=== PATIENT | female | born 1955 | race Caucasian/White ===

== ENCOUNTER 2018-04-21 14:40 | Inpatient (IN) | payer BC ==
[~2018-04-21] VITALS: Ht 162.6 cm; Wt 69.5 kg
[~2018-04-21 14:40] MED LIST: ADVAIR; ALBU3IS; ALBU3IS INH; ALBU90I INH; ALBU90OI; ALBU90OI INH; ALBU90OI6 INH; ALORA; AMPI500 PO; APAP; AZIT250 PO; BENA20; BENA20 PO; BUDE200IP; BUPR150T2; Budeprion Sr150 MG PO; CALCAVITD PO; CALCIUM; CIPR500 PO; CLON.1 PO; CODEINE; CRUTCH4 USE; DICMIS50EC PO; DICMIS75EC PO; DILT300 PO; DOXY100 PO; ESOM20 PO; ESTR1; ESTR1 PO; ESTR2 PO; FAMC250 PO; FLUSAL2505; FLUSAL2505 IH; GENT.3OPSA OS; HYDACE5; HYDACE5 PO; LORA1; LORA1 PO; LORAZEPAM; METO10 PO; METO5A PO; MONT10T PO; Monodox100 MG PO; NORTRIPTYLINE; PRED10 PO; PRED20 PO; PSEHYDGUAL PO; Prednisone20 MG PO; SULTRIDS PO; TIOT18 IH; TRAM50; TRAM50 PO; ZOLP10; ZOLP10 PO; [UNRECOGNIZED DRUG - REMARK]
[2018-04-21 15:50] LABS: BASOPHILS ABSOLUTE AUTO 0.04 K/mm3 (0.00-0.23); BASOPHILS PERCENT AUTO 0 % (0-2); EOSINOPHILS ABSOLUTE AUTO 0.15 K/mm3 (0.00-0.68); EOSINOPHILS PERCENT AUTO 1 % (0-6); Hematocrit 44.2 % (33.0-51.0); IMMATURE GRAN ABSOLUTE AUTO 0.02 K/mm3 (0.00-0.10); IMMATURE GRAN PERCENT AUTO 0 % (0-1); LYMPHOCYTES ABSOLUTE AUTO 3.28 K/mm3 (0.84-5.20); LYMPHOCYTES PERCENT AUTO 30 % (21-46); MONOCYTES ABSOLUTE AUTO 0.78 K/mm3 (0.16-1.47); MONOCYTES PERCENT AUTO 7 % (4-13); Mean Corpuscular HGB 29.6 pg (26.0-34.0); Mean Corpuscular HGB Conc 33.9 g/dL (31.5-36.5); Mean Corpuscular Volume 87 fL (80-100); Mean Platelet Volume 8.5 fL (9.1-12.4); NEUTROPHILS ABSOLUTE AUTO 6.69 K/mm3 (1.96-9.15); NEUTROPHILS PERCENT AUTO 61 % (41-73); Platelet Count 374 K/mm3 (150-400); RDW Coefficient Variation 12.6 % (11.7-14.2); RDW Standard Deviation 39.9 fL (35.1-46.3); Red Blood Cell Count 5.07 M/mm3 (3.80-5.20); White Blood Cell Count 10.96 K/mm3 (4.00-11.30)
[2018-04-21 16:10] LABS: Albumin, Blood 3.8 g/dL (3.4-5.0); Bilirubin, Total 0.1 mg/dL (0.1-1.0); Bun/Creatinine Ratio 13.9 (12.0-20.0); Calcium, Blood 8.9 mg/dL (8.5-10.1); Creatinine, Blood 1.01 mg/dL (0.40-1.00); Globulin, Blood 3.9 g/dL (2.2-4.0); Potassium, Blood 3.7 mmol/L (3.5-5.5); Total Protein, Blood 7.7 g/dL (6.4-8.2)
[2018-04-21 20:11] LABS: Source, Urine Clean Catch
[2018-04-21 20:19] LABS: Appearance, Urine Hazy (Clear); Blood, Urine 1+ (Neg); Color, Urine Yellow (P-Yellow); Glucose Qualitative, Urine Neg (Neg); Ketones, Urine 1+ (Neg); Leukocyte Esterase, Urine 1+ (Neg); Nitrite, Urine Neg (Neg); Protein, Urine 2+ (Neg); Specific Gravity, Urine 1.025 (1.003-1.022); Urobilinogen, Urine 1+ (Normal)
[2018-04-21 20:28] LABS: Bilirubin, Urine 1+ (Neg)
[2018-04-21 20:30] LABS: Squamous Epithelial Cells Mod /hpf (Few)
[2018-04-21 20:31] LABS: Bacteria Rare /hpf; Red Blood Cells, Urine Not Seen /hpf (0-2)
[2018-04-21 21:35] LABS: Cholesterol 200 mg/dL (50-200); Triglycerides 379 mg/dL (30-160)
[2018-04-22 04:08] LABS: Hematocrit 38.5 % (33.0-51.0); Hemoglobin 12.9 g/dL (11.5-16.0); Mean Corpuscular HGB 29.7 pg (26.0-34.0); Mean Corpuscular HGB Conc 33.5 g/dL (31.5-36.5); Mean Corpuscular Volume 89 fL (80-100); Mean Platelet Volume 8.2 fL (9.1-12.4); Platelet Count 257 K/mm3 (150-400); RDW Coefficient Variation 12.5 % (11.7-14.2); RDW Standard Deviation 40.9 fL (35.1-46.3); Red Blood Cell Count 4.35 M/mm3 (3.80-5.20); White Blood Cell Count 7.51 K/mm3 (4.00-11.30)
[2018-04-22 04:26] LABS: Alanine Aminotransfer (ALT/SGP 16 U/L (12-78); Albumin, Blood 2.9 g/dL (3.4-5.0); Alk Phos 65 U/L (50-136); Anion Gap 6 mmol/L (6-16); Aspartate Aminotrans (AST/SGOT 19 U/L (12-37); Bilirubin, Total 0.4 mg/dL (0.1-1.0); Blood Urea Nitrogen 15 mg/dL (8-24); Bun/Creatinine Ratio 15.7 (12.0-20.0); CO2, Blood 22 mmol/L (21-32); Calcium, Blood 7.3 mg/dL (8.5-10.1); Chloride, Blood 112 mmol/L (98-108); Creatinine, Blood 0.96 mg/dL (0.40-1.00); Globulin, Blood 2.9 g/dL (2.2-4.0); Glomerular Filtration Rate >60 (60-); Glucose, Blood 95 mg/dL (70-99); Potassium, Blood 4.6 mmol/L (3.5-5.5); Sodium, Blood 140 mmol/L (136-145); Total Protein, Blood 5.8 g/dL (6.4-8.2)
[2018-04-22] MEDS ORDERED: ALBU90OI INH (12:19)
[2018-04-22] MEDS ORDERED: OMEPRAZOLE MAGN20 MG PO (12:19)
[2018-04-22] MEDS ORDERED: ESTRADIOL1 MG PO (12:20)
[2018-04-22] MEDS ORDERED: Lorazepam0.5 MG PO (12:20)
--- NOTE | 2018-04-22 13:30 | NUR ---
ADMIT NOTE- PT ADMITTED TO DAY SURGERY-MEDICAL STATUS. AWAKE, ALERT, COOPERATIVE. STATES ANXIOUS, STATES DID NOT WANT TO GO HOME, STILL HAVING PAIN. EMOTIONAL SUPPORT, REASSURANCE GIVEN WITH IMPROVEMENT. BP INITIALLY ELEVATED-173/88 AFTER FEW MINUTES OF RELAXING REPEAT BP 156/81. TEMP 99. C/O ABDOMINAL PAIN AND TENDERNESS-MID ABDOMEN, ABDOMEN SOFT WITH BOWEL SOUNDS. IV NS WITH 20 MEQ KCL AT 150 CC/HR VIA LEFT WRIST, SITE INTACT. HAS SWELLING LEFT AC-STATES HAD PREVIOUS LAB DRAW. LUNGS CLEAR, NO SOB. STATES PAIN DECREASING AFTER RX IN ER BEFORE TRANSFER. WAS ABLE TO STAND TO TRANSFER. ADMIT DONE, QUESTIONS ANSWERED.
--- NOTE | 2018-04-22 14:36 | NUR ---
HAS BEEN ABLE TO DOZE WITHOUT PROBLEMS. OXYGEN SATURATION 97-98% C/O ABDOMINAL PAIN RATES 6 ON SCALE, REQUESTING RX. PT'S HERE-UPDATED.
--- NOTE | 2018-04-22 16:45 | NUR ---
PT TO ROOM 220 VIA WC. PT ALERT AND ORIENTED. PT AMB TO RR. ORIENTED TO ROOM AND CALL LIGHT.
--- NOTE | 2018-04-22 16:59 | NUR ---
REPORT GIVEN, PT TO ROOM 220. PT ABLE TO TRANSFER TO WHEELCHAIR.
--- NOTE | 2018-04-22 17:23 | NUR ---
PT MEDICATED WITH ZOFRAN AND FENTANYL PER ORDERS. ICE CHIPS PROVIDED.
--- NOTE | 2018-04-22 18:37 | NUR ---
PT VOMITED X1 IN RR. PAIN 5/10.
--- NOTE | 2018-04-22 23:21 | NUR ---
SPOKE W/ HOSPITALIST JENNIFER, ORDERED PT'S HOME BENAZAPRIL, FIRST DOSE NOW FOR ELEVATED BP. GIVE LABETALOL IN ABOUT AN HOUR IF BENAZAPRIL INEFFECTIVE.
[2018-04-23] MEDS ORDERED: GUAI600T33 PO (00:33)
[2018-04-23 05:18] LABS: BASOPHILS ABSOLUTE AUTO 0.03 K/mm3 (0.00-0.23); BASOPHILS PERCENT AUTO 1 % (0-2); EOSINOPHILS ABSOLUTE AUTO 0.07 K/mm3 (0.00-0.68); EOSINOPHILS PERCENT AUTO 1 % (0-6); Hematocrit 36.7 % (33.0-51.0); Hemoglobin 12.4 g/dL (11.5-16.0); IMMATURE GRAN PERCENT AUTO 0 % (0-1); LYMPHOCYTES ABSOLUTE AUTO 1.92 K/mm3 (0.84-5.20); LYMPHOCYTES PERCENT AUTO 34 % (21-46); MONOCYTES ABSOLUTE AUTO 0.39 K/mm3 (0.16-1.47); MONOCYTES PERCENT AUTO 7 % (4-13); Mean Corpuscular HGB 29.2 pg (26.0-34.0); Mean Corpuscular HGB Conc 33.8 g/dL (31.5-36.5); Mean Corpuscular Volume 87 fL (80-100); Mean Platelet Volume 8.4 fL (9.1-12.4); NEUTROPHILS ABSOLUTE AUTO 3.24 K/mm3 (1.96-9.15); NEUTROPHILS PERCENT AUTO 57 % (41-73); Platelet Count 255 K/mm3 (150-400); RDW Coefficient Variation 12.3 % (11.7-14.2); RDW Standard Deviation 38.6 fL (35.1-46.3); Red Blood Cell Count 4.24 M/mm3 (3.80-5.20); White Blood Cell Count 5.65 K/mm3 (4.00-11.30)
[2018-04-23 05:43] LABS: Alanine Aminotransfer (ALT/SGP 17 U/L (12-78); Albumin, Blood 3.1 g/dL (3.4-5.0); Alk Phos 65 U/L (50-136); Anion Gap 9 mmol/L (6-16); Aspartate Aminotrans (AST/SGOT 14 U/L (12-37); Bilirubin, Total 0.9 mg/dL (0.1-1.0); Blood Urea Nitrogen 7 mg/dL (8-24); Bun/Creatinine Ratio 9.1 (12.0-20.0); CO2, Blood 21 mmol/L (21-32); Calcium, Blood 7.8 mg/dL (8.5-10.1); Chloride, Blood 109 mmol/L (98-108); Creatinine, Blood 0.77 mg/dL (0.40-1.00); Glomerular Filtration Rate >60 (60-); Glucose, Blood 88 mg/dL (70-99); Potassium, Blood 4.5 mmol/L (3.5-5.5); Sodium, Blood 139 mmol/L (136-145); Total Protein, Blood 6.1 g/dL (6.4-8.2)
--- NOTE | 2018-04-23 06:32 | NUR ---
SHIFT SUMMARY PT ADMITTED FOR ACUTE PANCREATITIS. MEDICATED FOR PAIN AND NAUSEA PER EMAR. SHE HAD SOME DRY HEAVING AND BILE BUT NO REAL EMESIS. TAKING SIPS AND CHIPS AND MEDS ONLY. PT HAD HTN OVERNIGHT AND REQUIRED IV HYDRALAZYNE BUT HER BP DID NOT IMPROVE BECAUSE SHE WAS STILL FEELING SICK AND PAINFUL. ORDERED HER HOME BENAZAPRIL PER HOSPITALIST AND PLACED TELE IN CASE OF IV LABETALOL USE, BUT THE LABETALOL WAS NOT REQUIRED. PT WAS SINUS TACH ON TELE. WILL CTM UNTIL PASS TO NEXT SHIFT.
--- NOTE | 2018-04-23 07:00 | NUR ---
REPORT FROM PABLO BIRD. ASSUMED PT CARE.
--- NOTE | 2018-04-23 07:45 | NUR ---
PT LYING IN BED. NADN. ASSESSMENT CHARTED. PT DENIES PAIN/NAUSEA AT THIS TIME. STATES NAUSEA HAPPENS IF SHE EATS TOO MANY ICE CHIPS. WILL DISCUSS DIET ADVANCEMENT AND HOME MEDS WITH PROVIDER. CALL LIGHT IN REACH.
--- NOTE | 2018-04-23 09:20 | NUR ---
PT MEDICATED PER EMAR. PAIN MEDS AND NAUSEA MEDS PROVIDED. PT UP TO RR FOR TOILETING AND TO BRUSH TEETH. FAMILY AT BEDSIDE.
--- NOTE | 2018-04-23 09:46 | NUR ---
ice chips provided to pt. coffee provided to pt spouse. pt sitting on edge of bed.
--- NOTE | 2018-04-23 13:26 | NUR ---
PT SLEEPING. SPOUSE AT BEDSIDE. NEW BAG IVF STARTED.
--- NOTE | 2018-04-23 15:05 | NUR ---
dr villaseñor to room for eval.
--- NOTE | 2018-04-23 16:47 | NUR ---
PT DENIES NAUSEA, DENIES PAIN. MEDICATED WITH HYDRALAZINE FOR HBP. ASKING FOR SHELTON THOMAS.
--- NOTE | 2018-04-23 17:35 | NUR ---
PT STATES VEGETABLE BROTH MADE HER NAUSEATED. PT REQUESTED NAUSEA AND PAIN MEDS. BOTH PROVIDED PER EMAR.
--- NOTE | 2018-04-23 18:27 | NUR ---
PAIN IMPROVED. PT C/O PEREZ AT THIS TIME. PT STATES NAUSEA STILL PRESENT. NEW ICE CHIPS PROVIDED. CHICKEN BROTH PROVIDED.
--- NOTE | 2018-04-24 07:10 | NUR ---
REPORT FROM KENTON BIRD. ASSUMED PT CARE. PT RESTING IN POSITION OF COMFORT.
--- NOTE | 2018-04-24 07:39 | NUR ---
SHIFT SUMMARY PT REMAINS ON FLOOR FOR ACUTE PANCREATITIS. SHE HAS BEEN GENERALLY MORE COMFORTABLE OVERNIGHT, MEDICATED FOR PAIN AND NAUSEA X1, SLEPT MOST OF THE NIGHT. SHE KEPT ICE CHIPS AND WATER DOWN, DID NOT REATTEMPT FURTHER CLEARS AT THIS TIME. NO ACUTE CHANGES. PT A&O, MAKES NEEDS KNOWN. INDEP TO BR. MAINTAINENCE FLUIDS W/ POTASSIUM CONTINUED. REPORT PASSED TO ONCOMING SHIFT.
--- NOTE | 2018-04-24 08:20 | NUR ---
SHELTON PROVIDED PER PT REQUEST. PT MEDICATED WITH NEW IVF, FENTANYL AND REGLAN. WILL CONT TO MONITOR.
--- NOTE | 2018-04-24 09:35 | NUR ---
DR ISTRATE TO ROOM. PLAN FOR SOME REPEAT LABS TODAY, A REPEAT CXR AND POT DC HOME.
--- NOTE | 2018-04-24 09:45 | NUR ---
PT UP TO SHOWER INDEPENDENTLY. PT IV COVERED.
[2018-04-24 10:28] LABS: BASOPHILS ABSOLUTE AUTO 0.03 K/mm3 (0.00-0.23); BASOPHILS PERCENT AUTO 1 % (0-2); EOSINOPHILS ABSOLUTE AUTO 0.08 K/mm3 (0.00-0.68); EOSINOPHILS PERCENT AUTO 1 % (0-6); Hematocrit 38.1 % (33.0-51.0); Hemoglobin 12.8 g/dL (11.5-16.0); IMMATURE GRAN PERCENT AUTO 0 % (0-1); LYMPHOCYTES PERCENT AUTO 33 % (21-46); MONOCYTES ABSOLUTE AUTO 0.41 K/mm3 (0.16-1.47); MONOCYTES PERCENT AUTO 7 % (4-13); Mean Corpuscular HGB 29.6 pg (26.0-34.0); Mean Corpuscular HGB Conc 33.6 g/dL (31.5-36.5); Mean Corpuscular Volume 88 fL (80-100); Mean Platelet Volume 8.2 fL (9.1-12.4); NEUTROPHILS ABSOLUTE AUTO 3.73 K/mm3 (1.96-9.15); NEUTROPHILS PERCENT AUTO 59 % (41-73); Platelet Count 282 K/mm3 (150-400); RDW Standard Deviation 38.7 fL (35.1-46.3); Red Blood Cell Count 4.33 M/mm3 (3.80-5.20); White Blood Cell Count 6.35 K/mm3 (4.00-11.30)
--- NOTE | 2018-04-24 10:33 | NUR ---
PT TO IMAGING.
[2018-04-24 11:02] LABS: Alanine Aminotransfer (ALT/SGP 22 U/L (12-78); Albumin, Blood 3.5 g/dL (3.4-5.0); Alk Phos 68 U/L (50-136); Anion Gap 11 mmol/L (6-16); Aspartate Aminotrans (AST/SGOT 13 U/L (12-37); Bilirubin, Total 0.4 mg/dL (0.1-1.0); Blood Urea Nitrogen 6 mg/dL (8-24); Bun/Creatinine Ratio 8.2 (12.0-20.0); CO2, Blood 21 mmol/L (21-32); Calcium, Blood 8.5 mg/dL (8.5-10.1); Chloride, Blood 104 mmol/L (98-108); Creatinine, Blood 0.74 mg/dL (0.40-1.00); Globulin, Blood 3.4 g/dL (2.2-4.0); Glomerular Filtration Rate >60 (60-); Glucose, Blood 100 mg/dL (70-99); Potassium, Blood 3.7 mmol/L (3.5-5.5); Sodium, Blood 136 mmol/L (136-145); Total Protein, Blood 6.9 g/dL (6.4-8.2)
--- NOTE | 2018-04-24 12:20 | NUR ---
PT MOVING ABOUT IN ROOM. FAMILY PRESENT. SHELTON PAUL.
--- NOTE | 2018-04-24 13:16 | NUR ---
DR FERRERA CALLED RE PT JOSEFA PO AND LAB RESULTS. AWAITING CALL BACK. PT JOSEFA PO, VSS (BP IMPORVED). PT PROVIDED MORE CHICKEN NOODLE SOUP.
--- NOTE | 2018-04-24 13:40 | NUR ---
ISTRATE UPDATED ON PT READINESS FOR DC.
--- NOTE | 2018-04-24 14:45 | NUR ---
THIS RN ARRANGED NEW PT APPT WITH DR ONEILL. PT AWARE. PT PROVIDED APPLICATION AND INFORMATION FOR HOSP FINANCIAL ASSISTANCE.
--- NOTE | 2018-04-24 15:10 | NUR ---
DISCUSSED DC WITH PT. REVIEWED PACKET AND PRESCRIPTION INFO. DISCUSSED NEW PT APPT WITH PT AND SPOUSE. PT VERBALIZED UNDERSTANDING.
--- NOTE | 2018-04-24 15:24 | NUR ---
PT ASSISTED TO DC LOBBY VIA WC WITH FAMILY. ALL BELONGINGS WITH PT.
== END 2018-04-24 15:32 | disposition home or self-care (01) | DRG 440 ==
LOC: ER 14:40 → ERHOLD 21:41 → SURS 04-22 16:51
PROVIDERS: Family Medicine; Internal Medicine; Nurse Practitioner Acute Care; Physician Assistant; ADMIT Internal Medicine
DX: K85.20 Alcohol induced acute pancreatitis without necrosis or infection (principal); I10 Essential (primary) hypertension; E78.1 Pure hyperglyceridemia; F32.9 Major depressive disorder, single episode, unspecified; J45.20 Mild intermittent asthma, uncomplicated; K59.09 Other constipation; Z88.5 Allergy status to narcotic agent; Z88.2 Allergy status to sulfonamides; Z88.8 Allergy status to other drugs, medicaments and biological substances; Z87.891 Personal history of nicotine dependence
CPT/HCPCS: 36415; 71046; 74176; 76705; 80053; 81001; 82465; 83605; 83690; 84478; 85025; 85027; 87086; 93005; 93010; 94640; 94760; 96361; 96374; 96375; 96376; 99285-25; J0360; J1650; J1885; J2060; J2405; J2765; J3010; J3480; J7030

== ENCOUNTER 2018-06-12 10:29 | Emergency (ER) | payer BC ==
[~2018-06-12] VITALS: Ht 162.6 cm; Wt 68.0 kg
[~2018-06-12 10:29] MED LIST changes: +ESTRADIOL1 MG PO; +GUAI600T33 PO; +Lorazepam0.5 MG PO; +OMEPRAZOLE MAGN20 MG PO
[2018-06-12 11:22] LABS: Source, Urine Clean Catch
[2018-06-12 11:24] LABS: Blood, Urine 1+ (Neg); Glucose Qualitative, Urine Neg (Neg); Ketones, Urine Neg (Neg); Leukocyte Esterase, Urine 3+ (Neg); Nitrite, Urine Pos (Neg); Protein, Urine 1+ (Neg); Urobilinogen, Urine 2+ (Normal)
[2018-06-12 11:46] LABS: Bilirubin, Urine 2+ (Neg)
[2018-06-12 11:47] LABS: Appearance, Urine Hazy (Clear); Bacteria Many /hpf; Color, Urine Amber (P-Yellow); Squamous Epithelial Cells Few /hpf (Few); White Blood Cells, Urine 50-100 /hpf (0-5)
[2018-06-12] MEDS ORDERED: Pyridium100 MG PO (11:49)
[2018-06-12] MEDS ORDERED: CEFP200 PO (11:49)
[2018-06-16] MEDS ORDERED: ALBU3IS INH (11:43)
[2018-06-16] MEDS ORDERED: Prednisone20 MG PO (11:43)
== END 2018-06-12 11:58 | disposition home or self-care (01) ==
LOC: ER 10:29
PROVIDERS: Physician Assistant
DX: N39.0 Urinary tract infection, site not specified (principal); Z88.5 Allergy status to narcotic agent; Z88.8 Allergy status to other drugs, medicaments and biological substances; Z88.2 Allergy status to sulfonamides; Z88.1 Allergy status to other antibiotic agents; Z79.899 Other long term (current) drug therapy; Z79.52 Long term (current) use of systemic steroids; I10 Essential (primary) hypertension; J45.909 Unspecified asthma, uncomplicated; Z87.891 Personal history of nicotine dependence
CPT/HCPCS: 81001; 87077; 87086; 87186; 99283

== ENCOUNTER 2018-06-18 11:56 | Emergency (ER) | payer BC ==
[~2018-06-18] VITALS: Ht 162.6 cm; Wt 68.0 kg
[~2018-06-18 11:56] MED LIST changes: +CEFP200 PO; +Pyridium100 MG PO
[2018-06-18 13:05] LABS: BASOPHILS ABSOLUTE AUTO 0.03 K/mm3 (0.00-0.23); BASOPHILS PERCENT AUTO 0 % (0-2); EOSINOPHILS ABSOLUTE AUTO 0.02 K/mm3 (0.00-0.68); EOSINOPHILS PERCENT AUTO 0 % (0-6); Hematocrit 36.4 % (33.0-51.0); Hemoglobin 11.7 g/dL (11.5-16.0); IMMATURE GRAN ABSOLUTE AUTO 0.16 K/mm3 (0.00-0.10); IMMATURE GRAN PERCENT AUTO 1 % (0-1); LYMPHOCYTES ABSOLUTE AUTO 1.67 K/mm3 (0.84-5.20); LYMPHOCYTES PERCENT AUTO 11 % (21-46); MONOCYTES ABSOLUTE AUTO 0.34 K/mm3 (0.16-1.47); MONOCYTES PERCENT AUTO 2 % (4-13); Mean Corpuscular HGB 29.1 pg (26.0-34.0); Mean Corpuscular HGB Conc 32.1 g/dL (31.5-36.5); Mean Corpuscular Volume 91 fL (80-100); Mean Platelet Volume 8.8 fL (9.1-12.4); NEUTROPHILS PERCENT AUTO 86 % (41-73); NRBC ABSOLUTE 0.03 K/mm3 (0.00-0.02); NRBC Auto 0.2 /100 WBC (0.0-0.2); Platelet Count 311 K/mm3 (150-400); RDW Standard Deviation 47.2 fL (35.1-46.3); Red Blood Cell Count 4.02 M/mm3 (3.80-5.20); White Blood Cell Count 15.62 K/mm3 (4.00-11.30)
[2018-06-18 13:28] LABS: Albumin, Blood 4.2 g/dL (3.4-5.0); Albumin/Globulin Ratio 1.4 (0.8-1.8); Bilirubin, Total 0.8 mg/dL (0.1-1.0); Bun/Creatinine Ratio 19.8 (12.0-20.0); Calcium, Blood 9.1 mg/dL (8.5-10.1); Creatinine, Blood 1.26 mg/dL (0.40-1.00); Total Protein, Blood 7.2 g/dL (6.4-8.2)
[2018-06-19] MEDS ORDERED: Proventil5 MG/1 ML INH (17:28)
== END 2018-06-18 14:36 | disposition home or self-care (01) ==
LOC: ER 11:56
PROVIDERS: Physician Assistant
DX: J45.901 Unspecified asthma with (acute) exacerbation (principal); I10 Essential (primary) hypertension; Z79.899 Other long term (current) drug therapy; Z88.5 Allergy status to narcotic agent; Z88.2 Allergy status to sulfonamides
CPT/HCPCS: 36415; 80053; 85025; 94644; 96360; 99285-25; J7030

== ENCOUNTER 2018-08-14 10:25 | Emergency (ER) | payer MEDICARE, OTHER ==
[~2018-08-14] VITALS: Ht 162.6 cm; Wt 68.0 kg
[~2018-08-14 10:25] MED LIST changes: +Proventil5 MG/1 ML INH
[2018-08-14 10:50] LABS: Source, Urine Clean Catch
[2018-08-14 10:53] LABS: Bilirubin, Urine Neg (Neg); Blood, Urine 1+ (Neg); Glucose Qualitative, Urine Neg (Neg); Ketones, Urine Neg (Neg); Leukocyte Esterase, Urine 1+ (Neg); Nitrite, Urine Pos (Neg); Protein, Urine 1+ (Neg); Urobilinogen, Urine NORM (Normal)
[2018-08-14 11:08] LABS: Appearance, Urine Clear (Clear); Color, Urine Yellow (P-Yellow)
[2018-08-14 11:09] LABS: Red Blood Cells, Urine 0-2 /hpf (0-2); Squamous Epithelial Cells Few /hpf (Few)
[2018-08-14 11:10] LABS: Amorphous Mod ({null, 0-Heavy}); Bacteria Few /hpf
[2018-08-14 12:59] LABS: BASOPHILS ABSOLUTE AUTO 0.03 K/mm3 (0.00-0.23); BASOPHILS PERCENT AUTO 1 % (0-2); EOSINOPHILS ABSOLUTE AUTO 0.08 K/mm3 (0.00-0.68); EOSINOPHILS PERCENT AUTO 1 % (0-6); Hematocrit 39.2 % (33.0-51.0); Hemoglobin 13.1 g/dL (11.5-16.0); IMMATURE GRAN ABSOLUTE AUTO 0.01 K/mm3 (0.00-0.10); IMMATURE GRAN PERCENT AUTO 0 % (0-1); LYMPHOCYTES ABSOLUTE AUTO 2.49 K/mm3 (0.84-5.20); LYMPHOCYTES PERCENT AUTO 39 % (21-46); MONOCYTES ABSOLUTE AUTO 0.43 K/mm3 (0.16-1.47); MONOCYTES PERCENT AUTO 7 % (4-13); Mean Corpuscular HGB 29.2 pg (26.0-34.0); Mean Corpuscular HGB Conc 33.4 g/dL (31.5-36.5); Mean Corpuscular Volume 87 fL (80-100); Mean Platelet Volume 9.1 fL (9.1-12.4); NEUTROPHILS ABSOLUTE AUTO 3.38 K/mm3 (1.96-9.15); NEUTROPHILS PERCENT AUTO 53 % (41-73); Platelet Count 300 K/mm3 (150-400); RDW Coefficient Variation 13.2 % (11.7-14.2); RDW Standard Deviation 42.7 fL (35.1-46.3); Red Blood Cell Count 4.49 M/mm3 (3.80-5.20); White Blood Cell Count 6.42 K/mm3 (4.00-11.30)
[2018-08-14 13:06] LABS: Alanine Aminotransfer (ALT/SGP 24 U/L (12-78); Albumin, Blood 3.8 g/dL (3.4-5.0); Albumin/Globulin Ratio 1.2 (0.8-1.8); Alk Phos 82 U/L (50-136); Anion Gap 8 mmol/L (6-16); Aspartate Aminotrans (AST/SGOT 23 U/L (12-37); Bilirubin, Total 0.5 mg/dL (0.1-1.0); Blood Urea Nitrogen 15 mg/dL (8-24); Bun/Creatinine Ratio 15.5 (12.0-20.0); CO2, Blood 26 mmol/L (21-32); Calcium, Blood 8.8 mg/dL (8.5-10.1); Chloride, Blood 105 mmol/L (98-108); Creatinine, Blood 0.97 mg/dL (0.40-1.00); Globulin, Blood 3.3 g/dL (2.2-4.0); Glomerular Filtration Rate >60 (60-); Glucose, Blood 97 mg/dL (70-99); Sodium, Blood 139 mmol/L (136-145); Total Protein, Blood 7.1 g/dL (6.4-8.2)
== END 2018-08-14 14:59 | disposition home or self-care (01) ==
LOC: ER 10:25
PROVIDERS: Emergency Medicine
DX: R10.13 Epigastric pain (principal); R10.11 Right upper quadrant pain; R11.0 Nausea; J45.909 Unspecified asthma, uncomplicated; I10 Essential (primary) hypertension; M54.9 Dorsalgia, unspecified; G89.29 Other chronic pain; Z88.5 Allergy status to narcotic agent; Z88.2 Allergy status to sulfonamides; Z88.8 Allergy status to other drugs, medicaments and biological substances; Z79.899 Other long term (current) drug therapy; Z87.891 Personal history of nicotine dependence
CPT/HCPCS: 36415; 76705; 80053; 81001; 83690; 85025; 87086; 94640; 96361; 96374; 96375; 99284-25; J1885; J2405; J2765; J3010; J7030

== ENCOUNTER 2018-11-26 08:42 | Emergency (ER) | payer MEDICARE, OTHER ==
[~2018-11-26] VITALS: Ht 162.6 cm; Wt 70.3 kg
[2018-11-26 09:13] LABS: BASOPHILS ABSOLUTE AUTO 0.03 K/mm3 (0.00-0.23); BASOPHILS PERCENT AUTO 1 % (0-2); EOSINOPHILS ABSOLUTE AUTO 0.07 K/mm3 (0.00-0.68); EOSINOPHILS PERCENT AUTO 1 % (0-6); Hematocrit 37.9 % (33.0-51.0); Hemoglobin 12.7 g/dL (11.5-16.0); IMMATURE GRAN ABSOLUTE AUTO 0.01 K/mm3 (0.00-0.10); IMMATURE GRAN PERCENT AUTO 0 % (0-1); LYMPHOCYTES ABSOLUTE AUTO 3.16 K/mm3 (0.84-5.20); LYMPHOCYTES PERCENT AUTO 53 % (21-46); MONOCYTES ABSOLUTE AUTO 0.37 K/mm3 (0.16-1.47); MONOCYTES PERCENT AUTO 6 % (4-13); Mean Corpuscular HGB 28.7 pg (26.0-34.0); Mean Corpuscular HGB Conc 33.5 g/dL (31.5-36.5); Mean Corpuscular Volume 86 fL (80-100); Mean Platelet Volume 8.9 fL (9.1-12.4); NEUTROPHILS PERCENT AUTO 39 % (41-73); Platelet Count 246 K/mm3 (150-400); RDW Standard Deviation 40.3 fL (35.1-46.3); Red Blood Cell Count 4.43 M/mm3 (3.80-5.20); White Blood Cell Count 5.94 K/mm3 (4.00-11.30)
[2018-11-26 09:29] LABS: Alanine Aminotransfer (ALT/SGP 23 U/L (12-78); Albumin, Blood 3.6 g/dL (3.4-5.0); Albumin/Globulin Ratio 1.2 (0.8-1.8); Alk Phos 61 U/L (50-136); Anion Gap 6 mmol/L (6-16); Aspartate Aminotrans (AST/SGOT 17 U/L (12-37); Bilirubin, Total 0.4 mg/dL (0.1-1.0); Blood Urea Nitrogen 19 mg/dL (8-24); CO2, Blood 26 mmol/L (21-32); Calcium, Blood 8.8 mg/dL (8.5-10.1); Chloride, Blood 106 mmol/L (98-108); Creatinine, Blood 0.87 mg/dL (0.40-1.00); Glomerular Filtration Rate >60 (60-); Glucose, Blood 100 mg/dL (70-99); Sodium, Blood 138 mmol/L (136-145); Total Protein, Blood 6.6 g/dL (6.4-8.2); Troponin I <0.015 ng/mL (0.000-0.040)
[2018-11-26] MEDS ORDERED: Robaxin750 MG PO (09:45)
[2018-11-26] MEDS ORDERED: Prednisone10 MG (09:46)
[2018-11-26] MEDS ORDERED: MONT10T PO (09:49)
[2018-11-26 10:55] LABS: Source, Urine Clean Catch
[2018-11-26 11:00] LABS: Appearance, Urine Clear (Clear); Bilirubin, Urine Neg (Neg); Blood, Urine Neg (Neg); Color, Urine Yellow (P-Yellow); Glucose Qualitative, Urine Neg (Neg); Ketones, Urine Neg (Neg); Leukocyte Esterase, Urine Neg (Neg); Nitrite, Urine Neg (Neg); Protein, Urine Neg (Neg); Specific Gravity, Urine 1.015 (1.003-1.022); Urobilinogen, Urine NORM (Normal); pH, Urine 6.5 (5.0-8.0)
== END 2018-11-26 12:07 | disposition home or self-care (01) ==
LOC: ER 08:42
PROVIDERS: Emergency Medicine
DX: R55 Syncope and collapse (principal); S00.12XA Contusion of left eyelid and periocular area, initial encounter; S80.212A Abrasion, left knee, initial encounter; I10 Essential (primary) hypertension; J45.909 Unspecified asthma, uncomplicated; Z87.01 Personal history of pneumonia (recurrent); Z87.891 Personal history of nicotine dependence; Z88.5 Allergy status to narcotic agent; Z88.8 Allergy status to other drugs, medicaments and biological substances; Z88.2 Allergy status to sulfonamides; Z88.1 Allergy status to other antibiotic agents; Z79.899 Other long term (current) drug therapy; X58.XXXA Exposure to other specified factors, initial encounter
CPT/HCPCS: 70450; 80053; 81003; 83690; 84484; 85025; 93005; 93010; 99284-25

== ENCOUNTER 2020-02-06 16:22 | Inpatient (IN) | payer MEDICARE, OTHER ==
[~2020-02-06] VITALS: Ht 162.6 cm; Wt 78.8 kg
[~2020-02-06 16:22] MED LIST changes: +Avidoxy100 MG PO; +Prednisone10 MG; +Robaxin750 MG PO
[2020-02-06 19:05] LABS: Influenza A, PCR Negative (NEGATIVE); Influenza B, PCR Negative (NEGATIVE); Resp Syncytial Virus, PCR Negative (NEGATIVE); SARS-Cov-2 (COVID-19) PCR, MMC Negative (NEGATIVE)
[2020-02-06] MEDS ORDERED: AMOCLA875 PO (19:12)
[2020-02-06] MEDS ORDERED: ESCI20 PO (21:14)
[2020-02-06] MEDS ORDERED: FAMC250 PO (21:14)
[2020-02-06] MEDS ORDERED: Qualaquin324 MG PO (21:14)
[2020-02-06] MEDS ORDERED: CHLO25B PO (21:15)
[2020-02-06] MEDS ORDERED: DILT60ER PO (21:15)
[2020-02-06] MEDS ORDERED: ESTRADIOL1 M1 PO (21:16)
[2020-02-06] MEDS ORDERED: EC-NAPROXEN375 MG PO (21:17)
[2020-02-06] MEDS ORDERED: AMIT25 PO (21:17)
--- NOTE | 2020-02-07 04:47 | NUR ---
MARBLE FINISHER SUMMARY PT ADMITTED FROM ED THIS SHIFT. PT A&OX4, ABLE TO MAKE NEEDS KNOWN. PLEASANT AND COOPERATIVE TO CARE. NO C/O PAIN OR ANY DISCOMFORT. DENIES CP OR N&V. EXPIRATORY WHEEZE NOTED UPON AUSCULTATION, SOB WITH EXERTION. PT CALM AND RESTED IN BED AT THIS TIME. RESPIRATION EVEN AND UNLABORED IN RA. SATS >90%. VSS. PT SBA TO BATHROOM. BED AT LOWEST POSITION. CALL LIGHT WITHIN REACH.
[2020-02-07 05:35] LABS: BASOPHILS ABSOLUTE AUTO 0.04 K/mm3 (0.00-0.23); BASOPHILS PERCENT AUTO 0 % (0-2); EOSINOPHILS PERCENT AUTO 0 % (0-6); Hematocrit 36.9 % (33.0-51.0); Hemoglobin 12.3 g/dL (11.5-16.0); IMMATURE GRAN ABSOLUTE AUTO 0.61 K/mm3 (0.00-0.10); IMMATURE GRAN PERCENT AUTO 3 % (0-1); LYMPHOCYTES ABSOLUTE AUTO 1.23 K/mm3 (0.84-5.20); LYMPHOCYTES PERCENT AUTO 6 % (21-46); MONOCYTES ABSOLUTE AUTO 0.56 K/mm3 (0.16-1.47); MONOCYTES PERCENT AUTO 3 % (4-13); Mean Corpuscular HGB 29.9 pg (26.0-34.0); Mean Corpuscular HGB Conc 33.3 g/dL (31.5-36.5); Mean Corpuscular Volume 90 fL (80-100); Mean Platelet Volume 8.4 fL (9.1-12.4); NEUTROPHILS ABSOLUTE AUTO 17.39 K/mm3 (1.96-9.15); NEUTROPHILS PERCENT AUTO 88 % (41-73); Platelet Count 275 K/mm3 (150-400); RDW Coefficient Variation 13.2 % (11.7-14.2); RDW Standard Deviation 43.5 fL (35.1-46.3); Red Blood Cell Count 4.12 M/mm3 (3.80-5.20); White Blood Cell Count 19.83 K/mm3 (4.00-11.30)
[2020-02-07 06:01] LABS: Alanine Aminotransfer (ALT/SGP 34 U/L (12-78); Albumin, Blood 2.9 g/dL (3.4-5.0); Alk Phos 55 U/L (50-136); Anion Gap 10 mmol/L (6-16); Aspartate Aminotrans (AST/SGOT 13 U/L (12-37); Bilirubin, Total 0.3 mg/dL (0.1-1.0); Blood Urea Nitrogen 27 mg/dL (8-24); Bun/Creatinine Ratio 29.4 (12.0-20.0); CO2, Blood 26 mmol/L (21-32); Calcium, Blood 9.2 mg/dL (8.5-10.1); Chloride, Blood 98 mmol/L (98-108); Creatinine, Blood 0.92 mg/dL (0.40-1.00); Glomerular Filtration Rate >60 (60-); Glucose, Blood 143 mg/dL (70-99); Potassium, Blood 4.7 mmol/L (3.5-5.5); Sodium, Blood 134 mmol/L (136-145); Total Protein, Blood 5.9 g/dL (6.4-8.2)
--- NOTE | 2020-02-07 15:19 | NUR ---
PATIENT PLEASANT AND COOPERATIVE WITH STAFF. BP SLIGHTLY ELEVATED, VITALS OTHERWISE WNL. L/S WITH WHEEZES T/O. PATIENT REQUESTS BREATHING TREATMENTS PER RT NEEDED. INDEPENDENT IN ROOM. CALLS FOR STAFF ASSIST NEEDED. PATIENT RESTING IN ROOM WITH FAMILY AT BEDSIDE AT THIS TIME. WILL CONTINUE TO MONITOR AND PROVIDE CARE NEEDED.
[2020-02-07] MEDS ORDERED: CLON1 PO (15:32)
[2020-02-07] MEDS ORDERED: NYAMYC15 G1 TOP (15:32)
--- NOTE | 2020-02-08 05:43 | NUR ---
SHIFT SUMMARY: BP 165 THIS AM. 02 91% ON RA. RESPS REG, EVEN, NON-LABORED. WHEEZING AUSCULTATED IN B UPPER LOBES. PT REPORTS OCC, INFREQUENT, DRY COUGH. CONTINUES W/ EXERTIONAL DYSPNEA. NS AT 100MLS/HR. IV SOLU-MEDROL ADMINISTERED PER ORDERS. NO ACUTE CHANGES OVERNIGHT. WILL CONT TO MONITOR.
[2020-02-08 06:05] LABS: BASOPHILS ABSOLUTE AUTO 0.03 K/mm3 (0.00-0.23); BASOPHILS PERCENT AUTO 0 % (0-2); EOSINOPHILS PERCENT AUTO 0 % (0-6); Hematocrit 37.3 % (33.0-51.0); Hemoglobin 12.2 g/dL (11.5-16.0); IMMATURE GRAN ABSOLUTE AUTO 0.59 K/mm3 (0.00-0.10); IMMATURE GRAN PERCENT AUTO 4 % (0-1); LYMPHOCYTES ABSOLUTE AUTO 1.35 K/mm3 (0.84-5.20); LYMPHOCYTES PERCENT AUTO 8 % (21-46); MONOCYTES ABSOLUTE AUTO 0.67 K/mm3 (0.16-1.47); MONOCYTES PERCENT AUTO 4 % (4-13); Mean Corpuscular HGB 29.6 pg (26.0-34.0); Mean Corpuscular HGB Conc 32.7 g/dL (31.5-36.5); Mean Corpuscular Volume 91 fL (80-100); Mean Platelet Volume 8.4 fL (9.1-12.4); NEUTROPHILS ABSOLUTE AUTO 13.82 K/mm3 (1.96-9.15); NEUTROPHILS PERCENT AUTO 84 % (41-73); Platelet Count 249 K/mm3 (150-400); RDW Coefficient Variation 13.3 % (11.7-14.2); RDW Standard Deviation 44.1 fL (35.1-46.3); Red Blood Cell Count 4.12 M/mm3 (3.80-5.20); White Blood Cell Count 16.46 K/mm3 (4.00-11.30)
[2020-02-08 06:29] LABS: Albumin, Blood 2.7 g/dL (3.4-5.0); Anion Gap 6 mmol/L (6-16); Blood Urea Nitrogen 34 mg/dL (8-24); CO2, Blood 27 mmol/L (21-32); Calcium, Blood 8.7 mg/dL (8.5-10.1); Chloride, Blood 103 mmol/L (98-108); Creatinine, Blood 1.03 mg/dL (0.40-1.00); Glomerular Filtration Rate 57 (60-); Glucose, Blood 137 mg/dL (70-99); Phosphorus, Blood 3.9 mg/dL (2.5-4.9); Potassium, Blood 4.4 mmol/L (3.5-5.5); Sodium, Blood 136 mmol/L (136-145)
--- NOTE | 2020-02-08 16:52 | NUR ---
PATIENT IS PLEASANT AND COOPERATIVE WITH STAFF. SHE OCCASIONALLY RUNS HIGH WITH HIS BP. MORNING VITALS SHE HAD A SBP IN THE 180s. I ADMINISTERED HER AM MEDS WHICH INCLUDED ALL HER BLOOD PRESSURE MEDICATIONS AND HER BP DID COME DOWN TO A MORE COMFORTABLE SPOT. SHE CONTINUES TO GET A HEADACHE OFF AND ON AND WILL TAKE TYLENOL OR NEPROXYN WITH SOME EFFECTIVENESS. PENDING PATIENT CONTINUING TO IMPROVE IN OVER-ALL STATUS, PATIENT TO DISCHARGE HOME TOMORROW. PATIENT RESTING IN ROOM AT THIS TIME. WILL CONTINUE TO MONITOR AND PROVIDE CARE NEEDED.
--- NOTE | 2020-02-09 04:30 | NUR ---
SHIFT SUMMARY ADMITTED FOR ASTHMA EXACERBATION. FULL CODE. HOPEFUL FOR DC TODAY. IV STEROIDS ARE SCHEDULED. RT TX'S AVAILABLE. TYLENOL AVAILABLE FOR HEADACHES. NO COMPLAINTS THIS SHIFT. HX OF ANXIETY. SHE LIVES WITH FAMILY.
[2020-02-09 05:31] LABS: BASOPHILS ABSOLUTE AUTO 0.05 K/mm3 (0.00-0.23); BASOPHILS PERCENT AUTO 0 % (0-2); EOSINOPHILS PERCENT AUTO 0 % (0-6); Hematocrit 38.8 % (33.0-51.0); Hemoglobin 12.4 g/dL (11.5-16.0); IMMATURE GRAN ABSOLUTE AUTO 1.04 K/mm3 (0.00-0.10); IMMATURE GRAN PERCENT AUTO 5 % (0-1); LYMPHOCYTES PERCENT AUTO 9 % (21-46); MONOCYTES PERCENT AUTO 5 % (4-13); Mean Corpuscular HGB 29.4 pg (26.0-34.0); Mean Corpuscular Volume 92 fL (80-100); Mean Platelet Volume 8.5 fL (9.1-12.4); NEUTROPHILS ABSOLUTE AUTO 16.16 K/mm3 (1.96-9.15); NEUTROPHILS PERCENT AUTO 81 % (41-73); Platelet Count 253 K/mm3 (150-400); RDW Coefficient Variation 13.5 % (11.7-14.2); RDW Standard Deviation 45.4 fL (35.1-46.3); Red Blood Cell Count 4.22 M/mm3 (3.80-5.20); White Blood Cell Count 19.85 K/mm3 (4.00-11.30)
[2020-02-09 05:57] LABS: Albumin, Blood 2.6 g/dL (3.4-5.0); Anion Gap 5 mmol/L (6-16); BAND PERCENT MAN 1 % (0-8); BASOPHILS PERCENT MAN 0 % (0-2); Blood Urea Nitrogen 41 mg/dL (8-24); Bun/Creatinine Ratio 39.8 (12.0-20.0); CO2, Blood 29 mmol/L (21-32); Calcium, Blood 8.9 mg/dL (8.5-10.1); Chloride, Blood 100 mmol/L (98-108); Creatinine, Blood 1.03 mg/dL (0.40-1.00); EOSINOPHILS PERCENT MAN 0 % (0-6); Glomerular Filtration Rate 57 (60-); Glucose, Blood 134 mg/dL (70-99); LYMPHOCYTES ABSOLUTE MAN 1.19 K/mm3 (0.84-5.20); LYMPHOCYTES PERCENT MAN 6 % (21-46); METAMYELOCYTE ABSOLUTE MAN 0.39 K/mm3 (0.00-0.00); METAMYELOCYTE PERCENT MAN 2 % (0-0); MONOCYTES ABSOLUTE MAN 0.79 K/mm3 (0.16-1.47); MONOCYTES PERCENT MAN 4 % (4-13); NEUTROPHILS ABSOLUTE MAN 17.46 K/mm3 (1.96-9.15); Potassium, Blood 4.5 mmol/L (3.5-5.5); SEG NEUTROPHILS PERCENT MAN 87 % (41-73); Sodium, Blood 134 mmol/L (136-145); TOTAL CELLS COUNTED 100
[2020-02-09] MEDS ORDERED: ALBU2.5V5 INH (10:55)
[2020-02-09] MEDS ORDERED: IPRAT-ALBUT 0.5-3 ML INH (10:56)
[2020-02-09] MEDS ORDERED: Prednisone10 MG PO (10:58)
[2020-02-09] MEDS ORDERED: FLUT1DIS5 INH (11:17)
--- NOTE | 2020-02-09 12:30 | NUR ---
DISCHARGE PT DISCHARGED VIA WC. PT RECEIVED BREATHING TX PRIOR. IV DCD. PT INSTRUCTED TO FU TO PCP AND APPOINTMENTS. PT MEDICATIONS SENT TO PHARMACY AND PT EDUCATED ABOUT NEW MEDICATIONS AND ASTHMA EXACERBATIONS.
== END 2020-02-09 12:19 | disposition home or self-care (01) | DRG 203 ==
LOC: ER 16:22 → MEDS 21:46
PROVIDERS: Emergency Medicine; Family Medicine; ADMIT Hospitalist
DX: J45.901 Unspecified asthma with (acute) exacerbation (principal); F32.9 Major depressive disorder, single episode, unspecified; I10 Essential (primary) hypertension; M54.9 Dorsalgia, unspecified; G89.29 Other chronic pain; Z20.828 Contact with and (suspected) exposure to other viral communicable diseases; Z87.891 Personal history of nicotine dependence; F41.9 Anxiety disorder, unspecified
CPT/HCPCS: 0241U; 36415; 71045; 80053; 80069; 84145; 85025; 93005; 93010; 94640; 94644; 94760; 96372; 96374; 96376; 99285-25; A9270; A9270-GY; G0378; J1650; J2920; J2930; J7030

== ENCOUNTER → 2020-03-03 | Outpatient (CLI) | payer MEDICARE, OTHER ==
[~2020-03-03] MED LIST changes: +ALBU2.5V5 INH; +AMOCLA875 PO; +Amitriptyline H25 MG PO; +CHLO25B PO; +CLON1 PO; +DILT60ER PO; +EC-NAPROXEN375 MG PO; +ESCI20 PO; +ESTRADIOL1 M1 PO; +FERROUS SULFAT325 M3 PO; +FLUT1DIS5 INH; +FUROSEMIDE20 MG PO; +HYDCHL25 PO; +IPRAT-ALBUT 0.5-3 ML; +IPRAT-ALBUT 0.5-3 ML INH; +KLOR-CON 1010 ME1 PO; +LIOT5 PO; +MELO7.5 PO; +MIRALAX17 GM PO; +Methocarbamol750 MG PO; +NYAMYC15 G1 TOP; +OMEP20ER PO; +Prednisone10 MG PO; +Qualaquin324 MG PO; +SYMBICORT 16010.2 GM INH
== END | disposition home or self-care (01) ==
LOC: LAB SHORT 17:41
DX: L08.9 Local infection of the skin and subcutaneous tissue, unspecified (principal)
CPT/HCPCS: 87070; 87075; 87077; 87147; 87186; 87205

== ENCOUNTER 2020-04-02 09:48 | Inpatient (IN) | payer MEDICARE, OTHER ==
[~2020-04-02] VITALS: Ht 162.6 cm; Wt 80.1 kg
[~2020-04-02 09:48] MED LIST changes: -FERROUS SULFAT325 M3 PO; -FUROSEMIDE20 MG PO; -HYDCHL25 PO; -IPRAT-ALBUT 0.5-3 ML; -KLOR-CON 1010 ME1 PO; -LIOT5 PO; -MELO7.5 PO; -MIRALAX17 GM PO; -Methocarbamol750 MG PO; -OMEP20ER PO; -SYMBICORT 16010.2 GM INH
[2020-04-02 12:08] LABS: BASOPHILS ABSOLUTE AUTO 0.06 K/mm3 (0.00-0.23); BASOPHILS PERCENT AUTO 1 % (0-2); EOSINOPHILS ABSOLUTE AUTO 0.19 K/mm3 (0.00-0.68); EOSINOPHILS PERCENT AUTO 2 % (0-6); Hematocrit 33.5 % (33.0-51.0); Hemoglobin 11.4 g/dL (11.5-16.0); IMMATURE GRAN ABSOLUTE AUTO 0.04 K/mm3 (0.00-0.10); IMMATURE GRAN PERCENT AUTO 0 % (0-1); LYMPHOCYTES ABSOLUTE AUTO 1.87 K/mm3 (0.84-5.20); LYMPHOCYTES PERCENT AUTO 16 % (21-46); MONOCYTES ABSOLUTE AUTO 0.77 K/mm3 (0.16-1.47); MONOCYTES PERCENT AUTO 7 % (4-13); Mean Corpuscular HGB 31.1 pg (26.0-34.0); Mean Corpuscular Volume 92 fL (80-100); Mean Platelet Volume 8.8 fL (9.1-12.4); NEUTROPHILS ABSOLUTE AUTO 8.95 K/mm3 (1.96-9.15); NEUTROPHILS PERCENT AUTO 75 % (41-73); Platelet Count 298 K/mm3 (150-400); RDW Coefficient Variation 14.7 % (11.7-14.2); RDW Standard Deviation 49.3 fL (35.1-46.3); Red Blood Cell Count 3.66 M/mm3 (3.80-5.20); White Blood Cell Count 11.88 K/mm3 (4.00-11.30)
[2020-04-02 12:35] LABS: Albumin, Blood 3.2 g/dL (3.4-5.0); Bilirubin, Total 0.5 mg/dL (0.1-1.0); Bun/Creatinine Ratio 16.4 (12.0-20.0); Calcium, Blood 8.5 mg/dL (8.5-10.1); Creatinine, Blood 1.71 mg/dL (0.40-1.00); Globulin, Blood 3.2 g/dL (2.2-4.0); Magnesium, Blood 1.8 mg/dL (1.6-2.4); Potassium, Blood 3.5 mmol/L (3.5-5.5); Thyroid Stimulating Hormone 1.07 uIU/mL (0.360-4.800); Total Protein, Blood 6.4 g/dL (6.4-8.2)
[2020-04-02 13:38] LABS: Source, Urine Catheter
[2020-04-02 13:42] LABS: Appearance, Urine Hazy (Clear); Bilirubin, Urine Neg (Neg); Blood, Urine Neg (Neg); Color, Urine Yellow (P-Yellow); Glucose Qualitative, Urine Neg (Neg); Ketones, Urine 1+ (Neg); Leukocyte Esterase, Urine 1+ (Neg); Nitrite, Urine Neg (Neg); Protein, Urine 1+ (Neg); Specific Gravity, Urine 1.025 (1.003-1.022); Urobilinogen, Urine NORM (Normal)
[2020-04-02 13:56] LABS: Bacteria Rare /hpf; Red Blood Cells, Urine 0-2 /hpf (0-2); Squamous Epithelial Cells Mod /hpf (Few)
[2020-04-02 14:02] LABS: U Cannabinoids Screen DETECTED
[2020-04-02 14:03] LABS: U Amphetamine Screen Not Detected; U Barbituate Screen Not Detected; U Benzodiazapine Screen Not Detected; U Cocaine Screen Not Detected; U Methadone Screen Not Detected; U Methamphetamine Screen Not Detected; U Opiates Screen DETECTED; U Oxycodone Screen Not Detected; U Phencyclidine Screen Not Detected; U Propoxyphene Screen Not Detected
[2020-04-02 14:04] LABS: U Buprenorphine Screen DETECTED
[2020-04-02] MEDS ORDERED: KLOR-CON 1010 ME1 PO (14:37)
[2020-04-02] MEDS ORDERED: MELO7.5 PO (14:37)
[2020-04-02] MEDS ORDERED: FUROSEMIDE20 MG PO (14:37)
[2020-04-02] MEDS ORDERED: CLON.1 PO (14:38)
[2020-04-02] MEDS ORDERED: Methocarbamol750 MG PO (14:38)
[2020-04-02] MEDS ORDERED: FERROUS SULFAT325 M3 PO (14:38)
[2020-04-02] MEDS ORDERED: SYMBICORT 16010.2 GM INH (14:40)
--- NOTE | 2020-04-02 19:20 | NUR ---
SHIFT SUMMARY: PATIENT ADMIT FROM ED THIS SHIFT. PT A&O; CALM AND COOPERATIVE WITH CARE. CHRONIC PAIN; MEDICATED FOR PAIN IN ED. PT STATES UNABLE TO MOVE LEGS; AWAITING IMAGING RESULTS. IV FLUIDS CONTINUING. REPORT GIVEN TO ONCOMING RN.
[2020-04-03 05:02] LABS: Hemoglobin 11.1 g/dL (11.5-16.0); Mean Corpuscular HGB 29.8 pg (26.0-34.0); Mean Corpuscular HGB Conc 32.6 g/dL (31.5-36.5); Mean Corpuscular Volume 91 fL (80-100); Mean Platelet Volume 8.6 fL (9.1-12.4); Platelet Count 272 K/mm3 (150-400); RDW Coefficient Variation 14.7 % (11.7-14.2); RDW Standard Deviation 48.9 fL (35.1-46.3); Red Blood Cell Count 3.72 M/mm3 (3.80-5.20); White Blood Cell Count 7.75 K/mm3 (4.00-11.30)
[2020-04-03 05:20] LABS: Albumin, Blood 2.7 g/dL (3.4-5.0); Anion Gap 8 mmol/L (6-16); Blood Urea Nitrogen 19 mg/dL (8-24); Bun/Creatinine Ratio 20.1 (12.0-20.0); CO2, Blood 25 mmol/L (21-32); Calcium, Blood 8.3 mg/dL (8.5-10.1); Chloride, Blood 105 mmol/L (98-108); Creatinine, Blood 0.94 mg/dL (0.40-1.00); Glomerular Filtration Rate >60 (60-); Glucose, Blood 180 mg/dL (70-99); Phosphorus, Blood 2.9 mg/dL (2.5-4.9); Potassium, Blood 4.1 mmol/L (3.5-5.5); Sodium, Blood 138 mmol/L (136-145)
[2020-04-03] MEDS ORDERED: CLON1 PO (08:31)
--- NOTE | 2020-04-03 09:06 | NUR ---
ANXIETY Patient report anxiety this morning after phone calls from her brother who lives in [place] and her estranged sister who she has not spoken to for over 5 years. Patient is tearful. Also communicates to this RN that anxiety has been increasingly overwhelming d/t her declining health and her grandson being sent back to his parents who uses drugs. Patient requesting home medication Klonipin 1 mg Q12P. Received V.O. from Dr. Benjamin to resume home med. Order updated.
--- NOTE | 2020-04-03 12:29 | NUR ---
SUTURES REMOVED RN AND STUDENT NURSE REMOVED SUTURES FROM RIGHT ELBOW LACERATION FROM 03/26/20. PT WAS DUE TO HAVE THESE SUTURES REMOVED AT [facility] 2-3 DAYS AGO. SUTURES WERE REMOVED FULLY. PATIENT DID NOT HAVE ANY COMPLAINTS OF PAIN DURING THE PROCEDURE.
--- NOTE | 2020-04-03 16:22 | NUR ---
SUTURES TO R ELBOW PATIENT HAD 3 SUTURES PLACED AT [facility] 03/26 FOR A LACERATION SUSTAINED FROM FALL AT HOME. PER OFFICE PERSONNEL AT URGENT CARE, PATIENT WAS SUPPOSED TO RETURN FOR SUTURE REMOVAL 5 DAYS LATER. RECEIVED T.O. TO REMOVE SUTURES FROM DR. RICHARDS.
--- NOTE | 2020-04-03 16:24 | NUR ---
COUGH PATIENT C/O ABDOMINAL PAIN R/T COUGH. RECEIVED T.O. FROM DR. RICHARDS FOR 100 MG TESSALON PEARLS Q6H PRN FOR COUGH. EMAR UPDATED.
--- NOTE | 2020-04-03 19:28 | NUR ---
Shift Summary A/Ox3, pleasant and cooperative with care. Make needs known. NS @ 100 continuous. Neuro checks remain unchanged. Worked with PT. Occassional productive cough with moderate thick opaque/greenish sputum. Patient reports 8/10 abdominal pain with cough. Also reports positive guaiac last Friday from stool sample sent into PCP. Discussed with Dr. Benjamin and received T.O. ok to give evening Xarelto, Pass Christian 5/325 Q6 PRN for cough/pain, and cx/sensitivity for sputum. Patient states approximately 3 weeks ago, she was prescribed Pass Christian for her "leg pain" from her PCP and that she still has a few left at home. Sutures to R elbow removed. Report given to night RN.
--- NOTE | 2020-04-04 05:38 | NUR ---
SHIFT SUMMARY: VSS. AFEB. AAOX4. ABLE TO COMMUNICATE NEEDS. MOD ASSIST OF 1 W/BED MOBILITY TONIGHT. B FOAM RUBBER MIXER EQUAL AND MODERATELY STONG. B PUSHES/PULLS WEAK. PT DENIES N/T. PERRL. NO FACIAL DROOPING. CONTINENT OF BLADDER. REPORTS CONSTIPATION, DRANK TEA FOR CONSTIPATION AT HS W/ NO RESULTS. C/O LOWER ABD PAIN, WORSE W/ COUGH TONIGHT. IV FLUIDS INFUSING CONTINUOUSLY. NO ACUTE CHANGES. WCTM.
--- NOTE | 2020-04-04 18:20 | NUR ---
Shift Summary Medicated for R knee pain x 1 with good effect. Patient reports spasms in lower extremities R>L, received V.O. from Dr. Benjamin to change indication of Klonipin to "anxiety and muscle spasms" from Dr. Benjamin. Q8 neuro checks remain unchanged. Patient had a good sized bowel movement this evening (see I&O). Minimal nonproductive cough today. NS @ 100. No acute changes. WCTM.
--- NOTE | 2020-04-05 04:37 | NUR ---
SHIFT SUMMARY ADMITTED FOR CHIARA. FULL CODE. PLAN IS FOR PLACEMENT, PT PREFERS [facility]ILITY IF POSSIBLE. PLAN IS FOR OUTPT NEURO EVAL. SHE IS STILL WEAK IN BLE. SHE IS BEDRIDDEN. NS IS INFUSING ORDERED. NO NEW CONCERNS THIS SHIFT.
--- NOTE | 2020-04-05 17:40 | NUR ---
ALERT. ORIENTED. EQUAL WATER TRUCK DRIVER. STRONG EQUAL DORSIFLEXION AND PLANTAR FLEXION. ABLE TO LIFT LEGS OFF BED ABOUT 2-3 INCHES. VERY SLIGHT RT ARM DRIFT. IV S.L'D. UNLABORED RESPIRATIONS. GIVEN ; I.S. AND "PICKLE" AND INSTRUCTED ON USE. GIVEN LACTULOSE FOR "CONSTIPATION." ONE PERSON ASSIST FROM BED TO CHAIR WITH CUES AND PIVOTING. NO ACUTE CHANGES. WCTM
--- NOTE | 2020-04-06 04:24 | NUR ---
SHIFT SUMMARY ADMITTED FOR CHIARA/WEAKNESS - BLE. FULL CODE. PLAN IS FOR PLACEMENT. [facility] IN [place] AND NEURO EVAL AN OUTPT IF POSSIBLE. THE PT WAS ABLE TO LIFT HER LEGS MUCH OF SHIFT; HOWEVER, SHE HAD WHAT APPEARED TO BE A PANIC ATTACK AT THE END AND STATED SHE COULD NO LONGER MOVE HER LEGS. SHE DID FALL BACK ASLEEP FOLLOWING THIS EVENT. THERE ARE NO OTHER CONCERNS
--- NOTE | 2020-04-06 18:27 | NUR ---
ALERT. ORIENTED.EQUAL AND STRONG DORSIFLEXION AND PLANTAR FLEXION. PATIENT ABLE TO MOVE HER LEGS TO EDGE OF BED IN PREPARATION OF GETTING UP. OOB MULTIPLE TIMES TODAY TO CHAIR AND TO BATHROOM. HAIR PLACED IN BRAID AFTER MASSIVE TANGLES COMBED OUT. SCAB TO RT ELBOW AND LEFT MEDIAL ANKLE APPEAR TO BE HEALING WELL WITH NO REDNESS OBSERVED. COOPERATIVE. SOME EXERTIONAL DYSPNEA. AWARE AWAITING FOR BED TO OPEN UP IN [place].IV PATENT WITHOUT ANY BRUISING OR SWELLING. WCTM
--- NOTE | 2020-04-07 05:01 | NUR ---
SHIFT SUMMARY ADMITTED FOR CHIARA, BLE WEAKNESS. FULL CODE. PLAN IS FOR DC TO [facility] VS. SNF, ALSO OUTPT NEURO ELECTRODIAGNOSTIC EVAL IN [place]. DR NICE IS CONSULT. SHE IS WORKING WITH PHYSICAL & OCCUPATIONAL THERAPY. YESTERDAY SHE WAS UP IN CHAIR MUCH OF THE DAY AND AMBULATED TO BATHROOM W/FWW. SHE IS NOT MOTIVATED (OR FEELS THAT SHE CANNOT MOVE) WHEN HAVING WHAT APPEARS TO BE ANXIETY ATTACKS. NEURO CHECKS Q 8 HRS.
[2020-04-07 14:53] LABS: Creatine Kinase MB 2.2 ng/mL (0.0-3.6); Creatine Kinase MB Index 0.6 (0.0-4.0)
--- NOTE | 2020-04-07 18:41 | NUR ---
SHIFT SUMMARY PT A/O X4; PLEASANT AND COOPERATIVE WITH CARE. ADMITTED FOR CHIARA AND BLE WEAKNESS. PT STATES THAT PREVIOUSLY SHE WAS SO WEAK THAT SHE WAS UNABLE TO WALK; SHE IS NOW ABLE TO GET UP WITH A STAND BY ASSIST TO THE BATHROOM W/FWW. SHE IS TO FOLLOW UP WITH A NEUROLOGIST IN [place] NEXT WEEK. MEDICATED X1 FOR ANXIETY THIS SHIFT. VSS; WILL REPORT TO NOC RN.
[2020-04-08 05:05] LABS: BASOPHILS ABSOLUTE AUTO 0.02 K/mm3 (0.00-0.23); BASOPHILS PERCENT AUTO 0 % (0-2); EOSINOPHILS ABSOLUTE AUTO 0.03 K/mm3 (0.00-0.68); EOSINOPHILS PERCENT AUTO 0 % (0-6); Hematocrit 28.4 % (33.0-51.0); Hemoglobin 9.7 g/dL (11.5-16.0); IMMATURE GRAN ABSOLUTE AUTO 0.11 K/mm3 (0.00-0.10); IMMATURE GRAN PERCENT AUTO 1 % (0-1); LYMPHOCYTES ABSOLUTE AUTO 2.62 K/mm3 (0.84-5.20); LYMPHOCYTES PERCENT AUTO 25 % (21-46); MONOCYTES ABSOLUTE AUTO 0.67 K/mm3 (0.16-1.47); MONOCYTES PERCENT AUTO 7 % (4-13); Mean Corpuscular HGB 30.5 pg (26.0-34.0); Mean Corpuscular HGB Conc 34.2 g/dL (31.5-36.5); Mean Corpuscular Volume 89 fL (80-100); Mean Platelet Volume 8.4 fL (9.1-12.4); NEUTROPHILS ABSOLUTE AUTO 6.85 K/mm3 (1.96-9.15); NEUTROPHILS PERCENT AUTO 67 % (41-73); NRBC ABSOLUTE 0.03 K/mm3 (0.00-0.02); NRBC Auto 0.3 /100 WBC (0.0-0.2); Platelet Count 287 K/mm3 (150-400); RDW Coefficient Variation 14.6 % (11.7-14.2); RDW Standard Deviation 47.4 fL (35.1-46.3); Red Blood Cell Count 3.18 M/mm3 (3.80-5.20)
[2020-04-08 05:37] LABS: Alanine Aminotransfer (ALT/SGP 41 U/L (12-78); Albumin, Blood 2.5 g/dL (3.4-5.0); Albumin/Globulin Ratio 0.9 (0.8-1.8); Alk Phos 55 U/L (50-136); Anion Gap 5 mmol/L (6-16); Aspartate Aminotrans (AST/SGOT 20 U/L (12-37); Bilirubin, Total 0.4 mg/dL (0.1-1.0); Blood Urea Nitrogen 18 mg/dL (8-24); Bun/Creatinine Ratio 25.2 (12.0-20.0); CO2, Blood 29 mmol/L (21-32); Calcium, Blood 8.3 mg/dL (8.5-10.1); Chloride, Blood 103 mmol/L (98-108); Creatinine, Blood 0.72 mg/dL (0.40-1.00); Globulin, Blood 2.9 g/dL (2.2-4.0); Glomerular Filtration Rate >60 (60-); Glucose, Blood 102 mg/dL (70-99); Potassium, Blood 3.5 mmol/L (3.5-5.5); Sodium, Blood 137 mmol/L (136-145); Total Protein, Blood 5.4 g/dL (6.4-8.2)
--- NOTE | 2020-04-08 06:18 | NUR ---
SHIFT SUMMARY- PT. A&O, PLEASANT, AND COOPERATIVE WITH CARE. C/O PAIN TO BLE AND ABD, MEDICATED 2X PER EMAR WITH GOOD EFFECT. PT. ASLEEP T/O THE SHIFT, NO APPARENT DISTRESS NOTED. DENIED ANY OTHER NEEDS DURING THE NIGHT, VSS. CALL LIGHT WITHIN REACH AND SIDE RAILS UPX2. WILL CONT TO MONITOR.
[2020-04-08 14:56] LABS: Percent Saturation 11.3 % (15.0-50.0)
--- NOTE | 2020-04-08 18:44 | NUR ---
SHIFT SUMMARY NO ACUTE CHANGES THIS SHIFT. PT REMAINS A/O X4 AND GETTING UP WITH A 1 ASSIST TO THE BATHROOM. C/O OF ABD PAIN THIS AM THAT HAS SINCE RESOLVED. HAD A HEAD MRI THIS AFTERNOON. MEDICATED X1 FOR ANXIETY WITH GOOD EFFECT. VSS; WILL REPORT TO PABLO RN.
--- NOTE | 2020-04-09 05:46 | NUR ---
SHIFT SUMMARY- NO ACUTE EVENTS OVERNIGHT. PT. SLEPT MOST OF THE SHIFT, NO APPARENT DISTRESS NOTED. C/O ABD AND LEG PAIN DURING THE NIGHT, MEDICATED PER EMAR WITH GOOD EFFECT. PT. UP TO THE BATHROOM WITH 1 ASSIST AND WALKER, TOLERATED WELL. VSS. CALL LIGHT WITHIN REACH AND SIDE RAILS UPX2. WILL CONT TO MONITOR.
[2020-04-09 05:50] LABS: Hematocrit 28.3 % (33.0-51.0); Hemoglobin 9.5 g/dL (11.5-16.0); Mean Corpuscular HGB 30.2 pg (26.0-34.0); Mean Corpuscular HGB Conc 33.6 g/dL (31.5-36.5); Mean Corpuscular Volume 90 fL (80-100); Mean Platelet Volume 8.3 fL (9.1-12.4); Platelet Count 284 K/mm3 (150-400); RDW Coefficient Variation 14.3 % (11.7-14.2); Red Blood Cell Count 3.15 M/mm3 (3.80-5.20); White Blood Cell Count 12.55 K/mm3 (4.00-11.30)
[2020-04-09 06:15] LABS: Anion Gap 5 mmol/L (6-16); Blood Urea Nitrogen 20 mg/dL (8-24); CO2, Blood 29 mmol/L (21-32); Calcium, Blood 8.2 mg/dL (8.5-10.1); Chloride, Blood 102 mmol/L (98-108); Creatinine, Blood 0.84 mg/dL (0.40-1.00); Glomerular Filtration Rate >60 (60-); Glucose, Blood 91 mg/dL (70-99); Lactate Dehydrogenase (Ld),Bld 348 U/L (100-240); Potassium, Blood 3.9 mmol/L (3.5-5.5); Sodium, Blood 136 mmol/L (136-145)
--- NOTE | 2020-04-09 07:57 | NUR ---
PT ROOM WAS LEFT WITH 6 COFFEE CUPS ON TABLE, LIDS OFF MEAL TRAYS FROM DINNER ON 04/08.
--- NOTE | 2020-04-09 19:12 | NUR ---
SHIFT SUMMARY PT AXO, PLEASANT AND COOPERATIVE WITH CARE THOUGH ANXIOUS AND WEEPING AT TIMES. PT MEDICATED FOR PAIN AND ANXIETY PER EMAR. PT COMPLAINED OF BED, NEW BED IN ROOM AT THIS TIME. PT RESTING COMFORTABLY AT THIS TIME. IV LEAKED AND DC'D. CHARGE NURSE AND ANOTHER NURSE ATTEMPTED TO START NEW IV, UNSUCCESSFUL. AWAITING PLACEMENT WITH ULTRASOUND AT THIS TIME. PT WORKING ON DRINKING CONTRAST FOR CT, TOLERATING WELL. VSS. PT AMBULATING WITH 1 ASSIST AND FWW, REFUSING GB. BED IN LOW POSITION, CALL LIGHT WITHIN REACH.
--- NOTE | 2020-04-10 04:53 | NUR ---
SHIFT SUMMARY- PT. HAD CT SCAN OF ABD/PELVIS DONE LAST NIGHT. C/O HEADACHE UPON RETURN, MEDICATED PER EMAR WITH GOOD EFFECT. PT. APPEARED TO HAVE RESTED COMFORTABLY DURING THE REST OF THE NIGHT, NO APPARENT DISTRESS NOTED. AMBULATING TO THE BATHROOM WITH 1 ASSIST AND WALKER W/O DIFFICULTY, TOLERATING WELL. DENIED ANY OTHER NEEDS T/O THE SHIFT. CALL LIGHT WITHIN REACH AND SIDE RAILS UPX2. WILL CONT TO MONITOR.
[2020-04-10 05:11] LABS: BASOPHILS ABSOLUTE AUTO 0.01 K/mm3 (0.00-0.23); BASOPHILS PERCENT AUTO 0 % (0-2); EOSINOPHILS ABSOLUTE AUTO 0.01 K/mm3 (0.00-0.68); EOSINOPHILS PERCENT AUTO 0 % (0-6); Hematocrit 29.1 % (33.0-51.0); Hemoglobin 9.8 g/dL (11.5-16.0); IMMATURE GRAN ABSOLUTE AUTO 0.28 K/mm3 (0.00-0.10); IMMATURE GRAN PERCENT AUTO 2 % (0-1); LYMPHOCYTES ABSOLUTE AUTO 2.36 K/mm3 (0.84-5.20); LYMPHOCYTES PERCENT AUTO 17 % (21-46); MONOCYTES ABSOLUTE AUTO 0.94 K/mm3 (0.16-1.47); MONOCYTES PERCENT AUTO 7 % (4-13); Mean Corpuscular HGB 30.2 pg (26.0-34.0); Mean Corpuscular HGB Conc 33.7 g/dL (31.5-36.5); Mean Corpuscular Volume 90 fL (80-100); Mean Platelet Volume 8.6 fL (9.1-12.4); NEUTROPHILS ABSOLUTE AUTO 10.21 K/mm3 (1.96-9.15); NEUTROPHILS PERCENT AUTO 74 % (41-73); NRBC ABSOLUTE 0.03 K/mm3 (0.00-0.02); NRBC Auto 0.2 /100 WBC (0.0-0.2); Platelet Count 299 K/mm3 (150-400); RDW Coefficient Variation 14.5 % (11.7-14.2); Red Blood Cell Count 3.24 M/mm3 (3.80-5.20); White Blood Cell Count 13.81 K/mm3 (4.00-11.30)
[2020-04-10 05:42] LABS: Alanine Aminotransfer (ALT/SGP 49 U/L (12-78); Albumin, Blood 2.7 g/dL (3.4-5.0); Albumin/Globulin Ratio 0.9 (0.8-1.8); Alk Phos 58 U/L (50-136); Anion Gap 7 mmol/L (6-16); Aspartate Aminotrans (AST/SGOT 15 U/L (12-37); Bilirubin, Total 0.4 mg/dL (0.1-1.0); Blood Urea Nitrogen 23 mg/dL (8-24); Bun/Creatinine Ratio 30.2 (12.0-20.0); CO2, Blood 26 mmol/L (21-32); Calcium, Blood 8.3 mg/dL (8.5-10.1); Chloride, Blood 102 mmol/L (98-108); Creatinine, Blood 0.76 mg/dL (0.40-1.00); Globulin, Blood 2.9 g/dL (2.2-4.0); Glomerular Filtration Rate >60 (60-); Glucose, Blood 101 mg/dL (70-99); Potassium, Blood 3.8 mmol/L (3.5-5.5); Sodium, Blood 135 mmol/L (136-145); Total Protein, Blood 5.6 g/dL (6.4-8.2); Triiodothyronine, Free 1.43 pg/mL (2.18-3.98)
--- NOTE | 2020-04-10 10:57 | NUR ---
working with lab and pharmacy to evaluate, gave shot, called lab for 30 min draw, pt a+o and cooporative
[2020-04-10 15:07] LABS: ANA DIRECT Negative (Negative); ANTI-DNA (DS) AB QN 4 IU/mL (0-9); RNP ANTIBODIES <0.2 AI (0.0-0.9); SJOGREN'S ANTI-SS-A <0.2 AI (0.0-0.9); SJOGREN'S ANTI-SS-B <0.2 AI (0.0-0.9); SMITH ANTIBODIES <0.2 AI (0.0-0.9)
--- NOTE | 2020-04-10 18:31 | NUR ---
SUMMARY:started being confused, family kept asking her questions and she was unable to ansewer them which made her more anxious, since family has left she has been resting quietly, vss, even breathing, removed 02, states she is feeling better headache diminishing, call light in reach, rm air, saline locked, will continue to monitor and treat until share bsr with noc nurse and pt.
[2020-04-10 19:41] LABS: PCO2 Arterial 32.5 mmHg (35-45); PO2 Arterial 59.9 mmHg (80-100)
--- NOTE | 2020-04-10 21:44 | NUR ---
PHYSICIAN CORRESPONDENCE CONTINUALLY STATES "I DONT KNOW WHAT IS GOING ON", "IM ALL SHAKY". HAD ANXIETY ATTACK ON PREVIOUS SHIFT AND WAS GIVEN CLONAZEPAM WITH MINIMAL AFFECT. REMAINS HIGHLY ANXIOUS. NEURO EXAM PERFORMED AND WNL. STATES HAVING A HARD TIME BREATHING. RT IN TO EVALUATE; STATED BS COARSE T/O WITH CRACKLES AT BASES, RECOMMENDING CXR/BNP. NEW ORDERS FOR CXR AND ATIVAN PO.
--- NOTE | 2020-04-11 04:16 | NUR ---
SHIFT SUMMARY A/O, ABLE TO MAKE NEEDS KNOWN. COOPERATIVE WITH CARE. CALLS AND ANSWERS QUESTIONS APPROPRIATELY. NEURO EXAM WNL. EXTREMELY ANXIOUS AT BEGINNING OF SHIFT. APPEARED TO REST AFTER RECIEVING OT PRN ORDER FOR ATIVAN PER ON-CALL PHYSICIAN. SEE PREV RN NOTE. C/O PAIN/DISCOMFORT TO HEAD; MEDICATED PER MEAR. UP 1P ASSIST TO BATHROOM /c FWW. LUNG SOUNDS COARSE T/O /c CRACKLES TO BASES. PLACED ON 2L O2 VIA RT. CXR ORDERED PER ON-CALL PHYSICIAN. FOLLOWED BY RT. NO OTHER ACUTE CHANGES NOTED. BED REMAINS IN LOWEST POSITION. CALL LIGHT AND BELONGINGS WITHIN REACH. CONTINUE WITH CURRENT PLAN OF CARE. REPORT TO ONCOMING RN.
[2020-04-11 05:28] LABS: BASOPHILS ABSOLUTE AUTO 0.02 K/mm3 (0.00-0.23); BASOPHILS PERCENT AUTO 0 % (0-2); EOSINOPHILS ABSOLUTE AUTO 0.02 K/mm3 (0.00-0.68); EOSINOPHILS PERCENT AUTO 0 % (0-6); Hemoglobin 9.4 g/dL (11.5-16.0); IMMATURE GRAN PERCENT AUTO 4 % (0-1); LYMPHOCYTES ABSOLUTE AUTO 3.37 K/mm3 (0.84-5.20); LYMPHOCYTES PERCENT AUTO 23 % (21-46); MONOCYTES PERCENT AUTO 9 % (4-13); Mean Corpuscular HGB 29.8 pg (26.0-34.0); Mean Corpuscular HGB Conc 33.6 g/dL (31.5-36.5); Mean Corpuscular Volume 89 fL (80-100); Mean Platelet Volume 8.5 fL (9.1-12.4); NEUTROPHILS PERCENT AUTO 65 % (41-73); NRBC ABSOLUTE 0.08 K/mm3 (0.00-0.02); NRBC Auto 0.5 /100 WBC (0.0-0.2); Platelet Count 291 K/mm3 (150-400); RDW Coefficient Variation 14.6 % (11.7-14.2); RDW Standard Deviation 47.3 fL (35.1-46.3); Red Blood Cell Count 3.15 M/mm3 (3.80-5.20); White Blood Cell Count 15.01 K/mm3 (4.00-11.30)
[2020-04-11 06:11] LABS: Alanine Aminotransfer (ALT/SGP 39 U/L (12-78); Albumin, Blood 2.6 g/dL (3.4-5.0); Albumin/Globulin Ratio 0.9 (0.8-1.8); Alk Phos 50 U/L (50-136); Anion Gap 8 mmol/L (6-16); Aspartate Aminotrans (AST/SGOT 12 U/L (12-37); Bilirubin, Total 0.7 mg/dL (0.1-1.0); Blood Urea Nitrogen 18 mg/dL (8-24); Bun/Creatinine Ratio 23.3 (12.0-20.0); CO2, Blood 25 mmol/L (21-32); Calcium, Blood 8.1 mg/dL (8.5-10.1); Chloride, Blood 104 mmol/L (98-108); Creatinine, Blood 0.77 mg/dL (0.40-1.00); Globulin, Blood 2.8 g/dL (2.2-4.0); Glomerular Filtration Rate >60 (60-); Glucose, Blood 93 mg/dL (70-99); Potassium, Blood 3.5 mmol/L (3.5-5.5); Sodium, Blood 137 mmol/L (136-145); Total Protein, Blood 5.4 g/dL (6.4-8.2)
[2020-04-11] MEDS ORDERED: LIOT5 PO (11:44)
[2020-04-11] MEDS ORDERED: PRED20 PO (11:45)
[2020-04-11] MEDS ORDERED: OMEP20ER PO (11:45)
[2020-04-11] MEDS ORDERED: MIRALAX17 GM PO (11:45)
--- NOTE | 2020-04-11 12:12 | NUR ---
PATIENT BEING DISCHARGED HOME WITH HOME HEALTH. ALL QUESTIONS ANSWERED AND VERBALIZED UNDERSTANDING OF THE DISCHARGE ORDERS. NO CONCERNS AT THIS TIME. SPO2 WITHIN NORMAL LIMITS, WAS ON NL NC OF O2 OVERNIGHT, MD AWARE. NOW ON RA. NO RESPIRATORY COMPLAINTS AT THIS TIME. AWAITING FOR PICKUP.
[2020-05-29] MEDS ORDERED: HYDCHL25 PO (16:09)
[2020-05-29] MEDS ORDERED: IPRAT-ALBUT 0.5-3 ML (16:10)
== END 2020-04-11 12:42 | disposition home health service (06) | DRG 683 ==
LOC: ER 09:48 → MEDS 15:39
PROVIDERS: Emergency Medicine; Internal Medicine; ADMIT Internal Medicine
DX: N17.9 Acute kidney failure, unspecified (principal); J45.901 Unspecified asthma with (acute) exacerbation; G54.1 Lumbosacral plexus disorders; G90.9 Disorder of the autonomic nervous system, unspecified; F03.90 Unspecified dementia, unspecified severity, without behavioral disturbance, psychotic disturbance, mood disturbance, and anxiety; D64.9 Anemia, unspecified; F10.10 Alcohol abuse, uncomplicated; D72.829 Elevated white blood cell count, unspecified; F32.9 Major depressive disorder, single episode, unspecified; F41.9 Anxiety disorder, unspecified; I10 Essential (primary) hypertension; G89.29 Other chronic pain; M25.552 Pain in left hip; M25.551 Pain in right hip; M50.30 Other cervical disc degeneration, unspecified cervical region; Z91.81 History of falling; E66.9 Obesity, unspecified; Z87.891 Personal history of nicotine dependence; M43.12 Spondylolisthesis, cervical region
CPT/HCPCS: 36415; 36600; 70551; 71045; 72040; 72141; 72146; 72148; 73521; 74176; 74177; 80048; 80053; 80069; 80400; 81001; 82085; 82533; 82550; 82553; 82607; 82728; 82746; 82803; 83540; 83550; 83615; 83735; 84100; 84439; 84443; 84481; 85025; 85027; 85651; 86140; 86225; 86235; 87070; 87077; 87086; 87186; 87205; 93005; 93010; 93971; 94640; 94667; 94760; 94762; 96360; 96361; 97110; 97112; 97116; 97116-CQ; 97163; 97530; 99285-25; A9270; J0834; J1650; J2916; J2930; J7030; J7120; J7512; Q9967

== ENCOUNTER 2020-06-05 10:51 | Day surgery (SDC) | payer MEDICARE, OTHER ==
[~2020-06-05] VITALS: Ht 162.6 cm; Wt 82.0 kg
[~2020-06-05 10:51] MED LIST changes: +FERROUS SULFAT325 M3 PO; +FUROSEMIDE20 MG PO; +HYDCHL25 PO; +IPRAT-ALBUT 0.5-3 ML; +KLOR-CON 1010 ME1 PO; +LIOT5 PO; +MELO7.5 PO; +MIRALAX17 GM PO; +Methocarbamol750 MG PO; +OMEP20ER PO; +SYMBICORT 16010.2 GM INH
--- NOTE | 2020-06-05 12:26 | NUR ---
06/05/20 1226 DoronNydia Ehsan WHEN ASKED PT. IF SHE HAD ANY PAIN, PT. STATED "NO MORE THAN USUAL." PT. HAS CHRONIC BACK & LEG PAIN. ALSO PT. HAS ASTHMA. PT.'S LUNG SOUNDS ARE COARSE WITH SCATTERED SQUEAKS. PT. VERBALIZES A LITTLE SOB BUT STATES "IT'S MY ASTHMA, I'M USED TO IT. " PT. DID A NEBULIZER AT 0700 THIS AM AT HOME. PT. RECEIVING JOELLEO NEB PER DR. JANE ORDER PRIOR TO PROCEDURE.
== END 2020-06-05 13:55 | disposition home or self-care (01) ==
LOC: ORSCSDS 10:51
PROVIDERS: Student in an Organized Health Care Education/Training Program
PROC: 0DB48ZX Excision of Esophagogastric Junction, Via Natural or Artificial Opening Endoscopic, Diagnostic (ICD-10-PCS; principal; 2020-06-05 12:00)
PROC: 0DJD8ZZ Inspection of Lower Intestinal Tract, Via Natural or Artificial Opening Endoscopic (ICD-10-PCS; principal; 2020-06-05 12:00)
DX: K92.1 Melena (principal); R13.10 Dysphagia, unspecified; K21.9 Gastro-esophageal reflux disease without esophagitis; I10 Essential (primary) hypertension; G47.33 Obstructive sleep apnea (adult) (pediatric); Z79.899 Other long term (current) drug therapy
CPT/HCPCS: 88305; J2405; J2704; J7120

== ENCOUNTER → 2020-12-29 | Outpatient (CLI) | payer MEDICARE, OTHER ==
[2020-12-29 16:04] LABS: Creatinine, Urine Random 67.3 mg/dL (27.00-270.00); Protein, Urine Random 10.5 mg/dL (0.0-11.9); Protein/Creat Ratio, Ur Random 0.2
[2020-12-29 19:44] LABS: Appearance, Urine Clear (Clear); Bilirubin, Urine Neg (Neg); Blood, Urine Neg (Neg); Color, Urine Yellow (P-Yellow); Glucose Qualitative, Urine Neg (Neg); Ketones, Urine Neg (Neg); Leukocyte Esterase, Urine Neg (Neg); Nitrite, Urine Neg (Neg); Protein, Urine Neg (Neg); Specific Gravity, Urine 1.005 (1.003-1.022); Urobilinogen, Urine NORM (Normal)
== END | disposition home or self-care (01) ==
LOC: LAB SHORT 11:27 → LAB 11:27
PROVIDERS: Internal Medicine
DX: I12.9 Hypertensive chronic kidney disease with stage 1 through stage 4 chronic kidney disease, or unspecified chronic kidney disease (principal); N18.9 Chronic kidney disease, unspecified
CPT/HCPCS: 81003; 82570; 84156

== ENCOUNTER 2021-01-16 10:48 | Inpatient (IN) | payer MEDICARE, OTHER ==
[~2021-01-16] VITALS: Ht 162.6 cm; Wt 81.6 kg
[~2021-01-16 10:48] MED LIST changes: -ESCI20 PO; -OMEP20ER PO
[2021-01-16 11:29] LABS: BASOPHILS ABSOLUTE AUTO 0.03 K/mm3 (0.00-0.23); BASOPHILS PERCENT AUTO 0 % (0-2); EOSINOPHILS ABSOLUTE AUTO 0.03 K/mm3 (0.00-0.68); EOSINOPHILS PERCENT AUTO 0 % (0-6); Hematocrit 37.7 % (33.0-51.0); Hemoglobin 12.7 g/dL (11.5-16.0); IMMATURE GRAN ABSOLUTE AUTO 0.05 K/mm3 (0.00-0.10); IMMATURE GRAN PERCENT AUTO 0 % (0-1); LYMPHOCYTES ABSOLUTE AUTO 1.33 K/mm3 (0.84-5.20); LYMPHOCYTES PERCENT AUTO 11 % (21-46); MONOCYTES ABSOLUTE AUTO 0.43 K/mm3 (0.16-1.47); MONOCYTES PERCENT AUTO 4 % (4-13); Mean Corpuscular HGB 27.8 pg (26.0-34.0); Mean Corpuscular HGB Conc 33.7 g/dL (31.5-36.5); Mean Corpuscular Volume 83 fL (80-100); Mean Platelet Volume 8.3 fL (9.1-12.4); NEUTROPHILS ABSOLUTE AUTO 10.35 K/mm3 (1.96-9.15); NEUTROPHILS PERCENT AUTO 85 % (41-73); Platelet Count 203 K/mm3 (150-400); RDW Coefficient Variation 14.5 % (11.7-14.2); RDW Standard Deviation 41.9 fL (35.1-46.3); Red Blood Cell Count 4.57 M/mm3 (3.80-5.20); White Blood Cell Count 12.22 K/mm3 (4.00-11.30)
[2021-01-16 11:53] LABS: Ethanol (Alcohol), Blood, Med <3 mg/dL; Troponin I <0.015 ng/mL (0.000-0.040)
[2021-01-16 11:55] LABS: Alanine Aminotransfer (ALT/SGP 22 U/L (12-78); Albumin, Blood 2.8 g/dL (3.4-5.0); Albumin/Globulin Ratio 0.8 (0.8-1.8); Alk Phos 99 U/L (50-136); Anion Gap 10 mmol/L (6-16); Aspartate Aminotrans (AST/SGOT 16 U/L (12-37); Bilirubin, Total 0.6 mg/dL (0.1-1.0); Blood Urea Nitrogen 13 mg/dL (8-24); Bun/Creatinine Ratio 15.7 (12.0-20.0); CO2, Blood 25 mmol/L (21-32); Calcium, Blood 8.2 mg/dL (8.5-10.1); Chloride, Blood 102 mmol/L (98-108); Creatinine, Blood 0.83 mg/dL (0.40-1.00); Globulin, Blood 3.6 g/dL (2.2-4.0); Glomerular Filtration Rate >60 (60-); Glucose, Blood 115 mg/dL (70-99); Potassium, Blood 2.4 mmol/L (3.5-5.5); Sodium, Blood 137 mmol/L (136-145); Total Protein, Blood 6.4 g/dL (6.4-8.2)
[2021-01-16 12:21] LABS: Influenza A, PCR NEGATIVE (NEGATIVE); Influenza B, PCR NEGATIVE (NEGATIVE); Resp Syncytial Virus, PCR NEGATIVE (NEGATIVE); SARS-Cov-2 (COVID-19) PCR, MMC NEGATIVE (NEGATIVE)
[2021-01-17 03:57] LABS: Hematocrit 33.7 % (33.0-51.0); Hemoglobin 11.4 g/dL (11.5-16.0); Mean Corpuscular HGB 27.9 pg (26.0-34.0); Mean Corpuscular HGB Conc 33.8 g/dL (31.5-36.5); Mean Corpuscular Volume 83 fL (80-100); Mean Platelet Volume 8.5 fL (9.1-12.4); Platelet Count 188 K/mm3 (150-400); RDW Coefficient Variation 14.9 % (11.7-14.2); Red Blood Cell Count 4.08 M/mm3 (3.80-5.20); White Blood Cell Count 20.46 K/mm3 (4.00-11.30)
[2021-01-17 04:12] LABS: International Normalized Ratio 1.11; Prothrombin Time Results 11.6 Sec (9.7-11.5)
[2021-01-17 04:19] LABS: Albumin/Globulin Ratio 0.6 (0.8-1.8); Bilirubin, Total 1.1 mg/dL (0.1-1.0); Bun/Creatinine Ratio 10.9 (12.0-20.0); Calcium, Blood 7.1 mg/dL (8.5-10.1); Creatinine, Blood 1.28 mg/dL (0.40-1.00); Globulin, Blood 3.2 g/dL (2.2-4.0); Potassium, Blood 3.5 mmol/L (3.5-5.5); Total Protein, Blood 5.2 g/dL (6.4-8.2)
[2021-01-17 04:23] LABS: Magnesium, Blood 0.7 mg/dL (1.6-2.4)
[2021-01-17 05:37] LABS: BAND PERCENT MAN 34 % (0-8); BASOPHILS PERCENT MAN 0 % (0-2); EOSINOPHILS PERCENT MAN 0 % (0-6); LYMPHOCYTES PERCENT MAN 2 % (21-46); MONOCYTES ABSOLUTE MAN 0.61 K/mm3 (0.16-1.47); MONOCYTES PERCENT MAN 3 % (4-13); MYELOCYTE PERCENT MAN 1 % (0-0); NEUTROPHILS ABSOLUTE MAN 19.23 K/mm3 (1.96-9.15); SEG NEUTROPHILS PERCENT MAN 60 % (41-73); TOTAL CELLS COUNTED 100
--- NOTE | 2021-01-17 06:23 | NUR ---
SHIFT SUMMARY ASSUMED CARE OF PT AT 1900. PT IS A/OX4 BUT IS VERY PAINFUL AND SOMULENT AT TIMES. HEART SOUNDS REGULAR, LUNG SOUNDS DIMINISHED AT THE BASES. PT IS ON 2L NC DUE TO DESATURATION WITH PAIN MEDICATION. PT WAS GIVEN 50MCG OF FENTYAL AND DESATURATED TO 85%. PT WAS GIVEN 25MCG 4 HOURS LATER WITH NO RELEIF. HOSPITALIST WAS NOTIFIED AND ORDERED ROXICODONE FOR [facility] RELEIF. PT WAS INC/CON TO BEDPAN. PT R WRIST IS VERY SWOLLEN AND PAINFUL TO TOUCH. PT GOANS IN PAIN. WOUND WAS CLEANSED AND DRESSED. PT ALSO HAS A SCRAPE ON HER L MCCORD, LEFT OPEN TO AIR. PT HAD A TEMP OF 100.8 BUT IS NOW AFEBRILE. PT CALLED HER AFTER ADMISSION TO UPDATE HIM. CALL LIGHT IN REACH, BED IN LOWEST POSITION.
--- NOTE | 2021-01-17 11:01 | NUR ---
MD WANTS TO LEAVE WOUND OPEN TO ASSSESS FREQUENTLY FOR CHANGE IN COLOR. WILL REPORT ANY SIGNIFICANT CHANGES TO MD.
[2021-01-17 14:31] LABS: Bun/Creatinine Ratio 13.1 (12.0-20.0); Creatinine, Blood 1.22 mg/dL (0.40-1.00); Potassium, Blood 3.7 mmol/L (3.5-5.5)
--- NOTE | 2021-01-17 15:24 | NUR ---
PT IS RESTING COMFORTABLY. PRN OXYCODONE, TYLENOL AND TRAMADOL GIVEN. PT WAKES UP WHEN IN ROOM, BUT IS SLEEPING IN BETWEEN CARES. RIGHT ARM STILL RED AND DOES NOT APPEAR TO HAVE EXTENDED PAST THE LINE DRAWN THIS AM. PT REPORTED LESS PAIN THIS AFTERNOON AFTER PRN MEDS. IV ABX CONTINUED PER ORDERS WELL CONTINUOUS NS RUNNING 150ML/HR. IN AM PT WAS IN SEVERE PAIN WITH PRN FENTYL AND OXYCODONE ALTERNATING, MORE COMFORTABLE THIS EVENING.
--- NOTE | 2021-01-17 16:46 | NUR ---
SHIFT NOTE Pt is a&0 3-4,forgetful at times. notices she is more confused than her normal. IV abx (vanco & zosyn) continued per orders. IV fluids running 150ml/hr. Wound on right wrist, photo taken and placed in chart. Reddness up arm, marked on arm. Pt has significant pain in right arm, decreased some as the day progressed. PRN meds given: oxycodone Q6, tamdol x1 and fentynl was given in AM x2. BP was soft in AM, but improved as the day progressed. Pt is using the bed gray to urinate due to pain. Pt does get shakey at times and reports feeling stiff all over. Pt is on 1-2L oxygen today. Lovenox given for anticoag. Contact precaution maintained for MRSA in wound.
--- NOTE | 2021-01-17 19:11 | NUR ---
Pt complained of increased pain in evening. prn oxycodone given with no effect, MD notified and IV fentynl added back into prn orders.
--- NOTE | 2021-01-17 21:54 | NUR ---
ASSUMED CARE OF PATIENT AT APPROXIMATELY 1900 FROM MARGE ESPARZA. PATIENT ALERT AND ORIENTED TO SELF, LOCATION, AND EVENT. PATIENT REPORTS PAIN IN RIGHT ARM/WRIST FROM CELLULITIS AT A 9/10 WITH MOST INTERVENTIONS; PATIENT CALLING OUT INTO HALLWAY; REPORTS SHE CANNOT LIFT HER OWN ARM AND YELLS OUT WHEN EITHER ARM IS MOVED. PATIENT DENIES NAUSEA OR DIZZINESS. ST ON TELE; OXYGEN SATURATION ABOVE 90% ON ROOM AIR. PG FAITH INFUSING IVF PER ORER. PIV S/L. Q2H TURNS. USES BEDPAN PER REPORT.
[2021-01-18 05:01] LABS: Bicarbonate Venous 16.7 mmol/L (24.0-30.0); PO2 Venous 40.7 mmHg (38-42); pH Blood Venous 7.24 (7.34-7.37)
[2021-01-18 05:02] LABS: Base Excess Venous -9.8 mmol/L
[2021-01-18 05:52] LABS: Bun/Creatinine Ratio 16.4 (12.0-20.0); Calcium, Blood 7.3 mg/dL (8.5-10.1); Creatinine, Blood 1.1 mg/dL (0.40-1.00); Magnesium, Blood 1.9 mg/dL (1.6-2.4); Potassium, Blood 3.7 mmol/L (3.5-5.5)
--- NOTE | 2021-01-18 05:52 | NUR ---
PATIENT'S PAIN MORE CONTROLLED AROUND 2200 LAST NIGHT; PATIENT SLEPT ABOUT SIX HOURS. CRITICAL PH AND LOW BICARB THIS MORNING ON VBG; ORDERS FOR CPAP IF CO2 HIGH ON VBG AND IT IS NOT; RT NOTIFIED. NO OTHER ACUTE CHANGES.
[2021-01-18 08:01] LABS: Hemoglobin 10.5 g/dL (11.5-16.0); Mean Corpuscular HGB 28.3 pg (26.0-34.0); Mean Corpuscular HGB Conc 32.8 g/dL (31.5-36.5); Mean Corpuscular Volume 86 fL (80-100); Mean Platelet Volume 8.6 fL (9.1-12.4); Platelet Count 169 K/mm3 (150-400); RDW Coefficient Variation 15.7 % (11.7-14.2); RDW Standard Deviation 49.6 fL (35.1-46.3); Red Blood Cell Count 3.71 M/mm3 (3.80-5.20); White Blood Cell Count 20.07 K/mm3 (4.00-11.30)
[2021-01-18 08:24] LABS: BAND PERCENT MAN 10 % (0-8); BASOPHILS PERCENT MAN 0 % (0-2); EOSINOPHILS PERCENT MAN 0 % (0-6); LYMPHOCYTES PERCENT MAN 4 % (21-46); MONOCYTES PERCENT MAN 7 % (4-13); NEUTROPHILS ABSOLUTE MAN 17.86 K/mm3 (1.96-9.15); SEG NEUTROPHILS PERCENT MAN 79 % (41-73); TOTAL CELLS COUNTED 100
--- NOTE | 2021-01-18 12:41 | NUR ---
PT LETHARGIC AND SLEEPING AFTER SURGICAL PROCEDURE ON ARM. DILAUDID AND FENTYNL GIVEN. RR 14-16. BP SOFT. OXYGEN MID 90S AND HR 90S. WILL MONITOR BP MORE FREQUENTLY FOR THE NEXT FEW HOURS. WOUND IS OPEN TO AIR AND ELEVATED PER ORDERS.
--- NOTE | 2021-01-18 15:13 | NUR ---
LR RUNNING 100ML/HR. PT RESPONDS TO PAIN, STILL VERY LETHARGIC. VSS ON 1L. PUPILS DILATED, NOTIFIED
--- NOTE | 2021-01-18 15:48 | NUR ---
PT WOKE UP TO VOICE AND WAS KEEPING EYES OPEN WHEN TALKING TO HER, HELD OFF ON NARCAN FOR NOW. RESPONDING TO VOICE AND PAIN NOW. WILL KEEP MONITORING. VSS ON 1L.
--- NOTE | 2021-01-18 17:49 | NUR ---
PT IS LETHARGIC, BUT WAKES UP TO VOICE. ORIENTED TO SELF, PLACE AND HAS A HARD TIME ANSWERING TIME AND SITUATION. PT STILL PRETTY GROGGY. AWARE WE HELD OFF ON NARCAN AT THIS TIME SINCE PT IS SLOWLY WAKING UP FROM IV DILAUDID AND IV FENTYNL GIVEN WITH DRAINAGE PROCEDURE OF WOUND ON ARM.
--- NOTE | 2021-01-18 19:18 | NUR ---
Pt alert and oriented x3 this AM. After I&D on right wrist, pt was lethargic and only responsive to pain. Pt was given as dose of dilaudid 1mg and a dose of fentynl during procedure per MD instruction. After wound was drained pt remained lethargic. BP became soft and RR 12-14, MD notified. LR 500ml bolus given and was told to reassess and update MD at 1500. Pt was still only responsive to pain at that time, MD notified. Narcan was ordered. When I went in to give med, pt woke up to voice and was able to keep eyes open while still very drowsy. Held off on giving Narcan. Pt slowly became more alert as evening progressed. Pt oriented to self and place, unable to answer other questions. Pt slow to respond and remained lethargic and drowsy. pupils reactive. 1L of oxygen remained on while pt was sleeping. BP improved throughout the day. wound care instructions are to elevate arm and cleanse with chlorahexadine once per shift, see orders. Wound left open to air. IV abx continued and IV fluids were d/c this AM.
--- NOTE | 2021-01-18 20:59 | NUR ---
ASSUMED CARE OF PATIENT AT APPROXIMATELY 1900 FROM [facility]. PATIENT ALERT AND ORIENTED TO SELF; RESPONDS TO VERBAL STIMULUS; DROWSY AT TIMES. PATIENT REPORTS PAIN IN RIGHT ARM/WRIST FROM CELLULITIS; PAINFUL TO MOVE; PATIENT DENIES NAUSEA OR DIZZINESS. SR ON TELE; OXYGEN SATURATION ABOVE 90% ON 1LPM VIA NC. FEDERICA RENO. PIV S/L. Q2H TURNS; USES BEDPAN; HAD ATTENDS IN PLACE.
[2021-01-19 05:53] LABS: BASOPHILS ABSOLUTE AUTO 0.06 K/mm3 (0.00-0.23); BASOPHILS PERCENT AUTO 0 % (0-2); EOSINOPHILS ABSOLUTE AUTO 0.04 K/mm3 (0.00-0.68); EOSINOPHILS PERCENT AUTO 0 % (0-6); Hematocrit 31.9 % (33.0-51.0); Hemoglobin 10.3 g/dL (11.5-16.0); IMMATURE GRAN ABSOLUTE AUTO 0.13 K/mm3 (0.00-0.10); IMMATURE GRAN PERCENT AUTO 1 % (0-1); LYMPHOCYTES PERCENT AUTO 5 % (21-46); MONOCYTES PERCENT AUTO 4 % (4-13); Mean Corpuscular HGB Conc 32.3 g/dL (31.5-36.5); Mean Corpuscular Volume 87 fL (80-100); Mean Platelet Volume 8.9 fL (9.1-12.4); NEUTROPHILS ABSOLUTE AUTO 15.52 K/mm3 (1.96-9.15); NEUTROPHILS PERCENT AUTO 90 % (41-73); Platelet Count 156 K/mm3 (150-400); RDW Coefficient Variation 15.8 % (11.7-14.2); RDW Standard Deviation 49.7 fL (35.1-46.3); Red Blood Cell Count 3.68 M/mm3 (3.80-5.20); White Blood Cell Count 17.25 K/mm3 (4.00-11.30)
[2021-01-19 06:22] LABS: Bun/Creatinine Ratio 15.3 (12.0-20.0); Calcium, Blood 7.8 mg/dL (8.5-10.1); Creatinine, Blood 1.77 mg/dL (0.40-1.00); Potassium, Blood 3.9 mmol/L (3.5-5.5)
--- NOTE | 2021-01-19 06:31 | NUR ---
PATIENT SLEPT MOST OF THE NIGHT. NO COMPLAINTS OF PAIN; ARM TENDER WITH MOVEMENT; LARGE AMOUNTS OF DISCHARGE FROM WOUND. NO OTHER ACUTE CHANGES TO REPORT.
[2021-01-19 13:52] LABS: Bun/Creatinine Ratio 16.7 (12.0-20.0); Creatinine, Blood 1.38 mg/dL (0.40-1.00); Potassium, Blood 3.1 mmol/L (3.5-5.5)
--- NOTE | 2021-01-19 15:43 | NUR ---
UPDATE PHYSICIAN NOTIFIED. PT'S HIGH NA+ AND K+. POSSIBLE CONTAMINATION WITH PRIOR LAB DRAW. ORDERS FOR OTHER LAB DRAW TO BE DONE. PT HAVING RETENTION AND FREQUENCY. REQUESTING GUTIERREZ ORDERS FROM PHYSICIAN.
[2021-01-19 16:07] LABS: Source, Urine Catheter
[2021-01-19 16:10] LABS: Appearance, Urine Hazy (Clear); Bilirubin, Urine Neg (Neg); Blood, Urine 2+ (Neg); Color, Urine Yellow (P-Yellow); Glucose Qualitative, Urine Neg (Neg); Ketones, Urine Neg (Neg); Leukocyte Esterase, Urine 1+ (Neg); Nitrite, Urine Neg (Neg); Protein, Urine 2+ (Neg); Urobilinogen, Urine NORM (Normal)
[2021-01-19 16:24] LABS: Amorphous Light (0-Heavy)
[2021-01-19 16:25] LABS: Bacteria Few /hpf; Renal Epithelial Rare /hpf (0-Rare); Squamous Epithelial Cells Few /hpf (Few)
[2021-01-19 17:10] LABS: Bun/Creatinine Ratio 15.9 (12.0-20.0); Calcium, Blood 7.6 mg/dL (8.5-10.1); Creatinine, Blood 1.89 mg/dL (0.40-1.00); Potassium, Blood 3.5 mmol/L (3.5-5.5)
--- NOTE | 2021-01-19 17:58 | NUR ---
SHIFT SUMMARY PT LETHARGIC/CONFUSED AT BEGINNING OF SHIFT. NARCAN GIVEN TO PT MID SHIFT TO ASSESS IF MENTATION CLEARS D/T PT HAVING WORSENING CONFUSION. AFTER NARCAN GIVEN PT BEGAN TO FEEL NAUSEATED AND HAVE LARGE LIQUID BM. AT BEDSIDE WITH PT T/O DAY FOR PT COMFORT. WOUND CARE PROVIDED PER PHYSICIAN ORDERS. LR RUNNING AT PRESCRIBED RATE. NO CP OR PRESSURE REPORTED. OXYGEN SATURATION MAINTAINED ABOVE 92% ON RA TO 2 L VIA NC. BP STABLE. WOUND PICTURES IN PT CHART. PT ABLE TO TURN SELF IN BED. PT IN POSITIVE FLUID BALANCE AND HAS FREQUENCY. WHITLEY PLACED PER PHYSICIAN ORDER. BLADDER SCAN DONE PER PHYSICIAN REQUEST 90 ML IN BLADDER AT THIS TIME. WILL CONT TO MONITOR UNTIL REPORT GIVEN TO TOM BIRD.
[2021-01-20 04:13] LABS: BASOPHILS ABSOLUTE AUTO 0.07 K/mm3 (0.00-0.23); BASOPHILS PERCENT AUTO 0 % (0-2); EOSINOPHILS ABSOLUTE AUTO 0.04 K/mm3 (0.00-0.68); EOSINOPHILS PERCENT AUTO 0 % (0-6); Hemoglobin 10.5 g/dL (11.5-16.0); IMMATURE GRAN PERCENT AUTO 1 % (0-1); LYMPHOCYTES ABSOLUTE AUTO 1.53 K/mm3 (0.84-5.20); LYMPHOCYTES PERCENT AUTO 9 % (21-46); MONOCYTES ABSOLUTE AUTO 0.71 K/mm3 (0.16-1.47); MONOCYTES PERCENT AUTO 4 % (4-13); Mean Corpuscular HGB Conc 30.9 g/dL (31.5-36.5); Mean Corpuscular Volume 87 fL (80-100); Mean Platelet Volume 8.9 fL (9.1-12.4); NEUTROPHILS ABSOLUTE AUTO 14.11 K/mm3 (1.96-9.15); NEUTROPHILS PERCENT AUTO 85 % (41-73); NRBC ABSOLUTE 0.03 K/mm3 (0.00-0.02); NRBC Auto 0.2 /100 WBC (0.0-0.2); Platelet Count 147 K/mm3 (150-400); RDW Coefficient Variation 15.8 % (11.7-14.2); RDW Standard Deviation 50.2 fL (35.1-46.3); Red Blood Cell Count 3.89 M/mm3 (3.80-5.20); White Blood Cell Count 16.56 K/mm3 (4.00-11.30)
--- NOTE | 2021-01-20 04:37 | NUR ---
SHIFT SUMMARY PATIENT AWAKENS TO VERBAL STIMULI. ORIENTED TO SELF, SURROUNDINGS, PLACE, TIME BUT IS CONFUSED. VITALS STABLE, ON 3L NC WITH OXYGEN SATURATION ABOVE 90%. DENIES CHEST PAIN OR PRESSURE DURING THIS SHIFT. PATIENT MEDICATED PER EMAR FOR PAIN. WOUND CARE COMPLETED ON RIGHT ARM. WOUND REMAINS OPEN TO AIR AND ELEVATED WITH DISPOSABLE PAD UNDER ARM. PERIODS OF ANXIETY DURING THE NIGHT BUT PATIENT IS REDIRECTABLE. WHITLEY REMAINS IN PLACE, DRAINING DARK YELLOW URINE TO GRAVITY. NO OTHER SIGNIFICANT CHANGES THROUGHOUT THE NIGHT. WILL CONTINUE TO MONITOR AND REPORT TO DAY SHIFT RN.
[2021-01-20 04:50] LABS: Bun/Creatinine Ratio 17.5 (12.0-20.0); Calcium, Blood 8.5 mg/dL (8.5-10.1); Creatinine, Blood 1.6 mg/dL (0.40-1.00); Magnesium, Blood 1.9 mg/dL (1.6-2.4); Potassium, Blood 3.7 mmol/L (3.5-5.5)
--- NOTE | 2021-01-20 06:01 | NUR ---
UPDATE PATIENT HAVING FREQUENT PERIODS OF ANXIETY AND RESTLESSNESS. WHEN ASSESSING THE PATIENT SHE REPORTS "SOMETHING FEELS OFF, IM GOING TO , I CAN'T BREATHE" AND REPORTS "POURING OUT SWEAT". THIS RN REASSESSED LUNG SOUNDS AND COMPLETETED MULTIPLE NEURO CHECKS. PATIENT CONTINUES TO DENY CHEST PAIN OR PRESSURE. RT IN TO ASSESS PATIENT, OFFERED BREATHING TREATMENTS AND PATIENT REFUSED. VITALS REMAIN STABLE. CALL PLACED TO HOSPITALIST FOR POSSIBLE REPEAT CHEST XRAY PER [employer] TEACHER AND RT SUGGESTION, MD HOLDING OFF AT THIS TIME. WILL CONTINUE TO MONITOR CLOSELY.
--- NOTE | 2021-01-20 10:53 | NUR ---
UPDATE INFORMED PHYSICIAN THIS AM THAT PT WAS HAVING INCREASE IN ANXIETY, SWEATING, PALE,WEAK PULSES BLE AND NAUSEA WITH LARGE AMOUNTS OF LOOSE STOOL AND WORSENING LUNG SOUNDS. ORDERS TO HAVE ATARAX, CHEST XRAY AND BLE DUPLEX SCAN. VSS. ORDERS FOR TELE TO BE BACK ON PT AT THIS TIME. ORDERS FOR ONE TIME DOSE OF OXYCODONE INCASE PT IS HAVING OPIOD WITHDRAWL. PT NOW RESTING AND ASLEEP. THIS RN CHOSE NOT TO GIVE OXYCODONE D/T POSSIBILITY OF OVERMEDICATING. WILL CONT TO MONITOR.
[2021-01-20 15:05] LABS: Bun/Creatinine Ratio 20.3 (12.0-20.0); Calcium, Blood 8.5 mg/dL (8.5-10.1); Creatinine, Blood 1.38 mg/dL (0.40-1.00); Potassium, Blood 3.5 mmol/L (3.5-5.5)
--- NOTE | 2021-01-20 16:26 | NUR ---
PT HAVING INCREASE IN O2 DEMAND. PT WENT FROM 2 L TO 12 L VIA OXYMIZER. PHYSICIAN AT [facility] ASSESSING PT AT THIS TIME.
--- NOTE | 2021-01-20 16:56 | NUR ---
UPDATE SPOKE WITH DR. ANAND REGARDING HOME PT LIST. PT NORMALLY TAKES HYDROCHOROTHIAZIDE, 25 MG ONCE DAILY. BROUGHT IN HOME MEDICATIONS.ORDERS PLACED PER PHYSICIAN FOR HOME DOSE.
[2021-01-20 17:05] LABS: Bicarbonate Venous 17.7 mmol/L (24.0-30.0); PCO2 Venous 39.1 mmHg (38-42); PO2 Venous 111 mmHg (38-42)
[2021-01-20 17:06] LABS: pH Blood Venous 7.27 (7.34-7.37)
--- NOTE | 2021-01-20 18:16 | NUR ---
SHIFT SUMMARY PT ALERT TO SELF. CONFUSED. ASKS SAME QUESTIONS FREQUENTLY. PT MOANS AND YELLS OUT. UNABLE TO VERBALLY EXPLAIN WHAT IS HURTING HER. PHYSICIAN AT BEDSIDE FREQUENTLY. AT BEDSIDE. HR STABLE. BP STABLE. OXYGEN SATURATION MAINTAINED ABOVE 92% ON 5-12 L OF OXYGEN VIA OXYMIZER. PHYSICIAN AWARE OF INCREASE IN O2 DEMAND. PT ABLE TO ASSIST IN TURNS. PT TO HAVE ONE TIME DOSE OF OXYCODONE TO SEE IF PAIN AND RESTLESNESS RESOLVES. PT HAS PRN ANXIETY MEDICATIONS. MEDICATED, SEE EMAR. HAVING PT'S AT BEDSIDE T/O SHIFT APPEARS TO IMPROVE PT'S COGNITIVE STATUS AND DECREASE ANXIETY. WOUND CARE DONE PER ORDERS. PHYSICIAN INFORMED OF PT'S POSITIVE FLUID BALANCE AND CHANGE IN LUNG SOUNDS. LASIX TO BE GIVEN THIS EVENING. WILL CONT TO MONITOR UNTIL REPORT GIVEN TO NIGHTSHIFT RN.
--- NOTE | 2021-01-20 19:27 | NUR ---
UPDATE PHYSICIAN AT BEDSIDE DURING SHIFT CHANGE. ORDERS FOR IS, AT BEDSIDE. ORDERS FROM DR. DOMINIQUE TO HAVE PT MAINTAIN O2 SAT AT 90% D/T RESP ACIDOSIS. WILL INPUT NURSE NOTIFY. WOUND CARE DRESSING INSTRUCTIONS FROM DR. DOMINIQUE PASSED [facility]NTO [facility] RN.
--- NOTE | 2021-01-20 21:30 | NUR ---
UPDATE PATIENT WAKES TO VERBAL STIMULI BUT FALLS BACK TO SLEEP MID CONVERSATION. SPOKE WITH MEDICAL RECORD TRANSCRIBER, PO MEDICATIONS HELD DUE TO MENTATION. WOUND CARE COMPLETED PER ORDER BUT WOUND CONTINUES TO WORSEN. INTACT BLISTERS ON TOP OF RIGHT HAND, DECREASED ROM, PAINFUL WITH ANY TOUCH OR MOVEMENT. SWELLING AND REDNESS CONTINUE UP PAST ELBOW, MARKED WITH MARKER. EXTREMITY ELEVATED ON PILLOW. PATIENT REPORTS FEELING WARM AND FLUSHED. NEW PICTURE IN CHART OF NEW MARKING ON INNER LEFT ELBOW, NONBLANCHABLE, 8.5 CM X 8.5 CM IN SIZE. SEE CHART. REMAINS ON 4L OXYMIZER, WITH OXYGEN SATURATION ABOVE 90%.
--- NOTE | 2021-01-21 01:59 | NUR ---
CALL TO THIS CHARGE NURSE WAS REQUESTED TO ROOM BY THE PRIMARY RN LAYNE FOR CONCERNS OF WORSENING PT CONDITION. PT IS COMPLAINING OF PAIN AND SHORTNESS OF BREATH, APPEARS UNCOMFORTABLE AND MOANING. REDNESS TO RIGHT ARM AND WRIST AREA IS INCREASING BEYOND THE BORDERS DRAWN PREVIOUSLY. PALM OF RIGHT HAND IS WHITE AND COOL, STILL SHOWING CAP REFILL AT THIS TIME AND PULSES PALPATED. VBG DRAWN TOWARD END OF DAY SHIFT NOTED AND NO ORDERS OR NOTES FOUND TO INDICATE THAT THIS RESULT HAS BEEN ADDRESSED. CALL TO DR. BARRETT AND CONCERNS COMMUNICATED. ORDERS RECEIVED AND DR BARRETT SUBSEQUENTLY PRESENT AT THE BEDSIDE TO ASSESS PT. WILL CONTINUE TO MONITOR CLOSELY FOR ANY CHANGES, PRIMARY RN UPDATED.
[2021-01-21 02:30] LABS: BASOPHILS PERCENT AUTO 1 % (0-2); EOSINOPHILS ABSOLUTE AUTO 0.02 K/mm3 (0.00-0.68); EOSINOPHILS PERCENT AUTO 0 % (0-6); Hematocrit 33.9 % (33.0-51.0); Hemoglobin 11.5 g/dL (11.5-16.0); IMMATURE GRAN ABSOLUTE AUTO 0.34 K/mm3 (0.00-0.10); IMMATURE GRAN PERCENT AUTO 2 % (0-1); LYMPHOCYTES ABSOLUTE AUTO 1.34 K/mm3 (0.84-5.20); LYMPHOCYTES PERCENT AUTO 9 % (21-46); MONOCYTES ABSOLUTE AUTO 1.24 K/mm3 (0.16-1.47); MONOCYTES PERCENT AUTO 9 % (4-13); Mean Corpuscular HGB 27.9 pg (26.0-34.0); Mean Corpuscular HGB Conc 33.9 g/dL (31.5-36.5); Mean Corpuscular Volume 82 fL (80-100); Mean Platelet Volume 9.2 fL (9.1-12.4); NEUTROPHILS ABSOLUTE AUTO 11.42 K/mm3 (1.96-9.15); NEUTROPHILS PERCENT AUTO 79 % (41-73); NRBC ABSOLUTE 0.02 K/mm3 (0.00-0.02); NRBC Auto 0.1 /100 WBC (0.0-0.2); Platelet Count 176 K/mm3 (150-400); RDW Standard Deviation 45.1 fL (35.1-46.3); Red Blood Cell Count 4.12 M/mm3 (3.80-5.20); White Blood Cell Count 14.46 K/mm3 (4.00-11.30)
[2021-01-21 03:10] LABS: Albumin, Blood 2.1 g/dL (3.4-5.0); Albumin/Globulin Ratio 0.7 (0.8-1.8); Bilirubin, Total 0.6 mg/dL (0.1-1.0); Bun/Creatinine Ratio 18.8 (12.0-20.0); Calcium, Blood 8.4 mg/dL (8.5-10.1); Creatinine, Blood 1.33 mg/dL (0.40-1.00); Globulin, Blood 3.2 g/dL (2.2-4.0); Potassium, Blood 3.2 mmol/L (3.5-5.5); Total Protein, Blood 5.3 g/dL (6.4-8.2)
--- NOTE | 2021-01-21 06:00 | NUR ---
SHIFT SUMMARY PATIENT LETHARGIC AT START OF SHIFT, 2100 MEDICATIONS HELD, SEE PREVIOUS NOTE. PATIENT NOW MORE ALERT AND WAS ABLE TO SWALLOW MORNING MEDICATIONS ONE AT A TIME. WOUND CARE COMPLETED THIS SHIFT. VSS. ON OXYMIZER 3-6 LITERS WITH SATURATION ABOVE 88%. CALL PLACED TO HOSPITALIST OVERNIGHT DUE TO CHANGE IN PATIENT'S STATUS, SEE DEEP FAT FRY COOK NOTE AND UPDATED EMAR. COOLING PAD APPLIED TO PATIENT'S BACK FOR COMFORT. PATIENT ANXIOUS AT TIMES, MEDICATED THIS AM WITH PRN MEDICATION, SEE EMAR. PATIENT ABLE TO ASSIST WITH TURNS. WHITLEY REMAINS IN PLACE DRAINING CLEAR URINE TO GRAVITY. WILL CONTINUE TO MONITOR AND REPORT TO DAY SHIFT RN.
--- NOTE | 2021-01-21 10:57 | NUR ---
UPDATE SPOKE WITH PHYSICIAN AT SHIFT CHANGE. ORDERS FOR PT TO HAVE ORTHO CONSULT. ORTHO CONSULT PLACED AND CALLED IN. ORTHO AT BEDSIDE TO ASSESS PT WITH HOSPITALIST. ORDERS FOR CT W/CONTRAST. PT PLACED NPO FOR POSSIBLE PROCEDURE. PT BACK FROM CT AND RESTING AT THIS TIME.
--- NOTE | 2021-01-21 11:46 | NUR ---
UPDATE ORTHO SURGEON AT BEDSIDE. PT DOES NOT NEED PROCEDURE TODAY. PT NO LONGER NPO. NEW ORDERS FOR WOUND CARE. WILL PUT IN NURSE NOTIFY. ORDERS TO DO WOUND CARE Q SHIFT WITH HYDROGEN PEROXIDE, NON-ADHERENT FOAM TO BE PLACED OVER WOUNDS AFTER CLEANING AND WRAPPED WITH KERLEX.
--- NOTE | 2021-01-21 17:41 | NUR ---
SHIFT SUMMARY PT MORE ALERT TODAY. ALERT TO SELF, LOCATION, YEAR AND REASON FOR BEING IN HOSPITAL.PT ABLE TO STATE PAIN IS IN BACK DURING SHIFT. PT HAS REDNESS IN FOLDS IN ABD AND COCCYX IS RED. BARRIER CREAM APPLIED AND PT TURNED Q 2 HRS AND NEEDED FOR COMFORT. NEW ORDERS FOR WOUND CARE PUT IN BY ORTHO SURGEON, WOUND CARE PROVIDED. PT'S AT BEDSIDE DURING SHIFT. OXYGEN SATURATION MAINTAINED ABOVE 92% ON 3-6 L OF OXYGEN VIA NC. PT DESATS WHEN FLAT. ABLE TO RECOVER ONCE REPOSITIONED AND SITTING UPRIGHT. PHYSICIAN AWARE. NO CP OR PRESSURE. MEDICATED PER EMAR FOR BACK PAIN AND LIDOCAINE PUT ON PT'S BACK FOR COMFORT. PT HAS CHRONIC BACK PAIN AND WAS PLANNING ON HAVING PROCEDURE UP [place] THIS WEEK PRIOR TO HOSPITAL ADMITTANCE. LUNG SOUNDS IMPROVED T/O SHIFT. LUNG SOUNDS NOT COARSE BEGINNING OF SHIFT. HR STABLE. BP STABLE. WILL CONT TO MONITOR UNTIL REPORT GIVEN TO NIGHTSHIFT RN.
--- NOTE | 2021-01-21 19:41 | NUR ---
SPOKE WITH PHYSICIAN DURING SHIFT CHANGE, WHILE GIVING REPORT THE PT REPORTED PAIN IN L LEG. REDNESS AND WARMTH NOTED AROUND WOUND WRAPPING ONTO BACK OF ANKLE. PHYSICIAN NOTIFIED. D/T LOVENOX BEING HELD THIS AM FOR POSSIBLE PROCEDURE, LOVENOX NOW ORDERED FOR 2100 MEDS FOR DVT PROPHYLAXIS . INSTRUCTED TO HAVE NIGHTSHIFT INFORM DAYSHIFT NURSE TO INFORM HOSPITALIST OF CHANGES.
--- NOTE | 2021-01-22 06:43 | NUR ---
SOCIAL GROUP WORKER SUMMARY PT IS AXO X4 AND USES THE CALL LIGHT TO MAKE HIS NEEDS KNOWN. PT HAS REPORTED PAIN IN HER UPPER BACK THROUGHOUT THE SHIFT BUT REPORTS MINIMAL PAIN IN HER R ARM OR HAND. PT HAD NEW PAINFUL RASH ON L ANKLE THAT WAS WARM TO THE TOUCH AT THE START OF THE SHIFT BUT APPEARS BETTER THIS AM. O2 SATS >90% ON 3L VIA OXYMIZER. BP WNL AND STABLE THIS SHIFT. TELE SHOWING SR IN THE 90'S THIS SHIFT. PT REPOSITIONED THROUGHOUT THE SHIFT. WIHTLEY PATENT AND DRAINING CLEAR YELLOW URINE THIS SHIFT. WILL REPORT TO ONCOMING RN.
[2021-01-22 07:17] LABS: RDW Coefficient Variation 14.8 % (11.7-14.2)
[2021-01-22 07:19] LABS: Hematocrit 28.3 % (33.0-51.0); NRBC ABSOLUTE 0.02 K/mm3 (0.00-0.02); NRBC Auto 0.2 /100 WBC (0.0-0.2)
[2021-01-22 07:32] LABS: Albumin, Blood 1.8 g/dL (3.4-5.0); Albumin/Globulin Ratio 0.5 (0.8-1.8); Bilirubin, Total 0.5 mg/dL (0.1-1.0); Bun/Creatinine Ratio 17.5 (12.0-20.0); Calcium, Blood 8.3 mg/dL (8.5-10.1); Creatinine, Blood 1.03 mg/dL (0.40-1.00); Globulin, Blood 3.9 g/dL (2.2-4.0); Potassium, Blood 2.7 mmol/L (3.5-5.5); Total Protein, Blood 5.7 g/dL (6.4-8.2)
[2021-01-22 08:15] LABS: Mean Corpuscular HGB 27.8 pg (26.0-34.0); Mean Corpuscular HGB Conc 35.3 g/dL (31.5-36.5); Mean Corpuscular Volume 79 fL (80-100); RDW Standard Deviation 42.3 fL (35.1-46.3); White Blood Cell Count 10.09 K/mm3 (4.00-11.30)
[2021-01-22 08:20] LABS: Mean Platelet Volume 9.9 fL (9.1-12.4); Platelet Count 184 K/mm3 (150-400)
[2021-01-22 08:59] LABS: BAND PERCENT MAN 1 % (0-8); BASOPHILS PERCENT MAN 0 % (0-2); EOSINOPHILS PERCENT MAN 1 % (0-6); LYMPHOCYTES PERCENT MAN 11 % (21-46); METAMYELOCYTE PERCENT MAN 2 % (0-0); MONOCYTES PERCENT MAN 4 % (4-13); MYELOCYTE PERCENT MAN 2 % (0-0); NEUTROPHILS ABSOLUTE MAN 8.07 K/mm3 (1.96-9.15); SEG NEUTROPHILS PERCENT MAN 79 % (41-73); TOTAL CELLS COUNTED 100
--- NOTE | 2021-01-22 10:00 | NUR ---
PATIENT ALERT AND ORIENTED X4. ABLE TO MOVE ALL EXTREMITIES. PUPILS EQUAL AND REACTIVE. DENIES NUMBNESS/TINGLING. COMPLAINS OF CHRONIC BACK PAIN. ON 3 L OXYMIZER SATING MID 90'S. AT TIMES DESATS WITH MOVEMENT AND REPOSITIONING. PT IN TO WORK WITH PATIENT, 1 PERSON ASSIST TO BSC. TELE SHOWING SINUS RHYTHM WITH HR 90'S. BP STABLE. DENIES CHEST PAIN/PRESSURE. NOTIFIED THIS AM PER ASSISTANT BANQUET MANAGER OF LEFT ANKLE REDNESS/RASH AND PAIN. NO REDNESS OR PAIN TO LEFT ANKLE THIS AM. PATIENT COMPLAINS OF CONTINUOUS NAUSEA. ZOFRAN AND REGLAN GIVEN THIS AM. NAUSEA CONTINUES. WHITLEY CATH IN PLACE DRAINING CLEAR/YELLOW URINE. RIGHT WRIST WOUNDS CLEANED AND REDRESSED. NEW PICTURES TAKEN AND IN CHART. ABLE TO SWALLOW PILLS WHOLE. EATING VERY MINIMAL. Q2 TURNING AND NEEDED. WILL CONTINUE TO MONITOR.
--- NOTE | 2021-01-22 11:20 | NUR ---
Echocardiogram completed.
--- NOTE | 2021-01-22 12:49 | NUR ---
CRITICAL MAGNESIUM OF 1.1. DR. AGUERO CALLED AND NOTIFIED.
--- NOTE | 2021-01-22 14:46 | NUR ---
DR. AGUERO IN TO SEE PATIENT. NEW ORDERS FOR ZOFRAN AND REGLAN X1. PATIENT CONTINUES TO BE NAUSEAOUS. SPUTUM CULTERS ORDERED AND WAITING TO BE COLLECTED. PATIENT AT CT NOW FOR CT OF CHEST. VITALS SIGNS STABLE. MAG AND POTASSIUM INFUSING. AT BEDSIDE.
[2021-01-22 16:51] LABS: Anion Gap 11 mmol/L (6-16); Blood Urea Nitrogen 14 mg/dL (8-24); Bun/Creatinine Ratio 15.6 (12.0-20.0); CO2, Blood 27 mmol/L (21-32); Calcium, Blood 8.4 mg/dL (8.5-10.1); Chloride, Blood 97 mmol/L (98-108); Glomerular Filtration Rate >60 (60-); Glucose, Blood 101 mg/dL (70-99); Magnesium, Blood 2.2 mg/dL (1.6-2.4); Potassium, Blood 3.1 mmol/L (3.5-5.5); Sodium, Blood 135 mmol/L (136-145)
[2021-01-22 18:18] LABS: Influenza A, PCR NEGATIVE (NEGATIVE); Influenza B, PCR NEGATIVE (NEGATIVE); Resp Syncytial Virus, PCR NEGATIVE (NEGATIVE); SARS-Cov-2 (COVID-19) PCR, MMC NEGATIVE (NEGATIVE)
--- NOTE | 2021-01-22 18:49 | NUR ---
NO ACUTE CHANGES SEE PREVIOUS NOTE. PROMETHAZINE GIVEN PO. PATIENT AT THIS TIME STILL COMPLAINING OF NAUSEA. UP TO BSC WITH 1 PERSON ASSIST. PATIENT REPORTS DIARRHEA. ANTIBIOTICS INFUSING. TELE REMAINS UNCHANGED. ON 3L OXYMIZER. COMPLAINS OF PAIN IN BACK. ICE PACK AND MEDICATED PER EMAR. CALL LIGHT IN REACH. WILL REPORT OFF TO ONCOMING RN.
[2021-01-23 03:20] LABS: Adenovirus F 40/41 Not Detected (NOT DETECT); Astrovirus Not Detected (NOT DETECT); Campylobacter Sp Not Detected (NOT DETECT); Cryptosporidium Not Detected (NOT DETECT); Cyclospora Cayetanensis Not Detected (NOT DETECT); E. Coli O157 Not Detected (NOT DETECT); Entamoeba Histolytica Not Detected (NOT DETECT); Enteroaggregative E. coli-EAEC Not Detected (NOT DETECT); Enteropathogenic E. coli-EPEC Not Detected (NOT DETECT); Enterotoxigenic E. coli-ETEC Not Detected (NOT DETECT); Giardia Lamblia Not Detected (NOT DETECT); Norovirus GI/GII Not Detected (NOT DETECT); Plesiomonas Shigelloides Not Detected (NOT DETECT); Rotavirus A Not Detected (NOT DETECT); Salmonella Sp Not Detected (NOT DETECT); Sapovirus Not Detected (NOT DETECT); Shiga Toxin-prod E. coli-STEC Detected (NOT DETECT); Shigella/Enteroin E. coli-EIEC Not Detected (NOT DETECT); Vibrio Cholerae Not Detected (NOT DETECT); Vibrio Sp Not Detected (NOT DETECT); Yersinia Enterocolitica Not Detected (NOT DETECT)
[2021-01-23 04:33] LABS: Hematocrit 29.6 % (33.0-51.0); Hemoglobin 10.4 g/dL (11.5-16.0); Mean Corpuscular HGB Conc 35.1 g/dL (31.5-36.5); Mean Corpuscular Volume 80 fL (80-100); Mean Platelet Volume 9.3 fL (9.1-12.4); NRBC ABSOLUTE 0.04 K/mm3 (0.00-0.02); NRBC Auto 0.3 /100 WBC (0.0-0.2); Platelet Count 254 K/mm3 (150-400); RDW Coefficient Variation 14.8 % (11.7-14.2); RDW Standard Deviation 42.6 fL (35.1-46.3); Red Blood Cell Count 3.72 M/mm3 (3.80-5.20)
[2021-01-23 04:53] LABS: Anion Gap 12 mmol/L (6-16); Blood Urea Nitrogen 10 mg/dL (8-24); Bun/Creatinine Ratio 12.7 (12.0-20.0); CO2, Blood 30 mmol/L (21-32); Calcium, Blood 8.6 mg/dL (8.5-10.1); Chloride, Blood 92 mmol/L (98-108); Creatinine, Blood 0.79 mg/dL (0.40-1.00); Glomerular Filtration Rate >60 (60-); Glucose, Blood 107 mg/dL (70-99); Magnesium, Blood 1.2 mg/dL (1.6-2.4); Potassium, Blood 2.9 mmol/L (3.5-5.5); Sodium, Blood 134 mmol/L (136-145)
[2021-01-23 05:01] LABS: BAND PERCENT MAN 4 % (0-8); BASOPHILS PERCENT MAN 0 % (0-2); EOSINOPHILS ABSOLUTE MAN 0.12 K/mm3 (0.00-0.68); EOSINOPHILS PERCENT MAN 1 % (0-6); LYMPHOCYTES % ATYPICAL MANUAL 3 % (0-0); LYMPHOCYTES ABSOLUTE MAN 2.88 K/mm3 (0.84-5.20); LYMPHOCYTES PERCENT MAN 21 % (21-46); MONOCYTES PERCENT MAN 5 % (4-13); MYELOCYTE ABSOLUTE MAN 0.24 K/mm3 (0.00-0.00); MYELOCYTE PERCENT MAN 2 % (0-0); NEUTROPHILS ABSOLUTE MAN 8.16 K/mm3 (1.96-9.15); SEG NEUTROPHILS PERCENT MAN 64 % (41-73); TOTAL CELLS COUNTED 100
--- NOTE | 2021-01-23 05:24 | NUR ---
FINANCIAL SERVICES CONSULTANT SUMMARY PT IS AXO X4 AND USES THE CALL LIGHT TO MAKE HER NEEDS KNOWN, PT HAS NO REPORTED PAIN IN HER ARM THIS SHIFT RATHER SHE HAS HAD CONSTANT PAIN IN HER BACK W INTERMITTANT NAUSEA THAT HAS KEPT HER AWAKE MOST OF THE NIGHT. BP MILDLY ELEVATED THIS SHIFT REQUIRING PRN HYDRALAZINE X2 THIS SHIFT. O2 SATS >92% ON RM AIR. PT AFEBRILE THIS SHIFT. WILL REPORT TO ONCOMING RN.
--- NOTE | 2021-01-23 11:02 | NUR ---
Dressing change completed , right forearm. Pt states that it is not causing much pain, only her chronic back pain is a problem. States that she takes Ultram twice a day at home and has toradol shots as outpatient as needed at her [place] office.
--- NOTE | 2021-01-23 12:42 | NUR ---
Ambulated to the bathroom to void. spo2 dropped to 83% on 2 l/min O2 delivery during the activity. Recovered on 3 l/min O2 to 95% within 2 minutes. Mild dyspnea, coughing with productive white sputum expectorated. Specimen was sent to lab earlier. Oxygen delivery reduced back to 2 l/min while at rest, maintaining spo2 greater than 90%.
--- NOTE | 2021-01-23 14:57 | NUR ---
Medicated for pain with Ultram. Wound care was completed on the left forearm per orders. pt tolerated very well. Dressing was replaced. at the bedside, pt is talking on the phone with her son.
--- NOTE | 2021-01-23 14:58 | NUR ---
Pt encouraged to continue use of Incentive spirometer; she states that she has been using it. Continues to have expectoration of small amounts of white sputum.
[2021-01-23 15:27] LABS: Magnesium, Blood 1.6 mg/dL (1.6-2.4); Potassium, Blood 3.8 mmol/L (3.5-5.5)
--- NOTE | 2021-01-23 18:39 | NUR ---
SHIFT SUMMARY PT IS ON 4L RESTING COMFORTABLE IN BED. SHE HAS BEEN BACK AND FORTH TO THE BATHROOM SEVERAL TIMES AND IS MAINTAINING HER SATS. SHE COMPLAINS OF CONSTANT PAINS IN HER LOWER BACK, BUT CAN ONLY BE MEDICATED Q6 SO AN ICE PACK IS USED FOR COMFORT IN THE MEANTIME. SHE IS HOPEFUL TO CONTINUE HEALING AND SIDCHARGE WITHIN THE NEXT FEW DAYS. WILL CONTINUE TO MONITOR
[2021-01-24 06:38] LABS: BAND PERCENT MAN 4 % (0-8); BASOPHILS PERCENT MAN 0 % (0-2); EOSINOPHILS PERCENT MAN 1 % (0-6); LYMPHOCYTES PERCENT MAN 19 % (21-46); METAMYELOCYTE PERCENT MAN 2 % (0-0); MONOCYTES PERCENT MAN 6 % (4-13); MYELOCYTE PERCENT MAN 1 % (0-0); SEG NEUTROPHILS PERCENT MAN 67 % (41-73); TOTAL CELLS COUNTED 100
[2021-01-24 06:44] LABS: Anion Gap 12 mmol/L (6-16); Blood Urea Nitrogen 9 mg/dL (8-24); Bun/Creatinine Ratio 13.6 (12.0-20.0); CO2, Blood 29 mmol/L (21-32); Chloride, Blood 92 mmol/L (98-108); Creatinine, Blood 0.66 mg/dL (0.40-1.00); Glomerular Filtration Rate >60 (60-); Glucose, Blood 99 mg/dL (70-99); Magnesium, Blood 1.6 mg/dL (1.6-2.4); Potassium, Blood 3.8 mmol/L (3.5-5.5); Sodium, Blood 133 mmol/L (136-145)
--- NOTE | 2021-01-24 06:46 | NUR ---
65 YEAR OLD fEMALE WITH SEPSIS & RT ARM BULLAE & WOUND CARE TO SITE CONTINUES ON iv ABX. pt HAS CO GEN PAIN MEDICATED 2 X WITH 50 MG ULTRAM. PT has asthma & is requiring up to 4 l nc to keep sats greater than 90%. Sats as low as 85 % on 2 l with activity. PT makes minimal effort at doing IS as directed. Productive cough. PT up indep in room using Fww to aide in safe mobility.
[2021-01-24 07:45] LABS: BASOPHILS ABSOLUTE AUTO 0.06 K/mm3 (0.00-0.23); BASOPHILS PERCENT AUTO 1 % (0-2); EOSINOPHILS ABSOLUTE AUTO 0.19 K/mm3 (0.00-0.68); EOSINOPHILS ABSOLUTE MAN 0.12 K/mm3 (0.00-0.68); EOSINOPHILS PERCENT AUTO 2 % (0-6); Hematocrit 28.9 % (33.0-51.0); IMMATURE GRAN ABSOLUTE AUTO 0.82 K/mm3 (0.00-0.10); IMMATURE GRAN PERCENT AUTO 7 % (0-1); LYMPHOCYTES ABSOLUTE MAN 2.33 K/mm3 (0.84-5.20); LYMPHOCYTES PERCENT AUTO 18 % (21-46); METAMYELOCYTE ABSOLUTE MAN 0.24 K/mm3 (0.00-0.00); MONOCYTES ABSOLUTE AUTO 0.95 K/mm3 (0.16-1.47); MONOCYTES ABSOLUTE MAN 0.73 K/mm3 (0.16-1.47); MONOCYTES PERCENT AUTO 8 % (4-13); MYELOCYTE ABSOLUTE MAN 0.12 K/mm3 (0.00-0.00); Mean Corpuscular HGB 27.9 pg (26.0-34.0); Mean Corpuscular HGB Conc 34.6 g/dL (31.5-36.5); Mean Corpuscular Volume 81 fL (80-100); Mean Platelet Volume 9.5 fL (9.1-12.4); NEUTROPHILS ABSOLUTE AUTO 8.06 K/mm3 (1.96-9.15); NEUTROPHILS ABSOLUTE MAN 8.71 K/mm3 (1.96-9.15); NEUTROPHILS PERCENT AUTO 66 % (41-73); Platelet Count 302 K/mm3 (150-400); RDW Coefficient Variation 15.2 % (11.7-14.2); RDW Standard Deviation 44.4 fL (35.1-46.3); Red Blood Cell Count 3.58 M/mm3 (3.80-5.20); White Blood Cell Count 12.28 K/mm3 (4.00-11.30)
[2021-01-24] MEDS ORDERED: KLOR-CON 1010 ME5 PO (16:58)
[2021-01-24] MEDS ORDERED: OMEP20ER PO (17:00)
[2021-01-24] MEDS ORDERED: REMERON PO (17:00)
[2021-01-24] MEDS ORDERED: ESCI20 PO (17:00)
[2021-01-24] MEDS ORDERED: CLON.1 PO (17:01)
[2021-01-24] MEDS ORDERED: FAMC250 PO (17:02)
--- NOTE | 2021-01-24 18:27 | NUR ---
END OF SHIFT SUMMARY: PATIENT PAIN CONTROLLED WITH PRN MEDICATIONS AND COOL APPLICATION. PATIENT UP TO THE CHAIR AND UP TO THE BATHROOM MULTIPLE TIMES. PATIENT REPORTS IMPROVEMENT IN BREATHING. PATIENT ABLE TO TOLERATE BEING ON 2L VIA NC. PATIENT UP TO THE BATHROOM MANY TIMES THIS EVENING RELATED TO ONE TIME DOSE OF LASIX. PATIENT DID REPORT MILD SHORTNESS OF BREATH WITH THIS MUCH ACTIVITY. PATIENT APPEARS COMFORTABLE AND QUICKLY CATCHES BREATH AT REST. PATIENT CONTINUES TO HAVE A MINIMAL APPETITE, REPORTING THAT FOOD JUST DOESN'T TASTE GOOD. MEDICATED ONCE FOR NAUSEA. PATIENT RESPONDED WELL. PATIENT CONTINUES TO HAVE LOOSE STOOLS, BUT THE FREQUENCY HAS DECREASED SIGNIFICANTLY PER THE PATIENT. DRESSING CHANGED. PATIENT TOLERATED WELL.
--- NOTE | 2021-01-25 04:37 | NUR ---
PATIENT IS PLEASANT AND COOPERATIVE WITH STAFF. C/O BACK PAIN TWICE THIS SHIFT WITH EFFECTIVE RESULTS FROM REQUESTED PAIN MEDICATION. PATIENT HAS RECIEVED SOME GOOD SLEEP THIS SHIFT. SHE CONTINUES ON IV ABX WITHOUT S/SX OF ADVERSE REACTIONS NOTED OR REPORTED. PATIENT CALLS APPROPRIATELY FOR STAFF ASSIST NEEDED.
[2021-01-25 05:34] LABS: Hematocrit 30.4 % (33.0-51.0); Hemoglobin 10.2 g/dL (11.5-16.0); Mean Corpuscular HGB 27.4 pg (26.0-34.0); Mean Corpuscular HGB Conc 33.6 g/dL (31.5-36.5); Mean Corpuscular Volume 82 fL (80-100); Mean Platelet Volume 9.4 fL (9.1-12.4); Platelet Count 318 K/mm3 (150-400); RDW Coefficient Variation 15.3 % (11.7-14.2); RDW Standard Deviation 45.6 fL (35.1-46.3); Red Blood Cell Count 3.72 M/mm3 (3.80-5.20); White Blood Cell Count 11.04 K/mm3 (4.00-11.30)
[2021-01-25 06:02] LABS: Anion Gap 9 mmol/L (6-16); Blood Urea Nitrogen 10 mg/dL (8-24); Bun/Creatinine Ratio 15.2 (12.0-20.0); CO2, Blood 32 mmol/L (21-32); Calcium, Blood 8.1 mg/dL (8.5-10.1); Chloride, Blood 92 mmol/L (98-108); Creatinine, Blood 0.66 mg/dL (0.40-1.00); Glomerular Filtration Rate >60 (60-); Glucose, Blood 97 mg/dL (70-99); Sodium, Blood 133 mmol/L (136-145)
[2021-01-25 09:26] LABS: BASOPHILS PERCENT MAN 0 % (0-2); EOSINOPHILS ABSOLUTE MAN 0.11 K/mm3 (0.00-0.68); EOSINOPHILS PERCENT MAN 1 % (0-6); LYMPHOCYTES ABSOLUTE MAN 2.42 K/mm3 (0.84-5.20); LYMPHOCYTES PERCENT MAN 22 % (21-46); METAMYELOCYTE ABSOLUTE MAN 0.11 K/mm3 (0.00-0.00); METAMYELOCYTE PERCENT MAN 1 % (0-0); MONOCYTES ABSOLUTE MAN 0.44 K/mm3 (0.16-1.47); MONOCYTES PERCENT MAN 4 % (4-13); MYELOCYTE ABSOLUTE MAN 0.11 K/mm3 (0.00-0.00); MYELOCYTE PERCENT MAN 1 % (0-0); NEUTROPHILS ABSOLUTE MAN 7.83 K/mm3 (1.96-9.15); SEG NEUTROPHILS PERCENT MAN 71 % (41-73); TOTAL CELLS COUNTED 100
[2021-01-25] MEDS ORDERED: BANATROL PLUS1 EAC1 PO (12:51)
[2021-01-25] MEDS ORDERED: ALBU2.5V5 INH (12:51)
[2021-01-25] MEDS ORDERED: CALCIUM CARBON500 M1 PO (12:51)
[2021-01-25] MEDS ORDERED: CEPH500 PO (12:52)
[2021-01-25] MEDS ORDERED: Diltiazem ER60 MG PO (12:53)
[2021-01-25] MEDS ORDERED: Atarax10 MG PO (12:55)
[2021-01-25] MEDS ORDERED: MUPIROCIN1 G1 TOP (12:56)
[2021-01-25] MEDS ORDERED: PROMETHAZINE12.5 M1 PO (12:56)
[2021-01-25] MEDS ORDERED: TRAM50 PO (12:57)
[2021-01-25] MEDS ORDERED: VISBIOME 112.51 EACH PO (12:57)
[2021-01-25] MEDS ORDERED: VITAMIN D31000 UNI1 PO (12:58)
--- NOTE | 2021-01-25 15:34 | NUR ---
PT DISCHARGED THE PT VERBALIZED UNDERSTANDING OF THE DISCHARGE INSTRUCTIONS. PTS PRESCRIPTIONS WERE FAXED TO [facility] INSTRUCTED. PORTABLE OXYGEN WAS APPLIED AT DISCHARGE THE PT WAS INSTRUCTED TO CALL HER PCP TO SCHEDULE A FOLLOW UP APPOINTMENT. THE PT WAS TRANSFERED VIA WHEELCHAIR ACCOMPANIED BY [facility] TO MEET HER RIDE AT THE FRONT ENTRANCE
== END 2021-01-25 14:47 | disposition home health service (06) | DRG 871 ==
LOC: ER 10:48 → ERHOLD 14:21 → PCU 14:21 → MEDS 01-23 15:43
PROVIDERS: Emergency Medicine; Family Medicine; Nurse Practitioner Acute Care; Student in an Organized Health Care Education/Training Program; ADMIT Internal Medicine
PROC: 0H9DXZZ Drainage of Right Lower Arm Skin, External Approach (ICD-10-PCS; principal; 2021-01-18)
PROC: 0HBDXZZ Excision of Right Lower Arm Skin, External Approach (ICD-10-PCS; 2021-01-18)
DX: A40.0 Sepsis due to streptococcus, group A (principal); J96.21 Acute and chronic respiratory failure with hypoxia; J18.9 Pneumonia, unspecified organism; G92.8 Other toxic encephalopathy; N17.0 Acute kidney failure with tubular necrosis; J69.0 Pneumonitis due to inhalation of food and vomit; I50.31 Acute diastolic (congestive) heart failure; E87.2 Acidosis; L03.113 Cellulitis of right upper limb; F41.9 Anxiety disorder, unspecified; R33.9 Retention of urine, unspecified; R23.8 Other skin changes; I77.1 Stricture of artery; K59.03 Drug induced constipation; T40.2X5A Adverse effect of other opioids, initial encounter; K21.9 Gastro-esophageal reflux disease without esophagitis; E87.6 Hypokalemia; E83.51 Hypocalcemia; E03.9 Hypothyroidism, unspecified; Z88.2 Allergy status to sulfonamides; Z88.5 Allergy status to narcotic agent; Z88.8 Allergy status to other drugs, medicaments and biological substances; F32.A Depression, unspecified; D50.9 Iron deficiency anemia, unspecified; Z90.710 Acquired absence of both cervix and uterus; Z90.49 Acquired absence of other specified parts of digestive tract; Z79.899 Other long term (current) drug therapy; I95.9 Hypotension, unspecified; I11.0 Hypertensive heart disease with heart failure; T40.601A Poisoning by unspecified narcotics, accidental (unintentional), initial encounter; B96.5 Pseudomonas (aeruginosa) (mallei) (pseudomallei) as the cause of diseases classified elsewhere; B96.23 Unspecified Shiga toxin-producing Escherichia coli [E. coli] [STEC] as the cause of diseases classified elsewhere; T36.8X5A Adverse effect of other systemic antibiotics, initial encounter; T36.0X5A Adverse effect of penicillins, initial encounter; E83.42 Hypomagnesemia
CPT/HCPCS: 0097U; 0241U; 36415; 51702; 71045; 71250; 73100; 73201; 80048; 80053; 81001; 82330; 82803; 82947; 83605; 83735; 83880; 84132; 84145; 84439; 84443; 84481; 84484; 85025; 85610; 85651; 86140; 87040; 87070; 87075; 87077; 87086; 87147; 87186; 87205; 87252; 87254; 93005; 93010; 93306; 93925; 94640; 94664; 94760; 94761; 96365-59; 96366; 96368; 96375-59; 96376-59; 97110; 97112; 97162; 97166; 97530; 97535; 99285-25; A9270; C1751; G0480; J0360; J0690; J0696; J1170; J1650; J1940; J2310; J2405; J2543; J2765; J3010; J3370; J3475; J3480; J7030; J7040; J7050; J7120; Q9967

== ENCOUNTER → 2021-10-30 | Outpatient (CLI) | payer MEDICARE, OTHER ==
[~2021-10-30] MED LIST changes: +Atarax10 MG PO; +BANATROL PLUS1 EAC1 PO; +CALCIUM CARBON500 M1 PO; +CEPH500 PO; +Diltiazem ER60 MG PO; +ESCI20 PO; +KLOR-CON 1010 ME5 PO; +MUPIROCIN1 G1 TOP; +OMEP20ER PO; +PROMETHAZINE12.5 M1 PO; +REMERON PO; +VISBIOME 112.51 EACH PO; +VITAMIN D31000 UNI1 PO
[2021-10-30 11:59] LABS: BASOPHILS ABSOLUTE AUTO 0.09 K/mm3 (0.00-0.23); BASOPHILS PERCENT AUTO 1 % (0-2); EOSINOPHILS ABSOLUTE AUTO 0.11 K/mm3 (0.00-0.68); EOSINOPHILS PERCENT AUTO 1 % (0-6); Hematocrit 46.4 % (33.0-51.0); Hemoglobin 15.9 g/dL (11.5-16.0); IMMATURE GRAN ABSOLUTE AUTO 0.03 K/mm3 (0.00-0.10); IMMATURE GRAN PERCENT AUTO 0 % (0-1); LYMPHOCYTES ABSOLUTE AUTO 3.49 K/mm3 (0.84-5.20); LYMPHOCYTES PERCENT AUTO 29 % (21-46); MONOCYTES ABSOLUTE AUTO 0.71 K/mm3 (0.16-1.47); MONOCYTES PERCENT AUTO 6 % (4-13); Mean Corpuscular HGB 28.5 pg (26.0-34.0); Mean Corpuscular HGB Conc 34.3 g/dL (31.5-36.5); Mean Corpuscular Volume 83 fL (80-100); Mean Platelet Volume 8.8 fL (9.1-12.4); NEUTROPHILS ABSOLUTE AUTO 7.58 K/mm3 (1.96-9.15); NEUTROPHILS PERCENT AUTO 63 % (41-73); Platelet Count 427 K/mm3 (150-400); RDW Coefficient Variation 13.8 % (11.7-14.2); RDW Standard Deviation 41.5 fL (35.1-46.3); Red Blood Cell Count 5.58 M/mm3 (3.80-5.20); White Blood Cell Count 12.01 K/mm3 (4.00-11.30)
[2021-10-30 12:10] LABS: Albumin, Blood 4.6 g/dL (3.4-5.0); Albumin/Globulin Ratio 1.2 (0.8-1.8); Bun/Creatinine Ratio 15.1 (12.0-20.0); Calcium, Blood 10.1 mg/dL (8.5-10.1); Creatinine, Blood 1.39 mg/dL (0.40-1.00); Globulin, Blood 3.9 g/dL (2.2-4.0); Potassium, Blood 3.9 mmol/L (3.5-5.5); Total Protein, Blood 8.5 g/dL (6.4-8.2)
== END | disposition home or self-care (01) ==
LOC: LAB SHORT 11:54
PROVIDERS: Chiropractor
DX: R11.0 Nausea (principal); Z87.19 Personal history of other diseases of the digestive system
CPT/HCPCS: 80053; 83690; 85025

== ENCOUNTER 2022-01-23 10:48 | Inpatient (IN) | payer MEDICARE, OTHER ==
[~2022-01-23] VITALS: Ht 160 cm; Wt 59.4 kg
[~2022-01-23 10:48] MED LIST changes: +PROM25 PO; +XARELTO15 MG PO
[2022-01-23] MEDS ORDERED: BUPROPION XL150 M1 PO (11:07)
[2022-01-23] MEDS ORDERED: GABAPENTIN600 MG PO (11:07)
[2022-01-23 12:37] LABS: BASOPHILS ABSOLUTE AUTO 0.04 K/mm3 (0.00-0.23); BASOPHILS PERCENT AUTO 0 % (0-2); EOSINOPHILS ABSOLUTE AUTO 0.05 K/mm3 (0.00-0.68); EOSINOPHILS PERCENT AUTO 0 % (0-6); Hematocrit 41.9 % (33.0-51.0); Hemoglobin 14.5 g/dL (11.5-16.0); IMMATURE GRAN ABSOLUTE AUTO 0.03 K/mm3 (0.00-0.10); IMMATURE GRAN PERCENT AUTO 0 % (0-1); LYMPHOCYTES ABSOLUTE AUTO 3.12 K/mm3 (0.84-5.20); LYMPHOCYTES PERCENT AUTO 24 % (21-46); MONOCYTES ABSOLUTE AUTO 0.82 K/mm3 (0.16-1.47); MONOCYTES PERCENT AUTO 6 % (4-13); Mean Corpuscular HGB 27.6 pg (26.0-34.0); Mean Corpuscular HGB Conc 34.6 g/dL (31.5-36.5); Mean Corpuscular Volume 80 fL (80-100); NEUTROPHILS PERCENT AUTO 68 % (41-73); Platelet Count 379 K/mm3 (150-400); RDW Coefficient Variation 13.4 % (11.7-14.2); RDW Standard Deviation 38.7 fL (35.1-46.3); Red Blood Cell Count 5.26 M/mm3 (3.80-5.20); White Blood Cell Count 12.86 K/mm3 (4.00-11.30)
[2022-01-23 12:51] LABS: Albumin, Blood 3.8 g/dL (3.4-5.0); Bilirubin, Total 0.7 mg/dL (0.1-1.0); Bun/Creatinine Ratio 14.7 (12.0-20.0); Calcium, Blood 9.6 mg/dL (8.5-10.1); Creatinine, Blood 0.82 mg/dL (0.40-1.00); Globulin, Blood 3.7 g/dL (2.2-4.0); Magnesium, Blood 1.7 mg/dL (1.6-2.4); Potassium, Blood 3.8 mmol/L (3.5-5.5); Prolactin 78.1 ng/mL (2.74-19.64); Total Protein, Blood 7.5 g/dL (6.4-8.2)
[2022-01-23 12:53] LABS: Base Excess Venous 0.2 mmol/L; Bicarbonate Venous 23.9 mmol/L (24.0-30.0); PCO2 Venous 37.9 mmHg (38-42); pH Blood Venous 7.42 (7.34-7.37)
[2022-01-23 13:30] LABS: Influenza A, PCR NEGATIVE (NEGATIVE); Influenza B, PCR NEGATIVE (NEGATIVE); Resp Syncytial Virus, PCR NEGATIVE (NEGATIVE); SARS-Cov-2 (COVID-19) PCR, MMC NEGATIVE (NEGATIVE)
[2022-01-23 15:23] LABS: Source, Urine Suprapubic Cath
[2022-01-23 15:30] LABS: Appearance, Urine Clear (Clear); Bilirubin, Urine Neg (Neg); Blood, Urine 2+ (Neg); Color, Urine Yellow (P-Yellow); Glucose Qualitative, Urine Neg (Neg); Ketones, Urine 4+ (Neg); Leukocyte Esterase, Urine Neg (Neg); Nitrite, Urine Neg (Neg); Protein, Urine 2+ (Neg); Urobilinogen, Urine NORM (Normal)
[2022-01-23 15:44] LABS: U Amphetamine Screen Not Detected; U Barbituate Screen Not Detected; U Benzodiazapine Screen DETECTED; U Buprenorphine Screen Not Detected; U Cannabinoids Screen DETECTED; U Cocaine Screen Not Detected; U Methadone Screen Not Detected; U Methamphetamine Screen Not Detected; U Opiates Screen Not Detected; U Oxycodone Screen Not Detected; U Phencyclidine Screen Not Detected; U Propoxyphene Screen Not Detected
[2022-01-23 15:50] LABS: Amorphous Light (0-Heavy); Bacteria Few /hpf; Hyaline Casts 0-2 /lpf (0-2); Squamous Epithelial Cells Rare /hpf (Few); White Blood Cells, Urine 0-2 /hpf (0-5)
--- NOTE | 2022-01-23 17:52 | NUR ---
Pt arrived to ICU at approximately 1704, report received from WEIGHT YARDAGE CHECKER. Pt ventilated via ett. Vent settings: AC/VC 14/400/5/30%. Pt responsive to painful stimuli. No seizure-like activity noted upon admit. Pt hypertensive, vs otherwise stable. Will continue to monitor.
[2022-01-23 18:12] LABS: Anti-Xa UFH, PHA Monitoring <0.10 IU/mL; International Normalized Ratio 1.03; Prothrombin Time Results 10.8 Sec (9.7-11.5)
--- NOTE | 2022-01-23 19:30 | NUR ---
Shift summary. Pt continues on ventilator, no changes. PG placed in FAITH. VS remain stable ATT. Report given to oncoming RN.
[2022-01-24 04:02] LABS: BASOPHILS ABSOLUTE AUTO 0.03 K/mm3 (0.00-0.23); BASOPHILS PERCENT AUTO 0 % (0-2); EOSINOPHILS ABSOLUTE AUTO 0.04 K/mm3 (0.00-0.68); EOSINOPHILS PERCENT AUTO 1 % (0-6); Hematocrit 33.8 % (33.0-51.0); Hemoglobin 11.7 g/dL (11.5-16.0); IMMATURE GRAN ABSOLUTE AUTO 0.03 K/mm3 (0.00-0.10); IMMATURE GRAN PERCENT AUTO 0 % (0-1); LYMPHOCYTES ABSOLUTE AUTO 2.26 K/mm3 (0.84-5.20); LYMPHOCYTES PERCENT AUTO 27 % (21-46); MONOCYTES ABSOLUTE AUTO 0.68 K/mm3 (0.16-1.47); MONOCYTES PERCENT AUTO 8 % (4-13); Mean Corpuscular HGB Conc 34.6 g/dL (31.5-36.5); Mean Corpuscular Volume 81 fL (80-100); Mean Platelet Volume 8.7 fL (9.1-12.4); NEUTROPHILS PERCENT AUTO 64 % (41-73); NRBC ABSOLUTE 0.02 K/mm3 (0.00-0.02); NRBC Auto 0.2 /100 WBC (0.0-0.2); Platelet Count 270 K/mm3 (150-400); RDW Coefficient Variation 13.8 % (11.7-14.2); RDW Standard Deviation 40.7 fL (35.1-46.3); Red Blood Cell Count 4.18 M/mm3 (3.80-5.20); White Blood Cell Count 8.54 K/mm3 (4.00-11.30)
[2022-01-24 04:35] LABS: Albumin, Blood 2.9 g/dL (3.4-5.0); Bilirubin, Total 0.5 mg/dL (0.1-1.0); Creatinine, Blood 0.9 mg/dL (0.40-1.00); Magnesium, Blood 1.9 mg/dL (1.6-2.4); Potassium, Blood 3.1 mmol/L (3.5-5.5); Total Protein, Blood 5.9 g/dL (6.4-8.2)
--- NOTE | 2022-01-24 06:56 | NUR ---
SHIFT SUMMARY: NEURO: PATIENT GRIMACING WITH CARE. NOTIFIED MD, ORDER OBTAINED FOR Q1 ATIVAN, VERY EFFECTIVE. NO SEIZURE ACTIVITY NOTED DURING SHIFT. CARDIAC: BP ORIGINALLY ELEVATED, ATIVAN RESOLVED ISSUE. AFEBRILE. RESP: INTUBATED 10/15 AT TEETH. 14/400/5/30% LUNGS COARSE GI/: WHITLEY IN PLACE DRAINING TO GRAVITY, NO BM THIS SHIFT. SKIN: FRAGILE AND BRUISED BUT INTACT
[2022-01-24 15:13] LABS: Automated CSF WBC Count 0.001 K/mm3 (0-5)
[2022-01-24 15:18] LABS: WBC Count, CSF 1 /mm3 (0-5)
[2022-01-24 15:42] LABS: RBC Count, CSF 2 /mm3 (0-0)
[2022-01-24 15:45] LABS: Appearance, CSF Clear (Clear); Color, CSF No Color (No Color)
--- NOTE | 2022-01-24 18:44 | NUR ---
Shift summary. Pt continues ventilated via ETT, no changes to vent settings. Pt taken to radiology today for LP, samples successfuly drawn and sent to lab. Propofol currently on SB since 1644 for wean, no purposeful movement or response to commands observed so far. Heparin on SB, to be restarted at [address] Larson. PG in FAITH, IV in R/hand. Parada catheter in place. No acute events this shift, see assessment for further details. VS stable, will report off to oncoming RN.
[2022-01-24 22:53] LABS: Cryptococcus Neoformans/Gattii Not Detected (NOT DETECT); Enterovirus Not Detected (NOT DETECT); Escherichia Coli K1 Not Detected (NOT DETECT); Haemophilus Influenza Not Detected (NOT DETECT); Herpes Simplex Virus 1 Not Detected (NOT DETECT); Herpes Simplex Virus 2 Not Detected (NOT DETECT); Human Herpesvirus 6 Not Detected (NOT DETECT); Human Parechovirus Not Detected (NOT DETECT); Listeria Monocytogenes Not Detected (NOT DETECT); Neisseria Meningitidis Not Detected (NOT DETECT); Streptococcus Agalactiae Not Detected (NOT DETECT); Streptococcus Pneumoniae Not Detected (NOT DETECT); Varicella Zoster Virus Not Detected (NOT DETECT)
[2022-01-25 04:07] LABS: BASOPHILS ABSOLUTE AUTO 0.05 K/mm3 (0.00-0.23); BASOPHILS PERCENT AUTO 1 % (0-2); EOSINOPHILS ABSOLUTE AUTO 0.18 K/mm3 (0.00-0.68); EOSINOPHILS PERCENT AUTO 2 % (0-6); Hematocrit 33.9 % (33.0-51.0); Hemoglobin 11.6 g/dL (11.5-16.0); IMMATURE GRAN ABSOLUTE AUTO 0.03 K/mm3 (0.00-0.10); IMMATURE GRAN PERCENT AUTO 0 % (0-1); LYMPHOCYTES PERCENT AUTO 19 % (21-46); MONOCYTES ABSOLUTE AUTO 0.77 K/mm3 (0.16-1.47); MONOCYTES PERCENT AUTO 8 % (4-13); Mean Corpuscular HGB 28.1 pg (26.0-34.0); Mean Corpuscular HGB Conc 34.2 g/dL (31.5-36.5); Mean Corpuscular Volume 82 fL (80-100); Mean Platelet Volume 8.4 fL (9.1-12.4); NEUTROPHILS ABSOLUTE AUTO 6.98 K/mm3 (1.96-9.15); NEUTROPHILS PERCENT AUTO 70 % (41-73); Platelet Count 242 K/mm3 (150-400); RDW Coefficient Variation 13.9 % (11.7-14.2); RDW Standard Deviation 41.3 fL (35.1-46.3); Red Blood Cell Count 4.13 M/mm3 (3.80-5.20); White Blood Cell Count 9.91 K/mm3 (4.00-11.30)
[2022-01-25 04:39] LABS: Vancomycin, Trough 19.1 ug/mL (5.0-10.0)
[2022-01-25 04:44] LABS: Albumin, Blood 2.5 g/dL (3.4-5.0); Albumin/Globulin Ratio 0.9 (0.8-1.8); Bilirubin, Total 0.6 mg/dL (0.1-1.0); Bun/Creatinine Ratio 8.5 (12.0-20.0); Calcium, Blood 7.9 mg/dL (8.5-10.1); Creatinine, Blood 0.7 mg/dL (0.40-1.00); Globulin, Blood 2.8 g/dL (2.2-4.0); Magnesium, Blood 1.5 mg/dL (1.6-2.4); Phosphorus, Blood 2.3 mg/dL (2.5-4.9); Potassium, Blood 3.4 mmol/L (3.5-5.5); Total Protein, Blood 5.3 g/dL (6.4-8.2)
--- NOTE | 2022-01-25 06:09 | NUR ---
SHIFT SUMMARY: PT. REMAINED STABLE OVERNIGHT. PT. HAS BEEN OFF SEDATION SINCE 01/24 AND IS STILL UNABLE TO FOLLOW COMMANDS BUT SOME NON-PURPOSEFUL MOVEMENTS WERE NOTED. PT. IS STILL ON A VENTILATOR WITH SETTINGS AT 14/400/30/5. PT. REMAINED IN NSR THROUGHOUT THE NIGHT, WHILE HYPERTENSIVE. PRN HTN MEDS WERE ADMINISTERED PER EMAR. PT. STILL HAS WHITLEY CATHETER DRAINING TO GRAVITY AND HAS HAD 2100 UOP OVERNIGHT. PT. HAS TF GOING NOW AT GOAL. PT. IS RESTING COMFORTABLY IN ROOM.
--- NOTE | 2022-01-25 16:46 | NUR ---
SHIFT SUMMARY NO ACUTE CHANGES THIS SHIFT. PT REMAINS INTUBATED AND SEDATED. VENT SETTINGS REMAIN AC 14, TV 400, PEEP 5, FIO2 30%. PT WITH COPIOUS AMOUNT OF THIN CLEAR ETT SECREATIONS THIS SHIFT. PT OFF SEDATION THROUGHOUT THE MORNING, BUT BECAME TACHYPNIC AND ASYNCHRONOUS WITH THE VENT. PROPOFOL STARTED AND HAS REMAINED AT 20 MCG/KG/MIN. PT HYPERTENSIVE THIS SHIFT, PT MED PER EMAR WITH HYDRALAZINE WITH GOOD EFFECT. PRIOR TO SEDATION BEING STARTED, PT DID NOT WAKE TO VERBAL OR NOXIOUS STIMULI. PT DOES WITHDRAW EXTREMITIES TO NOXIOUS STIMULI. OGT IN PLACE WITH TF INFUSING AT 50 ML/HR GOAL RATE. WHITLEY TEMP PROBE IN PLACE WITH CLEAR YELLOW URINE OUTPUT NOTED. RECTAL TUBE PLACED, PT WITH INCONTINENT LIQUID BM'S. SBW RESTRAINTS REMAIN IN PLACE. NO SEIZURE LIKE ACTIVITY NOTED THIS SHIFT. WILL CONTINUE TO MONITOR AND REPORT OFF TO ONCOMING RN.
[2022-01-26 04:06] LABS: BASOPHILS ABSOLUTE AUTO 0.04 K/mm3 (0.00-0.23); BASOPHILS PERCENT AUTO 0 % (0-2); EOSINOPHILS ABSOLUTE AUTO 0.22 K/mm3 (0.00-0.68); EOSINOPHILS PERCENT AUTO 2 % (0-6); Hemoglobin 10.8 g/dL (11.5-16.0); IMMATURE GRAN ABSOLUTE AUTO 0.04 K/mm3 (0.00-0.10); IMMATURE GRAN PERCENT AUTO 0 % (0-1); LYMPHOCYTES ABSOLUTE AUTO 1.46 K/mm3 (0.84-5.20); LYMPHOCYTES PERCENT AUTO 15 % (21-46); MONOCYTES PERCENT AUTO 8 % (4-13); Mean Corpuscular HGB 27.8 pg (26.0-34.0); Mean Corpuscular HGB Conc 34.8 g/dL (31.5-36.5); Mean Corpuscular Volume 80 fL (80-100); Mean Platelet Volume 8.4 fL (9.1-12.4); NEUTROPHILS ABSOLUTE AUTO 7.11 K/mm3 (1.96-9.15); NEUTROPHILS PERCENT AUTO 74 % (41-73); Platelet Count 237 K/mm3 (150-400); RDW Coefficient Variation 14.3 % (11.7-14.2); RDW Standard Deviation 41.1 fL (35.1-46.3); Red Blood Cell Count 3.89 M/mm3 (3.80-5.20); White Blood Cell Count 9.67 K/mm3 (4.00-11.30)
[2022-01-26 04:27] LABS: Albumin, Blood 2.3 g/dL (3.4-5.0); Albumin/Globulin Ratio 0.7 (0.8-1.8); Bilirubin, Total 0.3 mg/dL (0.1-1.0); Calcium, Blood 7.9 mg/dL (8.5-10.1); Creatinine, Blood 0.64 mg/dL (0.40-1.00); Globulin, Blood 3.1 g/dL (2.2-4.0); Magnesium, Blood 1.6 mg/dL (1.6-2.4); Potassium, Blood 3.1 mmol/L (3.5-5.5); Total Protein, Blood 5.4 g/dL (6.4-8.2); Vancomycin, Trough 16.5 ug/mL (5.0-10.0)
--- NOTE | 2022-01-26 05:43 | NUR ---
SHIFT SUMMARY: PT. REMAINED STABLE OVERNIGHT, PT. IS SEDATED ON 30 AND IS TOLERATING VENTILATOR. PT. DOES ROUSE TO NOXIOUS STIMULI AND WITHDRAWS FROM PAIN. ETT SECRETIONS HAVE BEEN THICK AND MODERATE, VENT SETTINGS ARE 14/400/30/5 AND PT. IS SATURATING WELL ON THOSE SETTINGS. PT. HAS BEEN IN NSR THROUGHOUT THE NIGHT AND PRNS WERE GIVEN FOR HTN. PT. STILL HAS TF GOING AT GOAL RATE AND RECTAL TUBE IN PLACE PATENT AND DRAINING. WHITLEY IS STILL PATENT AND DRAINING, PT. HAD OVER 1L UOP OVERNIGHT. PT. SEEMS TO BE RESTING WELL AT THIS TIME.
--- NOTE | 2022-01-26 17:52 | NUR ---
SHIFT SUMMARY NO ACUTE CHANGES THIS SHIFT. PT REMAINS INTUBATED WITH VENT SETTINGS AC 14, TV 400, PEEP 5, FIO2 30%. PT CONTINUES TO HAVE COPIOUS THIN CLEAR ETT SECRETIONS WITH SUCTION. PT WITH SEDATION OFF MOST OF THE DAY. PT OPENS EYES TO VERBAL STIMULI AND WITH UPWARD GAZE. PT DOES NOT TRACK OR LOOK TOWARDS VOICE. PT DOES NOT FOLLOW ANY COMMANDS. NS INFUSING AT 125 ML/HR AND NS TKO. OGT IN PLACE WITH TF INFUSING AT GOAL RATE. WHITLEY TEMP PROBE REMAINS IN PLACE WITH LARGE AMOUNT OF CLEAR YELLOW OUTPUT. RECTAL TUBE IN PLACE WITH LIQUID BROWN OUTPUT NOTED. PT SPOUSE AT BEDSIDE THIS MORNING. VITAL SIGNS STABLE. PT HYPERTENSIVE AND MED PER EMAR. SBW RESTRAINTS IN PLACE. WILL CONTINUE TO MONITOR AND REPORT OFF TO ONCOMING RN.
[2022-01-27 03:58] LABS: Albumin, Blood 2.1 g/dL (3.4-5.0); Anion Gap 6 mmol/L (6-16); Blood Urea Nitrogen 10 mg/dL (8-24); Bun/Creatinine Ratio 16.2 (12.0-20.0); CO2, Blood 26 mmol/L (21-32); Chloride, Blood 109 mmol/L (98-108); Creatinine, Blood 0.62 mg/dL (0.40-1.00); Glomerular Filtration Rate 97 (60-); Glucose, Blood 115 mg/dL (70-99); Phosphorus, Blood 2.5 mg/dL (2.5-4.9); Potassium, Blood 3.4 mmol/L (3.5-5.5); Sodium, Blood 141 mmol/L (136-145)
--- NOTE | 2022-01-27 06:08 | NUR ---
SHIFT SUMMARY: PT. REMAINED STABLE OVERNIGHT, SEDATION HAS BEEN OFF SINCE DAYSHIFT AND PT. HAS NOT BEEN ABLE TO AWAKEN OR FOLLOW COMMANDS. VENT SETTINGS ARE THE SAME AT 14/400/30/5 AND PT. IS SATTING WELL WITH THOSE SETTINGS. PT. HAS BEEN NSR FOR MOST OF THE NIGHT HAVING A BRIEF EPISODE OF TACHYCARDIA WHICH RESOLVED WITH PAIN MEDICATION PRN, BP HAS BEEN WNL ALL NIGHT. PT. STILL HAS TF GOING AT GOAL RATE OF 50 AND A RECTAL TUBE THAT IS PATENT AND DRAINING TO GRAVITY. PT. HAS WHITLEY DRAINING TO GRAVITY WELL THAT IS DRAINING YELLOW URINE. PT. HAS BECOME MORE EDEMATOUS ESPECIALLY IN THE HANDS, AND HER SKIN HAS BECOME MORE BRUISED AND PT. SEEMS TO BE BLEEDING MORE FROM SKIN.
--- NOTE | 2022-01-27 17:16 | NUR ---
SHIFT SUMMARY PT REMAINS INTUBATED AND NOT SEDATED. VENT SETTINGS UNCHANGED AT AC 14, TV 400, PEEP 5, FIO2 30%. PT CONTINUES TO HAVE COPIOUS CLEAR, THIN, ETT SECRETIONS. PT WITH STRONG COUGH AND GAG REFLEX. PT OPENS EYES TO VERBAL STIMULI AND HAS UPWARD GAZE, BUT DOES NOT TRACK OR LOOK TO VOICE. PT DOES NOT FOLLOW ANY COMMANDS. PT MORE RESTLESS THIS AFTERNOON, PT MOVING ALL EXTREMITIES WELL. OGT REMAINS IN PLACE WITH TF INFUSING AT GOAL RATE. NS INFUSING AT 125 ML/HR AND NS TKO THROUGH PIV AND PG TO FAITH. WHITLEY TEMP PROBE IN PLACE WITH CLEAR YELLOW OUTPUT NOTED. RECTAL TUBE REMAINS IN PLACE WITH LIQUID BROWN OUTPUT NOTED. EDEMA TO HANDS REMAINS UNCHANGED. VITAL SIGNS STABLE. SBW RESTRAINTS REMAIN IN PLACE. EEG DONE THIS AFTERNOON, PLANS FOR HEAD CT TOMORROW. PT SPOUSE AT BEDSIDE THIS AFTERNOON AND UPDATED TO PLAN OF CARE. WILL CONTINUE TO MONITOR AND REPORT OFF TO ONCOMING RN.
[2022-01-27 17:52] LABS: Anion Gap 5 mmol/L (6-16); Blood Urea Nitrogen 9 mg/dL (8-24); Bun/Creatinine Ratio 15.4 (12.0-20.0); CO2, Blood 26 mmol/L (21-32); Calcium, Blood 8.2 mg/dL (8.5-10.1); Chloride, Blood 110 mmol/L (98-108); Creatinine, Blood 0.59 mg/dL (0.40-1.00); Glomerular Filtration Rate 98 (60-); Glucose, Blood 137 mg/dL (70-99); Phosphorus, Blood 2.9 mg/dL (2.5-4.9); Potassium, Blood 3.6 mmol/L (3.5-5.5); Sodium, Blood 141 mmol/L (136-145)
--- NOTE | 2022-01-27 19:00 | NUR ---
ASSUMED CARE PT INTUBATED W/ NO CONTINUOUS SEDATION. AC/VC 14/400/5/30%. NS 125ML/HR. PT WITHDRAWS FROM NOXIOUS STIMULI, BUT DOES NOT FOLLOW COMMANDS. PT RESTLESS IN BED, SHIFTING HIPS SIDE TO SIDE, AND KICKING LEGS. OPENS EYES TO VERBAL STIMULI, DOES NOT TRACK, OR FOLLOW COMMANDS. SR 90'S. HYPERTENSION 190'S, PRN LABETALOL GIVEN. OTHER VSS. OGT IN PLACE W/ TF. SCATTERED BRUISING AND SKIN TEARS ON EXTREMITIES. SEE SHIFT ASSESSMENT FOR FULL ASSESSMENT. WHITLEY PATENT AND DRAINING TO GRAVITY. RECTAL TUBE IN PLACE.
--- NOTE | 2022-01-27 23:19 | NUR ---
CALL TO MD CALL TO DR WRIGHT REGARDING PT RESTLESSNESS IN BED, KICKING LEGS, AND GRIMACING. ORDER RECEIVED TO INCREASE FENTANYL 50MG TO Q2.
--- NOTE | 2022-01-28 01:58 | NUR ---
CALL TO MD CALL MADE TO DR BROWN REGARDING PT HAVING MORE COARSE LUNG SOUNDS, MORE EDEMA, AND NEW WEEPING ON L ARM. ORDER RECEIVED TO STOP FLUIDS AT THIS TIME.
[2022-01-28 05:28] LABS: PCO2 Arterial 43.1 mmHg (35-45); PO2 Arterial 101 mmHg (80-100); pH Blood Arterial 7.42 (7.35-7.45)
[2022-01-28 05:29] LABS: BASOPHILS ABSOLUTE AUTO 0.03 K/mm3 (0.00-0.23); BASOPHILS PERCENT AUTO 0 % (0-2); EOSINOPHILS ABSOLUTE AUTO 0.25 K/mm3 (0.00-0.68); EOSINOPHILS PERCENT AUTO 3 % (0-6); Hematocrit 25.4 % (33.0-51.0); Hemoglobin 8.4 g/dL (11.5-16.0); IMMATURE GRAN ABSOLUTE AUTO 0.03 K/mm3 (0.00-0.10); IMMATURE GRAN PERCENT AUTO 0 % (0-1); LYMPHOCYTES ABSOLUTE AUTO 1.67 K/mm3 (0.84-5.20); LYMPHOCYTES PERCENT AUTO 22 % (21-46); MONOCYTES ABSOLUTE AUTO 0.73 K/mm3 (0.16-1.47); MONOCYTES PERCENT AUTO 9 % (4-13); Mean Corpuscular HGB 27.6 pg (26.0-34.0); Mean Corpuscular HGB Conc 33.1 g/dL (31.5-36.5); Mean Corpuscular Volume 84 fL (80-100); NEUTROPHILS ABSOLUTE AUTO 5.07 K/mm3 (1.96-9.15); NEUTROPHILS PERCENT AUTO 65 % (41-73); RDW Coefficient Variation 14.4 % (11.7-14.2); RDW Standard Deviation 43.2 fL (35.1-46.3); Red Blood Cell Count 3.04 M/mm3 (3.80-5.20); White Blood Cell Count 7.78 K/mm3 (4.00-11.30)
[2022-01-28 05:43] LABS: Mean Platelet Volume 9.1 fL (9.1-12.4)
[2022-01-28 05:44] LABS: Albumin, Blood 1.9 g/dL (3.4-5.0); Anion Gap 5 mmol/L (6-16); Blood Urea Nitrogen 8 mg/dL (8-24); Bun/Creatinine Ratio 13.8 (12.0-20.0); CO2, Blood 28 mmol/L (21-32); Calcium, Blood 8.1 mg/dL (8.5-10.1); Chloride, Blood 108 mmol/L (98-108); Creatinine, Blood 0.58 mg/dL (0.40-1.00); Glomerular Filtration Rate 99 (60-); Glucose, Blood 129 mg/dL (70-99); Magnesium, Blood 1.5 mg/dL (1.6-2.4); Phosphorus, Blood 2.7 mg/dL (2.5-4.9); Potassium, Blood 3.5 mmol/L (3.5-5.5); Sodium, Blood 141 mmol/L (136-145)
[2022-01-28 05:55] LABS: Platelet Count 233 K/mm3 (150-400)
--- NOTE | 2022-01-28 06:49 | NUR ---
SHIFT SUMMARY PT REMAINS INTUBATED W/ NO SEDATION. VENT SETTINGS UNCHANGED. VSS, HYPERTENSIVE AT TIMES. MAX TEMP 100.0. PT NOT FOLLOWING COMMANDS, AND RESTLESS T/O NIGHT. ATIVAN AND FENTANYL GIVEN W/ GOOD RESPONSE. OGT IN PLACE W/ TF AT GOAL. FLUIDS STOPPED, SEE PREVIOUS NOTES. BILATERAL ARMS WEEPING. DIFFICULT LAB DRAW, RADIOLOGIC TECHNOLOGY PROGRAM DIRECTOR REPORTED THAT CLEAR FLUID WAS NOTED WHEN DRAWING LABS. WHITLEY DRAINING TO GRAVITY. RECTAL TUBE IN PLACE, NO OUTPUT THIS SHIFT.
--- NOTE | 2022-01-28 07:30 | NUR ---
ASSUMED CARE: PT RESTING IN BED, RESTLESS AT TIMES. INTUBATED, SETTINGS AC 14/400/5/30%. 8.0 SIZED ETT. 23 AT THE TEETH. FREQUENT THIN YELLOW/PASTOR SECRETIONS. SINUS TACH AT [address] OG IN [address] FOR TF. RECTAL TUBE WITH MINIMAL OUTPUT. WHITLEY CATH DRAINING CLEAR, YELLOW URINE. BILATERAL WRIST RESTRAINTS. NO ACUTE NEEDS AT THIS TIME.
--- NOTE | 2022-01-28 07:44 | NUR ---
PT BECOMING RESTLESS. ADMINISTERED 2MG IV ATIVAN. OPENS EYES TO NAME. NO PURPOSEFUL MOVEMENT OTHERWISE.
--- NOTE | 2022-01-28 08:55 | NUR ---
PT'S CALLED AND WAS GIVEN AN UPDATE. ASKED ABOUT EEG RESULTS AND RELAYED TO HIM THAT THOSE ARE NOT AVAILABLE YET. ASKED WHEN DR WOULD COME. LET HIM KNOW THAT WHEN HE CAME TO SEE PT WE COULD LET DRS KNOW HE WAS HERE FOR UPDATE. NO FURTHER NEEDS OR CONCERNS AT THIS TIME.
--- NOTE | 2022-01-28 12:38 | NUR ---
PT TAKEN TO CT WITH RT ASSISTANCE AND RETURNED TO ROOM. COORDINATOR AT BEDSIDE EVALUATING IV ACCESS FOR MULTIPLE IV MED ORDERS THAT ARE NOT COMPATIBLE
--- NOTE | 2022-01-28 15:11 | NUR ---
PT RESTARTED ON PROPOFOL FOR SEDATION DUE TO AGITATION AND FREQUENT USEAGE OF PRNS. STARTING DOSE OF 15MCG/KG. DR MONTOYA ALSO ORDERED IV LASIX FOR DIURESIS WHICH RESULTED IN 1600ML OUT AFTER 2.5 HRS. URINE WAS VERY CLEAR AND WAS SHOWN TO DR MONTOYA. PT'S LEFT ARM RESTRAINED TO TOP OF BED FOR POSITIONING OF POWERGLIDE DUE TO SITE BEING POSITIONAL FOR MEDICATIONS. DUE TO EDEMA IN ARMS, UNABLE TO FIND NEW SITE.
--- NOTE | 2022-01-28 15:36 | NUR ---
REVIEWED CT RESULT WITH DR MONTOYA. CALL TO PT'S TO GIVE HIM AN UPDATE AND MAKE HIM AWARE THAT SHE IS WAKING MORE THIS AFTERNOON THAN THIS MORNING.
[2022-01-28 16:43] LABS: Magnesium, Blood 2.1 mg/dL (1.6-2.4); Potassium, Blood 3.4 mmol/L (3.5-5.5)
--- NOTE | 2022-01-28 18:38 | NUR ---
SHIFT SUMMARY: PT REMAINS INTUBATED WITH VENT SETTINGS 14/400/5/30%. PROPOFOL IN PLACE FOR SEDATION AT 25MCG/KG. PT'S ARMS EDEMATOUS AND WEEPING. PG IN PLACE FOR IV ACCESS. BOTTOM WHEELER AWARE THAT NEW SITE IS NEEDED. DIURESING PT WITH GOOD RESULT. WHITLEY CATH AND RECTAL TUBE IN PLACE. PT'S WAS GIVEN UPDATE THIS SHIFT AND WENT HOME FOR THE NIGHT. STATES HE WILL RETURN TOMORROW WITH HIS SISTER. NO FURTHER NEEDS OR CONCERNS AT THIS TIME.
[2022-01-29 04:01] LABS: BASOPHILS ABSOLUTE AUTO 0.04 K/mm3 (0.00-0.23); BASOPHILS PERCENT AUTO 1 % (0-2); EOSINOPHILS ABSOLUTE AUTO 0.28 K/mm3 (0.00-0.68); EOSINOPHILS PERCENT AUTO 3 % (0-6); Hematocrit 31.6 % (33.0-51.0); Hemoglobin 10.5 g/dL (11.5-16.0); IMMATURE GRAN ABSOLUTE AUTO 0.03 K/mm3 (0.00-0.10); IMMATURE GRAN PERCENT AUTO 0 % (0-1); LYMPHOCYTES ABSOLUTE AUTO 2.14 K/mm3 (0.84-5.20); LYMPHOCYTES PERCENT AUTO 26 % (21-46); MONOCYTES ABSOLUTE AUTO 0.74 K/mm3 (0.16-1.47); MONOCYTES PERCENT AUTO 9 % (4-13); Mean Corpuscular HGB 27.1 pg (26.0-34.0); Mean Corpuscular HGB Conc 33.2 g/dL (31.5-36.5); Mean Corpuscular Volume 82 fL (80-100); Mean Platelet Volume 9.3 fL (9.1-12.4); NEUTROPHILS ABSOLUTE AUTO 4.92 K/mm3 (1.96-9.15); NEUTROPHILS PERCENT AUTO 60 % (41-73); Platelet Count 330 K/mm3 (150-400); RDW Coefficient Variation 14.1 % (11.7-14.2); RDW Standard Deviation 41.2 fL (35.1-46.3); Red Blood Cell Count 3.87 M/mm3 (3.80-5.20); White Blood Cell Count 8.15 K/mm3 (4.00-11.30)
[2022-01-29 05:05] LABS: Bun/Creatinine Ratio 19.5 (12.0-20.0); Calcium, Blood 9.1 mg/dL (8.5-10.1); Creatinine, Blood 0.72 mg/dL (0.40-1.00); Magnesium, Blood 2.2 mg/dL (1.6-2.4); Potassium, Blood 3.1 mmol/L (3.5-5.5)
--- NOTE | 2022-01-29 05:19 | NUR ---
JOHANNY MINAYA PT IS INTUBATED W/ETT INTACT AND PATENT TO THE VENT. SHE RESPONDS TO TACTILE STIMULI BUT DOES NOT FOLLOW COMMANDS OR OPEN HER EYES. SHE HAS TUBE FEEDING INFUSING AT GOAL. SHE HAS HAD A MODERATE AMOUNT OF SECRETIONS OVERNIGHT, OCCASIONALLY COUGHING AND REQUIRING SUCTIONING. SHE HAS BEEN ST ON THE MONITOR W/BP NORMAL W/HTN AT TIMES. OXYGEN SAT HAVE REMAINED >95%. SHE HAS A RECTAL TUBE AND A WHITLEY CATHETER, BOTH ARE INTACT AND DRAINING PROPERLY. SHE IS SEDATED ON PROPOFOL. SHE HAS VERY MINIMAL IV ACCESS W/ONLY ONE PG IN THE LEFT UPPER ARM. SHE HAS 4+ EDEMA ON HER UPPER EXTREMITIES W/SOME WEEPING NOTED. NO ACUTE CHANGES OVERNIGHT.
--- NOTE | 2022-01-29 11:21 | NUR ---
ASSUMED CARE OF PATIENT AT 0700, PT ON THE VENTILATOR AC 14/400/5/35% WITH GOOD SATS, VSS-ALTHOUGH BP IS ELEVATED. PT IS NOT RESPONDING OTHER THAN GRIMACING WITH ORAL CARE. PT HAS TUBE FEEDING VIA OG AT 50ML/HR, PROPOFOL @ 30MCG/KG WAS DECREASED TO 25MCG/KG TO TITRATE DOWN TO WAKEFULNESS. ABD IS SOFT ROUND NON-TENDER, WHITLEY TO GRAVITY DRAINAGE, RECTAL TUBE IN PLACE. PEDRITO AREA IS REDDENED, PINK CREAM AND POWDER APPLIED. UPPER ARMS ECCHYMOTIC AND FRAGILE WITH SKIN TEARS AND SWELLING. FAITH PG IN PLACE, PICC LINE PLACED IN RIGHT UPPER ARM. SISTER ARRIVES FROM [place], DISCUSSION WITH COSMETIC DENTIST, ALFRED. IN TO GIVE UPDATE. PT NOTED TO HAVE BEEN IN A [facility] ABOUT 6 MOS AGO WITH FX TO THE RIGHT SHOULDER AND INJURY TO SPLEEN. SISTER ALSO REPORTS THAT PT HAD A MASS IN THE FRONT OF HER HEAD THAT WAS REMOVED >10YEARS AGO INICH THEY HAD TO GO THROUGH HER SKULL. REPORTED TO . ALSO ASKED THAT ALL SEDATION BE TURNED OFF AND ALLOW PT TO WAKE UP. PT HAS SINCE OPENED HER EYES AND LOOKED AT HER SISTER, UNABLE TO FOCUS. ABLE TO OPEN EYES ON COMMAND FOR SISTER.
--- NOTE | 2022-01-29 14:19 | NUR ---
Case Conference: Met with pt's , sister in law at bedside. Pt appears to be waking up slightly today, and her states it is very distressing to see her on the ventilator. manager style reports could benefit from supportive visits, as well as information on advanced care planning. He appears nervous, pacing in the room at this visit, states he is interested in talking, just not "right now", asks if "we can talk later today" after his visit. Admits he is "feeling overwhelmed". I tell him, "Of course".
--- NOTE | 2022-01-29 15:30 | NUR ---
VARINDER IS MORE ALERT, SHE APPEARS TO BE LOOKING TOWARD THE VOICE, ALTHOUGH SHE IS STILL NOT FOLLOWING COMMANDS. SHE HAS BEEN PLACED ON SPONTANEOUS FOR HER BREATHING WITH THE VENTILATOR. SHE IS NOT YET FOLLOWING COMMANDS. SHE IS MOVING ALL EXTREMITIES, HER HANDS REMAIN RESTRAINED FOR SAFETY OF THE ETT. SHE CONTINUES TO COUGH WITH CLEAR THIN SECRETIONS RETURNED INLINE SUCTION TUBING.
--- NOTE | 2022-01-29 16:50 | NUR ---
1620 PT BEGAN ALARMING FREQUENTLY THAT SHE WASN'T PULLING BIG ENOUGH VOLUMES. PT'S SATS AND ETCO2 REMAINED STABLE, R/T CALLED AND PT RETURNED TO VC+, RATE 14, 400, 5, 35%. PT IS QUIETLY RESTING. APPEARS TO BE MORE COMFORTABLE ON HER LEFT SIDE.
--- NOTE | 2022-01-29 18:37 | NUR ---
PT HAS BEEN MORE ALERT, HER EYES DO NOT FIX ON PERSON SPEAKING TO HER. SHE IS MOVING ALL EXTREMITIES, HIPS AND LEGS, HEAD. SHE IS NOT FOLLOWING COMMANDS. COUGH CONTINUES TO ILLICIT MODERATE AMOUNT OF THIN CLEAR/WHITISH RETURN. LUNGS REMAIN COARSE, ABDOMEN SOFT, NON TENDER, BOWEL TONES ACTIVE, TUBE FEEDING @ 50ML/HR, NO RESIDUAL WHEN CHECKED. WIHTLEY WITH GOOD URINE OUTPUT W/ DIURESIS. RECTAL TUBE CONTINUES TO DRAIN WELL, FILLS BAG WITH THE DUAL DOSE OF LACTULOSE. HEART RATE IS TACHY WITHOUT SEDATION, BP STABLE. WILL CONTINUE TO MONITOR AND TREAT, REPORTING OFF TO NEXT SHIFT WHEN ABLE.
--- NOTE | 2022-01-29 19:22 | NUR ---
ASSUMPTION OF CARE PT IN VENTILATED VIA ETT, COUGH PRESENT W/MODERATE SECRETIONS REMOVED VIA IN LINE SUCTIONING. EYES ARE OPEN BUT PT DOES NOT TRACK VOICE NOR FOLLOW COMMANDS. SHE IS MOVING HER EXTREMITIES BUT WITHOUT INTENTION. SHE HAS TUBE FEEDINGS INFUSING AT GOAL, TOLERATING WELL. SHE HAS A WHITLEY CATHETER THAT IS INTACT, PATENT AND DRAINING YELLOW URINE TO GRAVITY BELOW THE LEVEL OF THE BLADDER. SHE HAS A RECTAL TUBE THAT IS INTACT AND DRAINING BROWN LIQUID STOOL. SHE HAS A PICC LINE IN THE LEFT UPPER ARM THAT WAS PLACED ON PRIOR SHIFT TODAY. SHE IS ST ON THE MONITOR W/BP WNL LIMITS. SLIGHTLY FEBRILE AT THIS TIME. NO S/S OF ACUTE DISTRESS NOTED AT TIME OF ASSUMPTION OF CARE.
[2022-01-30 05:47] LABS: BASOPHILS ABSOLUTE AUTO 0.05 K/mm3 (0.00-0.23); BASOPHILS PERCENT AUTO 1 % (0-2); EOSINOPHILS ABSOLUTE AUTO 0.22 K/mm3 (0.00-0.68); EOSINOPHILS PERCENT AUTO 2 % (0-6); Hematocrit 32.4 % (33.0-51.0); Hemoglobin 10.7 g/dL (11.5-16.0); IMMATURE GRAN ABSOLUTE AUTO 0.08 K/mm3 (0.00-0.10); IMMATURE GRAN PERCENT AUTO 1 % (0-1); LYMPHOCYTES ABSOLUTE AUTO 2.15 K/mm3 (0.84-5.20); LYMPHOCYTES PERCENT AUTO 21 % (21-46); MONOCYTES PERCENT AUTO 11 % (4-13); Mean Corpuscular HGB 27.9 pg (26.0-34.0); Mean Corpuscular Volume 85 fL (80-100); NEUTROPHILS ABSOLUTE AUTO 6.59 K/mm3 (1.96-9.15); NEUTROPHILS PERCENT AUTO 65 % (41-73); Platelet Count 313 K/mm3 (150-400); RDW Coefficient Variation 14.4 % (11.7-14.2); RDW Standard Deviation 44.1 fL (35.1-46.3); Red Blood Cell Count 3.83 M/mm3 (3.80-5.20); White Blood Cell Count 10.19 K/mm3 (4.00-11.30)
[2022-01-30 06:13] LABS: Albumin, Blood 2.4 g/dL (3.4-5.0); Anion Gap 7 mmol/L (6-16); Blood Urea Nitrogen 31 mg/dL (8-24); Bun/Creatinine Ratio 34.6 (12.0-20.0); CO2, Blood 33 mmol/L (21-32); Calcium, Blood 9.3 mg/dL (8.5-10.1); Chloride, Blood 106 mmol/L (98-108); Glomerular Filtration Rate 70 (60-); Glucose, Blood 149 mg/dL (70-99); Phosphorus, Blood 4.5 mg/dL (2.5-4.9); Potassium, Blood 3.5 mmol/L (3.5-5.5); Sodium, Blood 146 mmol/L (136-145)
--- NOTE | 2022-01-30 06:33 | NUR ---
SHIFT SUMMERY PT WAS VERY RESTLESS AND AGITATED AND THE BEGININING OF THE SHIFT. SPOKE TO DR LOPEZ WHO STATED TO RESTART PROPOFOL. PT HAS REQUIRED FREQUENT SUCTIONING W/MODERATE AMOUNT OF SECRETIONS. RECTAL TUBE HAD 1 LITRE OF OUTPUT. WHITLEY CATHETER DRAINING YELLOW URINE. TF INFUSING W/OUT ISSUE. PT WAS FEBRILE EARLIER IN THE SHIFT AND WAS GIVEN TYLENOL AND FEVER REDUCED. SHE WILL OPEN EYES BUT DOES NOT FOLLOW COMMANDS. SHE HAS BEEN ST ON THE MONITOR, BP HAS BEEN WNL. SHE REMAINS INTUBATED W/ETT INATCT AND PATENT TO THE VENT W/BILATERAL BREATH SOUNDS PRESENT.
--- NOTE | 2022-01-30 16:46 | NUR ---
SHIFT SUMMARY PT REMAINS INTUBATED AND NOT SEDATED MOST OF THIS SHIFT. PROPOFOL PLACED ON STANDBY THIS MORNING AND HAS REMAINED OFF THROUGHOUT THE DAY. PT SPONTANEOUSLY OPENS EYES AND TRACKS WHEN IN ROOM. PT DOES NOT FOLLOW ANY DIRECTIONS. PT MOVES ALL EXTREMITIES WELL. PT PLACED ON PRESSURE SUPPORT THIS MORNING INITIALLY 10/5, BUT REQUIRED 15/5, FIO2 30% THROUGHOUT THE DAY. PT CONTINUES TO HAVE LARGE AMOUNT OF THIN ETT SECRETIONS WITH SUCTION. PICC TO MAZIN REMAINS C/D/I WITH NS INFUSING TKO. PG TO FAITH REMAINS C/D/I. OGT REMAINS IN PLACE WITH TF INFUSING AT GOAL RATE. WHITLEY TEMP PROBE IN PLACE WITH CLEAR YELLOW OUTPUT NOTED. PT PULLED 2 RECTAL TUBES THIS SHIFT WITH FEET/LEGS. PT CONTINUES TO HAVE LIQUID STOOL NOTED. SBW RESTRAINTS REMAIN IN PLACE. VITAL SIGNS STABLE. PT SPOUSE AT BEDSIDE FOR BREIF TIME THIS AFTERNOON. WILL CONTINUE TO MONITOR AND REPORT OFF TO ONCOMING RN.
--- NOTE | 2022-01-30 19:38 | NUR ---
ASSUMPTION OF CARE PT REMAINS INTUBATED VIA ETT. BILATERAL BREATH SOUNDS PRESENT. OXYGEN SAT 97%. SHE IS ST ON THE MONITOR W/BP WNL. TF INFUSING AT GOAL. RECTAL TUBE AND WHITLEY CATH IN PLACE. NO SEDATION GTT INFUSING AT THIS TIME. PT IS RESTLESS. SHE IS AWAKE W/EYES OPEN BUT NOT FOLLOWING COMMANDS. NO S/S OF ACUTE DISTRESS NOTED AT TIME OF ASSESSMENT.
[2022-01-31 04:05] LABS: BASOPHILS ABSOLUTE AUTO 0.06 K/mm3 (0.00-0.23); BASOPHILS PERCENT AUTO 1 % (0-2); EOSINOPHILS ABSOLUTE AUTO 0.22 K/mm3 (0.00-0.68); EOSINOPHILS PERCENT AUTO 2 % (0-6); Hematocrit 33.1 % (33.0-51.0); Hemoglobin 10.7 g/dL (11.5-16.0); IMMATURE GRAN ABSOLUTE AUTO 0.14 K/mm3 (0.00-0.10); IMMATURE GRAN PERCENT AUTO 1 % (0-1); LYMPHOCYTES ABSOLUTE AUTO 2.89 K/mm3 (0.84-5.20); LYMPHOCYTES PERCENT AUTO 22 % (21-46); MONOCYTES ABSOLUTE AUTO 1.56 K/mm3 (0.16-1.47); MONOCYTES PERCENT AUTO 12 % (4-13); Mean Corpuscular HGB 27.6 pg (26.0-34.0); Mean Corpuscular HGB Conc 32.3 g/dL (31.5-36.5); Mean Corpuscular Volume 85 fL (80-100); Mean Platelet Volume 9.3 fL (9.1-12.4); NEUTROPHILS ABSOLUTE AUTO 8.42 K/mm3 (1.96-9.15); NEUTROPHILS PERCENT AUTO 63 % (41-73); Platelet Count 384 K/mm3 (150-400); RDW Coefficient Variation 14.6 % (11.7-14.2); RDW Standard Deviation 44.7 fL (35.1-46.3); Red Blood Cell Count 3.88 M/mm3 (3.80-5.20); White Blood Cell Count 13.29 K/mm3 (4.00-11.30)
[2022-01-31 04:28] LABS: Creatinine, Blood 0.84 mg/dL (0.40-1.00)
--- NOTE | 2022-01-31 06:33 | NUR ---
SHIFT SUMMERY NO ACUTE CHANGES OVERNIGHT. PT HAS BEEN VERY RESTLESS, SHE DOES SEEM TO MAKE EYE CONTACT AT TIMES BUT IS STILL NOT FOLLOWING COMMANDS. SHE IS HAVING A LARGE AMOUNT OF THIN WHITE SECRETIONS SUCTIONED FROM HER ETT VIA IN LINE SUCTIONING. PT IS RESTRAINED FOR SAFETY.
--- NOTE | 2022-01-31 16:31 | NUR ---
SHIFT SUMMARY PT REMAINS INTUBATED AND MINIMALLY SEDATED WITH PRECEDEX AT 0.5 MCG/KG/HR. VENT SETTINGS AC 14, TV 350, PEEP 5, FIO2 30%. PT CONTINUES TO HAVE COPIOUS THIN CLEAR ETT SECRETIONS WITH SUCTION. PT ON PRESSURE SUPPORT TRIAL FOR SHORT TIME THIS AM, THEN PT WITH PERIODS OF APNEA REQUIRING TO BE SWITCHED BACK TO AC VENT SETTINGS. PT AWAKE MOST OF THIS SHIFT, AND AT TIMES ABLE TO SQUEEZE HANDS UPON COMMAND. PT TRACKS WHEN IN ROOM. PT CONTINUES TO MOVE ALL EXTREMITIES WELL. VITAL SIGNS STABLE. PICC TO MAZIN C/D/I. NS INFUSING TKO. OGT IN PLACE WITH TF INFUSING AT GOAL RATE. WHITLEY TEMP PROBE REMAINS IN PLACE WITH SMALL AMOUNT OF CLEAR YELLOW URINE OUTPUT NOTED. RECTAL TUBE IN PLACE WITH 1300 ML LIQUID BROWN OUTPUT THIS SHIFT. SOFT RESTRAINTS X4 EXTREMITIES REMAIN IN PLACE. PT FAMILY AT BEDSIDE FOR SHORT PERIOD THIS MORNING. WILL CONTINUE TO MONITOR AND REPORT OFF TO ONCOMING RN.
--- NOTE | 2022-01-31 19:15 | NUR ---
ASSUMED CARE OF PT @1900 FROM JANNA BIRD. PT INTUBATED AND AWAKE W/PRECEDEX 0.5MCG/KG/HR. PT WILL NOD OR SHAKE HER HEAD IN RESPONSE TO QUESTIONS AND SQUEEZES HANDS. AC VC 14/350/5/30%, ETT 23@TEETH, RR 20, SPO2 >92%, HR 100-120, SBP 120'S. PICC MAZIN PATENT AND INFUSING. PG FAITH PATENT W/SALINE LOCK. OG TUBE W/TF VITAL HP 50MLS/HR GOAL RATE. TEMP WHITLEY IN PLACE AND DRAINING TO GRAVITY, RECTAL TUBE DRAINING TO GRAVITY. BSWR AND BSAR IN PLACE.
[2022-02-01 04:04] LABS: BASOPHILS ABSOLUTE AUTO 0.05 K/mm3 (0.00-0.23); BASOPHILS PERCENT AUTO 1 % (0-2); EOSINOPHILS ABSOLUTE AUTO 0.23 K/mm3 (0.00-0.68); EOSINOPHILS PERCENT AUTO 2 % (0-6); Hematocrit 29.1 % (33.0-51.0); Hemoglobin 9.2 g/dL (11.5-16.0); IMMATURE GRAN ABSOLUTE AUTO 0.09 K/mm3 (0.00-0.10); IMMATURE GRAN PERCENT AUTO 1 % (0-1); LYMPHOCYTES ABSOLUTE AUTO 2.17 K/mm3 (0.84-5.20); LYMPHOCYTES PERCENT AUTO 22 % (21-46); MONOCYTES ABSOLUTE AUTO 1.02 K/mm3 (0.16-1.47); MONOCYTES PERCENT AUTO 10 % (4-13); Mean Corpuscular HGB 27.6 pg (26.0-34.0); Mean Corpuscular HGB Conc 31.6 g/dL (31.5-36.5); Mean Corpuscular Volume 87 fL (80-100); Mean Platelet Volume 9.6 fL (9.1-12.4); NEUTROPHILS PERCENT AUTO 65 % (41-73); Platelet Count 353 K/mm3 (150-400); RDW Coefficient Variation 14.4 % (11.7-14.2); Red Blood Cell Count 3.33 M/mm3 (3.80-5.20); White Blood Cell Count 10.06 K/mm3 (4.00-11.30)
[2022-02-01 04:30] LABS: Albumin, Blood 2.3 g/dL (3.4-5.0); Anion Gap 6 mmol/L (6-16); Blood Urea Nitrogen 52 mg/dL (8-24); Bun/Creatinine Ratio 82.5 (12.0-20.0); CO2, Blood 27 mmol/L (21-32); Calcium, Blood 9.3 mg/dL (8.5-10.1); Chloride, Blood 111 mmol/L (98-108); Creatinine, Blood 0.63 mg/dL (0.40-1.00); Glomerular Filtration Rate 97 (60-); Glucose, Blood 140 mg/dL (70-99); Magnesium, Blood 2.1 mg/dL (1.6-2.4); Phosphorus, Blood 4.5 mg/dL (2.5-4.9); Potassium, Blood 3.8 mmol/L (3.5-5.5); Sodium, Blood 144 mmol/L (136-145)
--- NOTE | 2022-02-01 05:28 | NUR ---
SUMMARY: NEURO/PSYCH/MOBILITY: PT IS LIGHTLY SEDATED ON PRECEDEX 0.5MCG/KG/HR. RESPONDS TO VERBAL STIMULI. WILL ANSWER YES/NO QUESTIONS WITH NOD/SHAKE OF HEAD. PT WILL SHRUG SHOULDERS IN RESPONSE TO SOME QUESTIONS. PT IS RESTLESS AND ANXIOUS BUT RESTS CALMLY WITH PRN FENTANYL AND ATIVAN. PT DENIES PAIN BUT GRIMACES W/ROM, REPOSITIONING, AND ORAL CARE. COOPERATIVE WITH CARE. PT WILL REACH FOR TUBE WHEN RESTRAINSTS ARE OFF UPPER EXTREMETIES. PT WILL KICK AND MOVE HER FEET AND PULL OUT HER RECTAL TUBE WHEN BLE RESTRAINTS ARE LOOSENED OR REMOVED. TMAX 99.9. PERRL. PT IS MAX ASSIST FOR ALL ADL'S. RESP: INTUBATED. VENT SETTINGS UNCHANGED AC VC 14/350/5/30%. LUNG SOUNDS ARE COARSE THROUGHOUT W/WHEEZES. LARGE AMOUNTS OF THICK WHITE SECRETIONS SUCTIONED FROM ETT. PT COUGHING THROUGHOUT SHIFT. RR <20, SPO2 >92%. CARDIAC: CONTINUOUS CARDIAC MONITORING. HR SR/ST 90-110'S, SBP STABLE BUT WILL DROP INTO 80'S WHEN RESTING AFTER PRN FENTANYL. MAP >65. EDEMA IN BUE. GI: OG TUBE TF VITAL HP 50MLS/HR GOAL RATE. RECTAL TUBE 300MLS LIQUID LIGHT BROWN STOOLS OUT THIS SHIFT. : WHITLEY CATH DRAINING DARK YELLOW URINE TO GRAVITY. 300MLS OUT THIS SHIFT. SKIN: SKIN ASSESSMENT REMAINS UNCHANGED. VERY FRAGILE W/MULTIPLE SKIN TEARS AND BRUISING. SKIN TEAR ON L ELBOW CLEANED AND MEPILEX REPLACED. IV: PG FAITH PATENT W/SALINE LOCK. DOES NOT DRAW. PICC MAZIN PATENT AND INFUSING.
--- NOTE | 2022-02-01 07:00 | NUR ---
Assumed care. Report received from nightshift RN. Pt in bed, ventilated via ETT. Vent settings: Spont 14/5, 30%. Precedex infusing at 0.5 mcg/kg/hr, NS TKO. PICC in MAZIN, wnl. Rectal tube and aguiar catheter in place. Soft wrist and ankle restraints on to protect lines and tubing. VS stable, continue to monitor.
--- NOTE | 2022-02-01 13:08 | NUR ---
Pt extubated by RT at 1032. VS stable, pt tolerated extubation well. On room air, able to speak short sentences w/soft voice.
[2022-02-01 17:03] LABS: PCO2 Arterial 41.5 mmHg (35-45); PO2 Arterial 203 mmHg (80-100); pH Blood Arterial 7.39 (7.35-7.45)
--- NOTE | 2022-02-01 17:55 | NUR ---
Intubation. Pt began to desaturate during the afternoon with increased work of breathing and wheezing/stridor noted in upper lung carmen and airway. Dr. Nash called to room at approximately 1545 after RT administered breathing treatments with no effect, see MAR for details. 4mg Versed given at 1553, 50mg propofol given at 1554 and pt intubated by Dr. Nash. 7.5 ETT, 23cm at the teeth. OG tube inserted. ETT and OG verified by Dr. Nash via chest Xray. Pt vitals within normal range post-intubation.
--- NOTE | 2022-02-01 18:37 | NUR ---
Shift summary. Pt back sedated and on ventilator after short period today extubated. See notes. Vent settings: AC/VC 16/350/5/35%. Precedex infusing at 0.5 mcg/kg/hr, propofol at 20 mcg/kg/min, NS tko. Parada catheter in place, draining to gravity. Pt arousable, able to nod yes and no to questions. VS stable, see assessment/notes for details. Will report off to oncoming RN.
--- NOTE | 2022-02-01 19:15 | NUR ---
ASSUMED CARE OF PT @1900 FROM KENYA BIRD. PT INTUBATED AND SEDATED. WILL OPEN EYES AND RESPOND TO VERBAL STIMULI. SLOW TO FOLLOW COMMANDS. AC VC 16/350/5/35%, RR 16, SPO2 >92%. PROPOFOL 20MCG/KG/MIN, PRECEDEX 0.5MCG/MIN. CONTINUOUS CARDIAC MONITORING. HR 90'S, SBP 110-120, MAP >65. PICC MAZIN PATENT AND INFUSING, PG FAITH PATENT AND INFUSING. OG TF VITAL HP @50MLS/HR GOAL RATE. TEMP WHITLEY PATENT AND DRAINING TO GRAVITY. TKO 10MLS/HR.
[2022-02-02 04:05] LABS: BASOPHILS ABSOLUTE AUTO 0.05 K/mm3 (0.00-0.23); BASOPHILS PERCENT AUTO 1 % (0-2); EOSINOPHILS ABSOLUTE AUTO 0.25 K/mm3 (0.00-0.68); EOSINOPHILS PERCENT AUTO 2 % (0-6); Hematocrit 27.4 % (33.0-51.0); Hemoglobin 8.8 g/dL (11.5-16.0); IMMATURE GRAN ABSOLUTE AUTO 0.14 K/mm3 (0.00-0.10); IMMATURE GRAN PERCENT AUTO 1 % (0-1); LYMPHOCYTES ABSOLUTE AUTO 2.28 K/mm3 (0.84-5.20); LYMPHOCYTES PERCENT AUTO 21 % (21-46); MONOCYTES ABSOLUTE AUTO 0.82 K/mm3 (0.16-1.47); MONOCYTES PERCENT AUTO 8 % (4-13); Mean Corpuscular HGB 27.4 pg (26.0-34.0); Mean Corpuscular HGB Conc 32.1 g/dL (31.5-36.5); Mean Corpuscular Volume 85 fL (80-100); Mean Platelet Volume 9.4 fL (9.1-12.4); NEUTROPHILS ABSOLUTE AUTO 7.28 K/mm3 (1.96-9.15); NEUTROPHILS PERCENT AUTO 67 % (41-73); Platelet Count 347 K/mm3 (150-400); RDW Coefficient Variation 13.8 % (11.7-14.2); RDW Standard Deviation 42.7 fL (35.1-46.3); Red Blood Cell Count 3.21 M/mm3 (3.80-5.20); White Blood Cell Count 10.82 K/mm3 (4.00-11.30)
[2022-02-02 04:22] LABS: Albumin, Blood 2.1 g/dL (3.4-5.0); Anion Gap 5 mmol/L (6-16); Blood Urea Nitrogen 40 mg/dL (8-24); Bun/Creatinine Ratio 62.4 (12.0-20.0); CO2, Blood 28 mmol/L (21-32); Calcium, Blood 9.1 mg/dL (8.5-10.1); Chloride, Blood 107 mmol/L (98-108); Creatinine, Blood 0.64 mg/dL (0.40-1.00); Glomerular Filtration Rate 96 (60-); Glucose, Blood 142 mg/dL (70-99); Phosphorus, Blood 3.1 mg/dL (2.5-4.9); Potassium, Blood 3.7 mmol/L (3.5-5.5); Sodium, Blood 140 mmol/L (136-145)
--- NOTE | 2022-02-02 05:56 | NUR ---
SUMMARY NEURO/PSYCH/MOBILITY: PT SEDATED. PROPOFOL TITRATED DOWN TO SB. PRECEDEX 0.5. TP CALM MOST THROUGHOUT SHIFT. PT ABLE TO NOD/SHAKE HEAD IN RESPONSE TO QUESTIONS BUT SLOW TO ANSWER. PT RESTLESS AND NODDED HEAD YES WHEN ASKED IF SHE WAS IN PAIN. PRN FENTANYL GIVEN. PT MOVES ALL EXTREMETIES WEAKLY. REACHES UP FOR TUBING WHEN REPOSITIONED. BSWR IN PLACE. TMAX 98.9. PERRL. RESP: VENT SETTINGS UNCHANGED. AC VC 16/350/5/35%, RR 16-20, SPO2 >92%, LUNGS REMAIN COARSE, SUCTIONING LARGE AMOUNTS OF PASTOR/WHITE THICK SECRETIONS FROM ETT, SECRETIONS STREAKED W/RED THIS AM. SPUTUM CULTURE SENT. CARDIAC: CONTINUOUS CARDIAC MONITORING. BP SOFT MOST OF SHIFT. SBP 80-90'S, MAP 60-70'S, HR 70-80'S SR. MILD EDEMA NOTED IN UPPER EXTREMETIES. PULSES STRONG IN ALL EXTREMETIES. GI: OG TF VITAL HP @50MLS/HR GOAL RATE. NO BM THIS SHIFT. : WHITLEY CATH PATENT AND DRAINING TO GRAVITY. 250MLS ANGELES URINE OUTPUT THIS SHIFT. SKIN: SKIN ASSESSMENT REMAINS UNCHANGED. MEPILEX PLACED ON SKIN TEARS ON FOREARMS. IV: PG FAITH PATENT W/SALINE LOCK. PICC MAZIN PATENT AND INFUSING.
--- NOTE | 2022-02-02 06:19 | NUR ---
SUMMARY NEURO/PSYCH/MOBILITY: PT HAD NO PURPOSFUL MOVEMENT THROUGH MOST OF THE SHIFT. GRIMACING DURING 0400 OC AND MOVING HEAD SIDE TO SIDE. DOES NOT WITHDRAW FROM NOXIOUS STIMULI OR RESPOND TO VERBAL STIMULI. HIPPUS PUPIL REACTION TO LIGHT. PT IS MAX ASSIST FOR ALL ADL'S. TMAX 104.3 ON RECTAL PROBE. TREATED W/TYLENOL, ICE PACKS, AND FAN. RESP: VENT SETTINGS UNCHANGED. AC VC 30/400/5/40%. DIMINISHED LUNG SOUNDS THROUGHOUT W/SLIGHT WHEEZE ON R SIDE. RR 30'S, SPO2 >92%. SCANT SECRETIONS SUCTIONED FROM ETT. R LATERAL CHEST TUBE CONNECTED TO PLEUR-EVAC W/EMPYEMA AND SEROSANGUINEOUS DRAINAGE. CHEST TUBE BANDAGE REPLACED THIS SHIFT. CARDIAC: HR 60'S, BLOOD PRESSURES SOFT AFTER LABETALOL GIVEN. SBP 80-90'S, MAP 60-70'S. 2+ EDEMA NOTED IN BILATERAL HANDS. GI: OG TF PIVOT @30MLS/HR GOAL RATE. NO BM THIS SHIFT. : WHITLEY CATH DRAINING DARK YELLOW URINE TO GRAVITY. 650MLS OUTPUT THIS SHIFT. SEDIMENT NOTED. SKIN: ASSESSMENT REMAINS UNCHANGED. IV: PG MAZIN PATENT W/TKO 10MLS/HR. PG FAITH PATENT W/ SALINE LOCK.
--- NOTE | 2022-02-02 07:25 | NUR ---
Assumed care. Report received from nightshihanna RN. Pt in bed, ventilated via ETT. Vent settings: AC/VC 16/350/5/30%. Pt alert, able to nod yes/no to questions. PICC errol RETANA. Parada catheter in place. VS stable, will continue to monitor.
--- NOTE | 2022-02-02 18:48 | NUR ---
Shift summary. Pt rested in bed throughout shift. Several hours with family present. Pt alert, sedation at minimal setting, see flowsheet. Able to nod yes/no to questions and use communication board. Dr Love in this afternoon to see pt, plan is for tracheostomy at 9am. VS stable throughout shift, no acute events. Rectal tube inserted for 3x liquid BMs. See assessments for further details. Will report off to nightshift RN.
--- NOTE | 2022-02-02 19:15 | NUR ---
ASSUMED CARE OF PT@1900 FROM ROBERTO CARLOS BIRD. PT INTUBATED AND AWAKE. PRECEDEX 0.2MCG/KG/HR. ABLE TO ANSWER YES/NO QUESTIONS BY SHAKING/NODDING HEAD. AC VC 16/350/5/30%, RR 16, SPO2 >92%. CONTINUOUS CARDIAC MONITORING. HR 80'S, SBP 110-120'S, MAP >65. PICC MAZIN PATENT AND INFUSING. PG FAITH PATENT W/SALINE LOCK. WHITLEY CATH PATENT AND DRAING TO GRAVITY. RECTAL TUBE PATENT AND DRAINING TO GRAVITY.
--- NOTE | 2022-02-03 | NUR ---
UPDATE PT TF ON HOLD FOR AM PROCEDURE. MEPILEX AND BANDAGE CHANGES FOR SKIN TEARS ON BILATERAL FOREARMS.
[2022-02-03 04:23] LABS: Albumin, Blood 1.9 g/dL (3.4-5.0); Anion Gap 6 mmol/L (6-16); Blood Urea Nitrogen 28 mg/dL (8-24); Bun/Creatinine Ratio 46.4 (12.0-20.0); CO2, Blood 26 mmol/L (21-32); Calcium, Blood 8.5 mg/dL (8.5-10.1); Chloride, Blood 109 mmol/L (98-108); Glomerular Filtration Rate 98 (60-); Glucose, Blood 131 mg/dL (70-99); Magnesium, Blood 1.8 mg/dL (1.6-2.4); Phosphorus, Blood 3.6 mg/dL (2.5-4.9); Potassium, Blood 3.4 mmol/L (3.5-5.5); Sodium, Blood 141 mmol/L (136-145)
[2022-02-03 05:40] LABS: BASOPHILS ABSOLUTE AUTO 0.04 K/mm3 (0.00-0.23); BASOPHILS PERCENT AUTO 0 % (0-2); EOSINOPHILS ABSOLUTE AUTO 0.16 K/mm3 (0.00-0.68); EOSINOPHILS PERCENT AUTO 2 % (0-6); Hematocrit 23.6 % (33.0-51.0); Hemoglobin 7.9 g/dL (11.5-16.0); IMMATURE GRAN ABSOLUTE AUTO 0.17 K/mm3 (0.00-0.10); IMMATURE GRAN PERCENT AUTO 2 % (0-1); LYMPHOCYTES ABSOLUTE AUTO 2.29 K/mm3 (0.84-5.20); LYMPHOCYTES PERCENT AUTO 25 % (21-46); MONOCYTES ABSOLUTE AUTO 0.74 K/mm3 (0.16-1.47); MONOCYTES PERCENT AUTO 8 % (4-13); Mean Corpuscular HGB 27.9 pg (26.0-34.0); Mean Corpuscular HGB Conc 33.5 g/dL (31.5-36.5); Mean Corpuscular Volume 83 fL (80-100); Mean Platelet Volume 9.8 fL (9.1-12.4); NEUTROPHILS ABSOLUTE AUTO 5.88 K/mm3 (1.96-9.15); NEUTROPHILS PERCENT AUTO 63 % (41-73); Platelet Count 317 K/mm3 (150-400); RDW Coefficient Variation 13.6 % (11.7-14.2); RDW Standard Deviation 40.9 fL (35.1-46.3); Red Blood Cell Count 2.83 M/mm3 (3.80-5.20); White Blood Cell Count 9.28 K/mm3 (4.00-11.30)
--- NOTE | 2022-02-03 06:13 | NUR ---
SHIFT SUMMARY NO ACUTE EVENTS OVERNIGHT. PT RESTED COMFORTABLY AND WAS ABLE TO COMMUNICATE DISCOMFORT AND NEED FOR PRN FENTANYL. VENT SETTINGS UNCHANGED AC VC 16/350/5/30%, RR 16-20'S, SPO2 >92%. CONTINUOUS CARDIAC MONITORING. OCCASIONAL SOFT BP. PT STILL HAVING LARGE AMOUNTS OF THICK SECRETIONS SUCTIONED THROUGH ETT. COUGHING BUT TOLERATING VENT. PRECEDEX 0.2MCG/KG/HR. WHITLEY CATH DRAINING TO GRAVITY. 400MLS OUTPUT THIS SHIFT. RECTAL TUBE PATENT.
--- NOTE | 2022-02-03 07:41 | NUR ---
Assumed care. Report received from nightshift RN. Pt resting in bed, ventilated via ETT. No changes overnight per offgoing RN. VS stable. Pt alert, able to nod yes/no and communicate needs. VS stable. Pt has scheduled tracheostomy for 0900 this am. Continue to monitor.
--- NOTE | 2022-02-03 09:29 | NUR ---
procedure note: for trach meds given 4 versed at 0920, 50 fentanyl at 0921 4 versed at [address] nash at 0925 normal saline bolus going for 1 liter at 0928 50 of JOSE JUAN 200 mcg of phenylepherine push at 0930 bp 84/55 bp: 0934: 139/89 pulse 83 100% on vent. Dr Love using Rhino kit to trach patient. Dr Nash at head of bed with ventilator and bronch in place. 2 RT's present Freya Luciano and Laney Tipton. Primary RN pushing medication , 2nd RN present; documenting. 0936 BP 98/80 MAP 86 Pulse 93 100% on Vent. 0942 BP 135/79 MAP 97 Pulse 99 100% Trach [address] [place] [address] Love. Vent hooked to Trach. Vent 16, 350, peep 5, 100% Trach sutured in place with gauze under it by Dr Love. End of procedure 0950. BP 134/107 MAP 117 Pulse 96 100% FIO2 ENTITLE 32.
--- NOTE | 2022-02-03 18:11 | NUR ---
DOBHOFF PLACEMENT. DOBHOFF PLACED AT APPROXIMATELY 1530, PT TOLERATED WELL. OK FOR USE PER DR. HOROWITZ, VERIFIED VIA CHEST XRAY.
--- NOTE | 2022-02-03 18:21 | NUR ---
Shift summary. Pt resting in bed, ventilated via new trach put in this am by Dr. Love, see notes. Vent settings: AC/VC 16/350/5/30%. Dobhoff in place, placed this afternoon, see note. TF at goal rate. PICC in place, precedex infusing at 0.5 mcg/kg/hr, NS 50 ml/hr. Parada in place, rectal tube in place. See chart for further details. Will continue to monitor and report off to oncoming RN.
--- NOTE | 2022-02-03 21:58 | NUR ---
ASSUMED CARE AT 1900 PT LAYING IN BED WATCHING TV AT SHIFT CHANGE. SHE IS ALERT AND ORIENTED X3; COMMUNICATING BY MOUTHING WORDS, SHAKING HEAD TO Y/N QUESTIONS, PEN/PAPER, AND THE COMMUNICATION BOARD; SHOWS UNDERSTANDING OF NOT PULLING ON NEW TRACH OR DOBHOFF; PRECEDEX INFUSING AT 0.5MCG/KG/HR. ON THE VENT VIA NEW TRACH PLACED TODAY, VENT SETTINGS AC/VC+ 16/350/5/35%; DRESSING AROUND TRACH SOILED; PLAN TO CHANGE. AFEBRILE. HR 100-110. SBP 100'S; MAP 70'S. VHP INFUSING VIA DOBHOFF AT 50ML/HR WITH 200ML WATER FLUSHES Q4HR. WHITLEY AND RECTAL TUBE IN PLACE AND DRAINING TO GRAVITY. NS INFUSING AT 50ML/HR. SEE SHIFT ASSESSMENT FOR FULL ASSESSMENT.
[2022-02-04 05:32] LABS: BASOPHILS ABSOLUTE AUTO 0.05 K/mm3 (0.00-0.23); BASOPHILS PERCENT AUTO 1 % (0-2); EOSINOPHILS ABSOLUTE AUTO 0.19 K/mm3 (0.00-0.68); EOSINOPHILS PERCENT AUTO 2 % (0-6); Hematocrit 22.5 % (33.0-51.0); Hemoglobin 7.3 g/dL (11.5-16.0); IMMATURE GRAN ABSOLUTE AUTO 0.12 K/mm3 (0.00-0.10); IMMATURE GRAN PERCENT AUTO 1 % (0-1); LYMPHOCYTES ABSOLUTE AUTO 2.03 K/mm3 (0.84-5.20); LYMPHOCYTES PERCENT AUTO 21 % (21-46); MONOCYTES ABSOLUTE AUTO 0.61 K/mm3 (0.16-1.47); MONOCYTES PERCENT AUTO 6 % (4-13); Mean Corpuscular HGB 27.3 pg (26.0-34.0); Mean Corpuscular HGB Conc 32.4 g/dL (31.5-36.5); Mean Corpuscular Volume 84 fL (80-100); Mean Platelet Volume 9.3 fL (9.1-12.4); NEUTROPHILS ABSOLUTE AUTO 6.81 K/mm3 (1.96-9.15); NEUTROPHILS PERCENT AUTO 70 % (41-73); Platelet Count 318 K/mm3 (150-400); RDW Coefficient Variation 13.7 % (11.7-14.2); RDW Standard Deviation 42.1 fL (35.1-46.3); Red Blood Cell Count 2.67 M/mm3 (3.80-5.20); White Blood Cell Count 9.81 K/mm3 (4.00-11.30)
[2022-02-04 05:51] LABS: Albumin, Blood 1.9 g/dL (3.4-5.0); Anion Gap 7 mmol/L (6-16); Blood Urea Nitrogen 19 mg/dL (8-24); Bun/Creatinine Ratio 32.6 (12.0-20.0); CO2, Blood 25 mmol/L (21-32); Calcium, Blood 8.6 mg/dL (8.5-10.1); Chloride, Blood 108 mmol/L (98-108); Creatinine, Blood 0.58 mg/dL (0.40-1.00); Glomerular Filtration Rate 99 (60-); Glucose, Blood 136 mg/dL (70-99); Phosphorus, Blood 3.5 mg/dL (2.5-4.9); Potassium, Blood 3.7 mmol/L (3.5-5.5); Sodium, Blood 140 mmol/L (136-145)
--- NOTE | 2022-02-04 06:44 | NUR ---
END OF SHIFT SUMMARY NO ACUTE EVENTS OVERNIGHT. PT CONT TO BE ON VENT VIA TRACH WITH VENT SETTINGS AC/VC 16/350/5/35%; MOD-LARGE AMOUNT OF SECREATIONS FROM TRACH; PRN FENTANYL GIVEN X2 FOR PAIN R/T TRACH. SHE CONT TO BE A/O X2, SLEPT ON AND OFF THROUGHOUT THE NIGHT; PRECEDEX INFUSING AT 0.5MCG/KG/HR. AFEBRILE. HR 90-105. SBP 90-110. VHP INFUSING AT GOAL. RECTAL TUBE IN PLACE WITH NO OUTPUT THIS SHIFT. WHITLEY IN PLACE WITH 950ML OUTPUT. NS INFUSING AT 50ML/HR. WILL REPORT TO AM RN WHEN AVAILABLE.
--- NOTE | 2022-02-04 07:35 | NUR ---
Assumed care of pt at 0715 Bedside report received from MARGE Mcnulty Pt is resting in bed, participating in report as able. Has new trach (placed yesterday) and is tolerating well. Mouths words as well as writes to communicate needs. Vent settings 16/350/5/30%. Sinus Rhythm/Sinus Tach at 99-110. Dobhoff in place infusing Tube feed at 50ml/hr (goal). Rectal tube in place with no output on previous shift. Parada draining clear yellow urine to gravity. Skin fragile with multiple reported skin tears. Has precedex infusing at 0.5 into Right upper arm PICC with NS at TKO. NS @ 50ml/hr infusing intp Left upper arm powerglide. H/H down slightly this am to 7.3/22.5. RN to continue to monitor.
--- NOTE | 2022-02-04 14:50 | NUR ---
PT/OT WORKING WITH PT RT AT BEDSIDE. PT VERY MOTIVATED TO WORK ON INCREASING MOBILITY. TOLERATED PT/OT WELL. DANGLED AT SIDE OF BED. RN TO CONTINUE TO MONITOR.
--- NOTE | 2022-02-04 16:58 | NUR ---
Mobility prior to admission reports pt was able to walk 100ft unassisted before hospitalization. Pt has a history of asthma and would get SOB. She also needs knee replacements and has pain when ambulating limiting the distance she could travel. Pt did not previously use any ambulatory aids.
--- NOTE | 2022-02-04 19:15 | NUR ---
ASSUMED CARE OF PT, BEDSIDE REPORT RECEIVED. PT IS NOTED ON SPONT SETTINGS ON VENTILATOR, PEEP 5, FIO2 30%, SATS MID 90S, PT DENIES DYSPNEA/SOB AT THIS TIME, TIDAL VOLUMES NOTED MID TO UPPER 300S. SHE DOES WELL AT MOUTHING WORDS TO MAKE NEEDS KNOWN. SHE REQUESTS PILLOW PLACED BEHIND BACK DURING BEDSIDE REPORT. WILL CONT TO MONITOR.
--- NOTE | 2022-02-04 19:28 | NUR ---
END OF SHIFT SUMMARY NEURO: ALERT AND ORIENTED X4, PLEASANT AND COOPERATIVE, FOLLOWING COMMANDS CARDIAC: SR-ST 90-110, BP SOFT. CLONIDINE DOSE DECREASED BY DR. NEWBY. RESP: SPONTANEOUS VENT SETTINGS ALL DAY. TOLERATED WELL, EVEN DURING SLEEP AND ACTIVITY. TRACH CARE COMPLETED. NEW TRACH AT BEDSIDE, OBTURATOR TAPED TO WALL ABOVE BED. GI: TUBE FEED AT 50 (GOAL). PT TOLERATED WELL. BS HYPOACTIVE. RECTAL TUBE D/C'D PER PT REQUEST, OK PER DR. PEGUERO. 2 BM'S AFTER RECTAL TUBE REMOVAL. : TEMP PROBE WHITLEY TO GRAVITY, UO CLEAR YELLOW 1200ML OUT. SKIN: FRAGILE WITH MULTIPLE SKIN TEARS, BUTTOCK AND PEDRITO AREA REDDENED, BARRIER CREAM APPLIED. IV: PICC TO RIGHT UPPER ARM, FLUSHING WELL. POWERGLIDE TO LEFT UPPER ARM, FLUSHING WELL. NS @ 50ML/HR INFUSING. PRECEDEX AT 0.3 WITH NS TKO. TO BEDSIDE TO VISIT, ENCOURAGED WITH PT PROGRESS TODAY. UPDATED ON POC AND ALL QUESTIONS ANSWERED.
[2022-02-05 05:55] LABS: BASOPHILS ABSOLUTE AUTO 0.05 K/mm3 (0.00-0.23); BASOPHILS PERCENT AUTO 1 % (0-2); EOSINOPHILS PERCENT AUTO 3 % (0-6); Hematocrit 22.6 % (33.0-51.0); Hemoglobin 7.3 g/dL (11.5-16.0); IMMATURE GRAN ABSOLUTE AUTO 0.11 K/mm3 (0.00-0.10); IMMATURE GRAN PERCENT AUTO 1 % (0-1); LYMPHOCYTES ABSOLUTE AUTO 2.25 K/mm3 (0.84-5.20); LYMPHOCYTES PERCENT AUTO 28 % (21-46); MONOCYTES ABSOLUTE AUTO 0.54 K/mm3 (0.16-1.47); MONOCYTES PERCENT AUTO 7 % (4-13); Mean Corpuscular HGB 27.1 pg (26.0-34.0); Mean Corpuscular HGB Conc 32.3 g/dL (31.5-36.5); Mean Corpuscular Volume 84 fL (80-100); Mean Platelet Volume 9.8 fL (9.1-12.4); NEUTROPHILS ABSOLUTE AUTO 4.98 K/mm3 (1.96-9.15); NEUTROPHILS PERCENT AUTO 61 % (41-73); Platelet Count 352 K/mm3 (150-400); RDW Coefficient Variation 13.8 % (11.7-14.2); Red Blood Cell Count 2.69 M/mm3 (3.80-5.20); White Blood Cell Count 8.13 K/mm3 (4.00-11.30)
[2022-02-05 06:34] LABS: Anion Gap 3 mmol/L (6-16); Blood Urea Nitrogen 20 mg/dL (8-24); Bun/Creatinine Ratio 35.5 (12.0-20.0); CO2, Blood 26 mmol/L (21-32); Calcium, Blood 8.8 mg/dL (8.5-10.1); Chloride, Blood 110 mmol/L (98-108); Creatinine, Blood 0.56 mg/dL (0.40-1.00); Glomerular Filtration Rate 99 (60-); Glucose, Blood 113 mg/dL (70-99); Magnesium, Blood 1.8 mg/dL (1.6-2.4); Phosphorus, Blood 3.9 mg/dL (2.5-4.9); Sodium, Blood 139 mmol/L (136-145)
--- NOTE | 2022-02-05 07:22 | NUR ---
PT RESTS QUIETLY THROUGHOUT SHIFT, CONTINUES TO MOUTH WORDS TO MAKE NEEDS KNOWN. PAIN CONTROLLED WITH LORTAB ELIXER PER PT. MAINTAINS SATS AND DENIES INCREASED WORK OF BREATHING THROUGHOUT NOC WITH VENTILATOR ON SPONTANEOUS, PEEP 5 AND FIO2 30%. PRESSURES CONTINUE SOFT HOWEVER MAINTAINING MAP. GOOD URINE OUTPUT. TOLERATING TUBE FEEDS AT GOAL. NO ACUTE CHANGES THIS SHIFT.
--- NOTE | 2022-02-05 17:56 | NUR ---
SHIFT SUMMARY PT DOING WELL THIS SHIFT. PT HAS REMAINED ALERT AND ORIENTED WHEN AWAKE. PT SLEEPING OFF AND ON THIS AFTERNOON. TRACH REMAINS C/D/I. PT PLACED ON 8L, 28% FIO2 VIA TRACH T THIS MORNING. VITAL SIGNS REMAIN STABLE. PT WITH OCCASIONAL COUGHING EPISODES WITH SMALL AMOUNT OF THICK SECRETIONS VIA TRACH SUCTION. DOBHOFF REMAINS IN PLACE WITH TF INFUSING AT GOAL RATE. PICC TO MAZIN REMAINS IN PLACE WITH NS INFUSING AT 50 ML/HR, NS TKO, AND PRECEDEX AT 0.3 MCG/KG/HR. WHITLEY TEMP PROBE REMAINS IN PLACE WITH LARGE VOLUME OF CLEAR YELLOW URINE OUTPUT NOTED. PT WITH MULTIPLE INCONTINENT BM'S THIS SHIFT. PT FAMILY AT BEDSIDE THIS MORNING. PT DANGLED AT BEDSIDE WITH PHYSICAL THERAPY THIS SHIFT AND PT TURNS SELF IN BED WELL. WILL CONTINUE TO MONITOR AND REPORT OFF TO ONCOMING RN.
--- NOTE | 2022-02-05 19:00 | NUR ---
ASSUMED CARE OF PT, REPORT RECEIVED. PT IS NOTED RESTING QUIETLY, RECLINING IN BED NOW WITH TRACH T-PIECE IN PLACE, SATS MAINTAINING. SHE DENIES NEEDS AT THIS TIME. DENIES DYSPNEA/SOB. PRECEDEX CONTINUES, WILL ATTEMPT TO TITRATE TO OFF THIS SHIFT.
[2022-02-05 20:18] LABS: Base Excess Venous 1.8 mmol/L; Bicarbonate Venous 25.8 mmol/L (24.0-30.0); PCO2 Venous 44.8 mmHg (38-42); pH Blood Venous 7.39 (7.34-7.37)
[2022-02-06 05:06] LABS: BASOPHILS ABSOLUTE AUTO 0.03 K/mm3 (0.00-0.23); BASOPHILS PERCENT AUTO 0 % (0-2); EOSINOPHILS ABSOLUTE AUTO 0.22 K/mm3 (0.00-0.68); EOSINOPHILS PERCENT AUTO 3 % (0-6); Hematocrit 23.4 % (33.0-51.0); Hemoglobin 7.8 g/dL (11.5-16.0); IMMATURE GRAN ABSOLUTE AUTO 0.07 K/mm3 (0.00-0.10); IMMATURE GRAN PERCENT AUTO 1 % (0-1); LYMPHOCYTES ABSOLUTE AUTO 1.86 K/mm3 (0.84-5.20); LYMPHOCYTES PERCENT AUTO 23 % (21-46); MONOCYTES ABSOLUTE AUTO 0.52 K/mm3 (0.16-1.47); MONOCYTES PERCENT AUTO 6 % (4-13); Mean Corpuscular HGB 27.7 pg (26.0-34.0); Mean Corpuscular HGB Conc 33.3 g/dL (31.5-36.5); Mean Corpuscular Volume 83 fL (80-100); Mean Platelet Volume 9.3 fL (9.1-12.4); NEUTROPHILS ABSOLUTE AUTO 5.52 K/mm3 (1.96-9.15); NEUTROPHILS PERCENT AUTO 67 % (41-73); Platelet Count 406 K/mm3 (150-400); RDW Coefficient Variation 13.6 % (11.7-14.2); RDW Standard Deviation 40.9 fL (35.1-46.3); Red Blood Cell Count 2.82 M/mm3 (3.80-5.20); White Blood Cell Count 8.22 K/mm3 (4.00-11.30)
[2022-02-06 05:35] LABS: Albumin, Blood 1.9 g/dL (3.4-5.0); Anion Gap 5 mmol/L (6-16); Blood Urea Nitrogen 18 mg/dL (8-24); Bun/Creatinine Ratio 35.6 (12.0-20.0); CO2, Blood 29 mmol/L (21-32); Calcium, Blood 8.6 mg/dL (8.5-10.1); Chloride, Blood 107 mmol/L (98-108); Creatinine, Blood 0.51 mg/dL (0.40-1.00); Glomerular Filtration Rate 102 (60-); Glucose, Blood 125 mg/dL (70-99); Phosphorus, Blood 3.6 mg/dL (2.5-4.9); Potassium, Blood 3.8 mmol/L (3.5-5.5); Sodium, Blood 141 mmol/L (136-145)
--- NOTE | 2022-02-06 07:30 | NUR ---
PT RESTS QUIETLY THROUGHOUT SHIFT, MAINTAINS SATS AND RESPIRATORY RATE WITH T-PIECE, DENIES DYSPNEA/SOB, DOES INTERMITTENTLY REQUEST SUCTIONING. SHE CONTINUES TO TURN HERSELF WELL TO RIGHT AND BACK SUPINE, SHE IS ABLE TO TURN TO LEFT HOWEVER HAS NOT BEEN OBSERVED TO REST IN THIS POSITION. [place]STATIN POWDER ORDERS OBTAINED FROM DR PEGUERO FOR RASH TO BUTTOCKS AND PEDRITO AREA. PAIN TO TRACH CONTINUES, CONTROLLED WITH FENTANYL IV AND LORTAB PT. PRECEDEX TITRATED DOWN FROM 0.3 MCG/KG/HR TO 0.1 MCG/KG/HR AND PT HAS TOLERATED WELL, LAST TITRATION AT 0515 THIS AM. TOLERATING TUBE FEEDS AT GOAL, PT WAS INCONT OF SMALL BROWN BM THIS SHIFT WITH COUGHING SPELL.
--- NOTE | 2022-02-06 07:41 | NUR ---
Asssumed care. Report received from nightshift RN. Pt resting in bed, on 02 via trach, T-piece 8L, 25%. Precedex infusing at 0.1 mcg/kg/hr, NS TKO. PICC MAZIN, PG FAITH, wnl. Parada catheter draining to gravity. Pt alert, able to mouth words, nod yes/no, follow commands. Oriented to self/situation/event/staff. VS stable, pt denies needs at this time. Continue to monitor.
--- NOTE | 2022-02-06 17:59 | NUR ---
Shift summary. Pt rested in bed most of the shift. Up to chair for about an hour this am. Pt alert, mouthing words and nodding yes/no to communicate. On 02 via t-piece/trach, see RT assessment. No acute changes this shift, VS stable. See assessment for further details. Will continue to monitor and report off to nightshift NR.
[2022-02-07 04:48] LABS: BASOPHILS ABSOLUTE AUTO 0.04 K/mm3 (0.00-0.23); BASOPHILS PERCENT AUTO 1 % (0-2); EOSINOPHILS ABSOLUTE AUTO 0.26 K/mm3 (0.00-0.68); EOSINOPHILS PERCENT AUTO 3 % (0-6); Hematocrit 25.4 % (33.0-51.0); Hemoglobin 8.6 g/dL (11.5-16.0); IMMATURE GRAN ABSOLUTE AUTO 0.11 K/mm3 (0.00-0.10); IMMATURE GRAN PERCENT AUTO 1 % (0-1); LYMPHOCYTES ABSOLUTE AUTO 1.96 K/mm3 (0.84-5.20); LYMPHOCYTES PERCENT AUTO 23 % (21-46); MONOCYTES ABSOLUTE AUTO 0.62 K/mm3 (0.16-1.47); MONOCYTES PERCENT AUTO 7 % (4-13); Mean Corpuscular HGB 27.4 pg (26.0-34.0); Mean Corpuscular HGB Conc 33.9 g/dL (31.5-36.5); Mean Corpuscular Volume 81 fL (80-100); Mean Platelet Volume 9.1 fL (9.1-12.4); NEUTROPHILS ABSOLUTE AUTO 5.72 K/mm3 (1.96-9.15); NEUTROPHILS PERCENT AUTO 66 % (41-73); Platelet Count 477 K/mm3 (150-400); RDW Coefficient Variation 13.3 % (11.7-14.2); RDW Standard Deviation 38.8 fL (35.1-46.3); Red Blood Cell Count 3.14 M/mm3 (3.80-5.20); White Blood Cell Count 8.71 K/mm3 (4.00-11.30)
[2022-02-07 05:08] LABS: Albumin, Blood 2.1 g/dL (3.4-5.0); Anion Gap 6 mmol/L (6-16); Blood Urea Nitrogen 14 mg/dL (8-24); Bun/Creatinine Ratio 25.1 (12.0-20.0); CO2, Blood 30 mmol/L (21-32); Calcium, Blood 8.6 mg/dL (8.5-10.1); Chloride, Blood 104 mmol/L (98-108); Creatinine, Blood 0.56 mg/dL (0.40-1.00); Glomerular Filtration Rate 99 (60-); Glucose, Blood 112 mg/dL (70-99); Magnesium, Blood 1.6 mg/dL (1.6-2.4); Phosphorus, Blood 3.8 mg/dL (2.5-4.9); Potassium, Blood 3.8 mmol/L (3.5-5.5); Sodium, Blood 140 mmol/L (136-145)
--- NOTE | 2022-02-07 05:34 | NUR ---
SHIFT SUMMARY: PT. REMAINED STABLE OVERNIGHT, PRN PAIN MEDS WERE GIVEN FOR TRACH. NEURO MOCTEZUMA, PT. IS ALERT, BUT RESPONDING SELECTIVELY TO QUESTIONS, SEEMS TO BE AGITATED FREQUENTLY. PT. IS STILL ON TRACH, AND SATTING WELL ON RA, TRACH CARE DONE THIS AM. PT. HAS BEEN HYPERTENSIVE THROUGHTOUT THE NIGHT AND IN SINUS TACH. PT. HAS NOT HAD A BM FOR ME OVERNIGHT AND HAS A WHITLEY THAT IS PATENT AND DRAINING WITH GOOD OUTPUT. PT. RESTING IN BED WITH CALL LIGHT IN REACH.
--- NOTE | 2022-02-07 18:14 | NUR ---
Shift summary. Pt rested in bed throughout shift, sat up on the side of the bed with PT this afternoon. Able to maintain 02 sats on RA through trach. T-piece replaced with trach collar this afternoon. Pt alert, oriented to self and surroundings. Medicated with 1mg Ativan this morning for anxiety/agitation, pt able to sleep for several hours afterwards. PG dc'd, PICC in place. Parada catheter in place. No acute events, VS stable, see assessment for further details. Will report off to oncoming RN.
[2022-02-08 04:38] LABS: BASOPHILS ABSOLUTE AUTO 0.04 K/mm3 (0.00-0.23); BASOPHILS PERCENT AUTO 0 % (0-2); EOSINOPHILS ABSOLUTE AUTO 0.24 K/mm3 (0.00-0.68); EOSINOPHILS PERCENT AUTO 2 % (0-6); Hematocrit 25.6 % (33.0-51.0); Hemoglobin 8.7 g/dL (11.5-16.0); IMMATURE GRAN ABSOLUTE AUTO 0.14 K/mm3 (0.00-0.10); IMMATURE GRAN PERCENT AUTO 1 % (0-1); LYMPHOCYTES ABSOLUTE AUTO 2.43 K/mm3 (0.84-5.20); LYMPHOCYTES PERCENT AUTO 19 % (21-46); MONOCYTES ABSOLUTE AUTO 0.94 K/mm3 (0.16-1.47); MONOCYTES PERCENT AUTO 7 % (4-13); Mean Corpuscular HGB 27.5 pg (26.0-34.0); Mean Corpuscular Volume 81 fL (80-100); Mean Platelet Volume 8.9 fL (9.1-12.4); NEUTROPHILS ABSOLUTE AUTO 9.17 K/mm3 (1.96-9.15); NEUTROPHILS PERCENT AUTO 71 % (41-73); Platelet Count 525 K/mm3 (150-400); RDW Coefficient Variation 13.2 % (11.7-14.2); RDW Standard Deviation 38.5 fL (35.1-46.3); Red Blood Cell Count 3.16 M/mm3 (3.80-5.20); White Blood Cell Count 12.96 K/mm3 (4.00-11.30)
[2022-02-08 05:16] LABS: Magnesium, Blood 1.8 mg/dL (1.6-2.4)
[2022-02-08 05:17] LABS: Albumin, Blood 2.3 g/dL (3.4-5.0); Anion Gap 6 mmol/L (6-16); Blood Urea Nitrogen 11 mg/dL (8-24); Bun/Creatinine Ratio 20.7 (12.0-20.0); CO2, Blood 27 mmol/L (21-32); Calcium, Blood 8.8 mg/dL (8.5-10.1); Chloride, Blood 101 mmol/L (98-108); Creatinine, Blood 0.53 mg/dL (0.40-1.00); Glomerular Filtration Rate 101 (60-); Glucose, Blood 131 mg/dL (70-99); Sodium, Blood 134 mmol/L (136-145)
--- NOTE | 2022-02-08 05:25 | NUR ---
SHIFT SUMMARY: PT. REMAINED STABLE OVERNIGHT, NO ACUTE CHANGES. PT. IS ALERT BUT UNABLE TO ANSWER ORIENTATION QUESTIONS AND GETS VERY AGITATED WITH CARE. PT. IS SATTING WELL ON TRACH COLLAR AND TRACH CARE WAS PERFORMED THIS AM. PT. HAS BEEN IN SINUS TACH WITH SLIGHT HTN. PT. HAD TWO LIQUID BMS AND PUT OUT 1150 IN WHITLEY. PT. RESTING COMFORTABLY IN BED AT THIS TIME.
--- NOTE | 2022-02-08 16:00 | NUR ---
SUMMARY PT A/O TO PERSON, PLACE, AND SITUATION. PT ABLE TO MOUTH WORDS OR POINT AT OBJECTS TO MAKE NEEDS KNOWN. PT MOVES SELF IN BED FREQUENTLY. HAS TENACIOUS SPUTUM. TRACH CARE PERFORMED AND RT ASSISTED WITH SUCTIONING WHICH HELPS. STRONG COUGH. DID WELL ON TRACH COLLAR ALL DAY. GOT UP TO RECLINER CHAIR FOR A WHILE THEN BACK TO BED. NO DESATTING DURING THIS TIME. INCONTINENT OF STOOL A COUPLE TIMES TODAY. PT TRANSFERED TO PCU 10, NO SIGN OF DISTRESS SHE LEAVES THE UNIT. PT IS SET TO TRANSFER TO [facility] TOMORROW.
--- NOTE | 2022-02-08 17:48 | NUR ---
CARE ASSUMPTION/SHIFT SUMMARY THIS RN ASSUMED CARE AT 1730. PATIENT IN NO DISTRESS WHEN ARRIVING. ORIENTED TO PCU ROOM AND CALL LIGHT. TUBE FEEDING AT GOAL RATE AND FLUSH Q4. SEE ORDER FOR MORE DETIALS. BED ALARM ON. CALL LIGHT WITHIN REACH AND BED IN LOWEST POSITION.
--- NOTE | 2022-02-09 05:56 | NUR ---
SHIFT SUMMARY A/O TO SELF AND SURROUNDINGS. FORGETFUL, DIFFICULTY ASSESSING MENTATION D/T COMMUNICATION BARRIERS. TRACH COLLAR TO HUMIDIFIED AIR, O2 SATURATIONS ABOVE 92% DOBHOFF IN PLACE WITH CONTINOUS FEEDS AT GOAL RATE OF 45 ML/HR. TELE ST 100-110. RESTLESS T/O NIGHT, GRIMACING AT TIMES, MEDICATED FOR PAIN PER EMAR. VSS, NO ACUTE CHANGES AT THIS TIME. BED IN LOWEST POSITION WITH CALL LIGHT IN REACH. WILL CONTINUE TO MONITOR AND REPORT TO ONCOMING RN.
[2022-02-09] MEDS ORDERED: XARELTO20 MG PO (07:34)
--- NOTE | 2022-02-09 09:44 | NUR ---
CARE ASSUMPTION THIS RN ASSUMED CARE AT 0700. VSS. NEURO INTACT. PATIENT HAS TRACH COLAR IN PLACE. SUCTION DONE BY RESPIRATORY CARE ON RA ON THE TRACH COLAR. TRACH CARE DONE. PATIENT REPROTS PAIN IN RIGHT SHOULDER, AND PAIN MEDICATION PROVIDED PER EMAR. BURDEN BY TO SEE PATIENT THIS AM. PLAN OF CARE IS UP TO DATE. PLAN TO LEAVE TO [facility] AT 1300 TODAY. PLAN OF CARE UP TO DATE. SEE SHIFT ASSESSMENT FOR FURTHER DETAILS.
[2022-02-09] MEDS ORDERED: Keppra100 MG/1 M PT (09:59)
--- NOTE | 2022-02-09 09:59 | NUR ---
update plan is to go go [facility] fr[place] now.
[2022-02-09] MEDS ORDERED: LISI20 PT (10:00)
[2022-02-09] MEDS ORDERED: B-1100 M1 PT (10:00)
[2022-02-09] MEDS ORDERED: VISBIOME 112.51 EACH PO (10:01)
--- NOTE | 2022-02-09 17:46 | NUR ---
SHIFT SUMMARY PATIENT NEURO REMAINS INTACT. NO ACUTE CHANGES THIS SHIFT. PATIENT REFUSED ORAL CARE TWICE TODAY, BUT ALLOWED THIS AM ORAL CARE TO BE DONE. TUBE FEEDING AT GOAL RATE. PATIENT REFUSING REPOSITIONING, STAYING ON RIGHT SIDE. PATIENT SLEPT MAJORITY OF THE DAY. UPDATED ON PLAN OF CARE. CALL LIGHT WITHIN REACH, BED ALARM ON, AND BED IN LOWEST POSITION.
[2022-02-10 03:45] LABS: BASOPHILS ABSOLUTE AUTO 0.04 K/mm3 (0.00-0.23); BASOPHILS PERCENT AUTO 0 % (0-2); EOSINOPHILS ABSOLUTE AUTO 0.38 K/mm3 (0.00-0.68); EOSINOPHILS PERCENT AUTO 4 % (0-6); Hematocrit 24.6 % (33.0-51.0); Hemoglobin 8.4 g/dL (11.5-16.0); IMMATURE GRAN PERCENT AUTO 1 % (0-1); LYMPHOCYTES ABSOLUTE AUTO 2.44 K/mm3 (0.84-5.20); LYMPHOCYTES PERCENT AUTO 24 % (21-46); MONOCYTES ABSOLUTE AUTO 0.96 K/mm3 (0.16-1.47); MONOCYTES PERCENT AUTO 9 % (4-13); Mean Corpuscular HGB 27.6 pg (26.0-34.0); Mean Corpuscular HGB Conc 34.1 g/dL (31.5-36.5); Mean Corpuscular Volume 81 fL (80-100); Mean Platelet Volume 8.8 fL (9.1-12.4); NEUTROPHILS ABSOLUTE AUTO 6.46 K/mm3 (1.96-9.15); NEUTROPHILS PERCENT AUTO 62 % (41-73); Platelet Count 474 K/mm3 (150-400); RDW Coefficient Variation 13.4 % (11.7-14.2); RDW Standard Deviation 38.9 fL (35.1-46.3); Red Blood Cell Count 3.04 M/mm3 (3.80-5.20); White Blood Cell Count 10.38 K/mm3 (4.00-11.30)
[2022-02-10 04:03] LABS: Albumin, Blood 2.2 g/dL (3.4-5.0); Anion Gap 6 mmol/L (6-16); Blood Urea Nitrogen 12 mg/dL (8-24); Bun/Creatinine Ratio 21.5 (12.0-20.0); CO2, Blood 25 mmol/L (21-32); Calcium, Blood 8.9 mg/dL (8.5-10.1); Chloride, Blood 101 mmol/L (98-108); Creatinine, Blood 0.56 mg/dL (0.40-1.00); Glomerular Filtration Rate 99 (60-); Glucose, Blood 144 mg/dL (70-99); Magnesium, Blood 1.9 mg/dL (1.6-2.4); Phosphorus, Blood 4.6 mg/dL (2.5-4.9); Potassium, Blood 4.2 mmol/L (3.5-5.5); Sodium, Blood 132 mmol/L (136-145)
--- NOTE | 2022-02-10 05:59 | NUR ---
SHIFT SUMMARY: NO ACUTE EVENTS OVERNIGHT. PRN FENTANYL GIVEN TWICE, PRN ATIVAN GIVEN ONCE. PT ON TRACH COLLAR, TOLERATING WELL. TUBE FEEDS @ 45ML/HR WITH 150 H20 FLUSH Q4H. MULITPLE BMS OVERNIGHT. HELD BANANA FLAKES D/T DIARRHEA. PLAN TO GO TO [facility].
--- NOTE | 2022-02-10 18:12 | NUR ---
SHIFT SUMMARY THIS RN ASSUMED CARE AT 0700. VSS. PATIENT IS ALERT AND ORIENED X3-4. PATIENT REPROTS PAIN AT BOTTOM, SHOULDER, AND TRACH THROUGHOUT THE SHIFT. TRACH SITE CLEANED AND INNER CANULA CHANGED PER RESPIRATORY CARE. MD BURDEN IN AND DISCUSSED PLAN OF CARE WITH PATIENT AND PATIENTS . PATIENT HAS BEEN REPOSITIONED EVERY 2 HOURS AND RECEIVED ORAL CARE WHEN PATIENT WOULD ALLOW. PATIENT PULLED NG TUBE OUT AND WAS REPLACED, PROPER PLACEMENT CONFIRMED AND RESTARTING TUBE FEEDING AT GOAL RATE. WHITLEY CATH IN PLACE DRAINING WITH GRAVITY. SEE SHIFT ASSESSMENT FOR DETAILS. CALL LIGHT IS WITHIN REACH AND BED IN LOWEST POSITION.
[2022-02-11 05:00] LABS: BASOPHILS ABSOLUTE AUTO 0.04 K/mm3 (0.00-0.23); BASOPHILS PERCENT AUTO 0 % (0-2); EOSINOPHILS ABSOLUTE AUTO 0.31 K/mm3 (0.00-0.68); EOSINOPHILS PERCENT AUTO 3 % (0-6); Hematocrit 24.1 % (33.0-51.0); Hemoglobin 8.1 g/dL (11.5-16.0); IMMATURE GRAN ABSOLUTE AUTO 0.06 K/mm3 (0.00-0.10); IMMATURE GRAN PERCENT AUTO 1 % (0-1); LYMPHOCYTES ABSOLUTE AUTO 2.19 K/mm3 (0.84-5.20); LYMPHOCYTES PERCENT AUTO 23 % (21-46); MONOCYTES ABSOLUTE AUTO 0.88 K/mm3 (0.16-1.47); MONOCYTES PERCENT AUTO 9 % (4-13); Mean Corpuscular HGB 27.1 pg (26.0-34.0); Mean Corpuscular HGB Conc 33.6 g/dL (31.5-36.5); Mean Corpuscular Volume 81 fL (80-100); Mean Platelet Volume 9.1 fL (9.1-12.4); NEUTROPHILS ABSOLUTE AUTO 5.95 K/mm3 (1.96-9.15); NEUTROPHILS PERCENT AUTO 63 % (41-73); Platelet Count 512 K/mm3 (150-400); RDW Coefficient Variation 13.4 % (11.7-14.2); RDW Standard Deviation 39.4 fL (35.1-46.3); Red Blood Cell Count 2.99 M/mm3 (3.80-5.20); White Blood Cell Count 9.43 K/mm3 (4.00-11.30)
[2022-02-11 05:21] LABS: Albumin, Blood 2.3 g/dL (3.4-5.0); Anion Gap 8 mmol/L (6-16); Blood Urea Nitrogen 16 mg/dL (8-24); CO2, Blood 23 mmol/L (21-32); Calcium, Blood 9.1 mg/dL (8.5-10.1); Chloride, Blood 106 mmol/L (98-108); Creatinine, Blood 0.62 mg/dL (0.40-1.00); Glomerular Filtration Rate 97 (60-); Glucose, Blood 120 mg/dL (70-99); Phosphorus, Blood 4.3 mg/dL (2.5-4.9); Potassium, Blood 4.3 mmol/L (3.5-5.5); Sodium, Blood 137 mmol/L (136-145)
--- NOTE | 2022-02-11 05:53 | NUR ---
Shift summary: At the beginning of the night pt was slightly drowsy, but then became restless for majority of the night. She is able to mouth words and able to tell me her name. She moves around in bed a lot and repositions herself off of her bottom. She is SR/ST depending on activity. BP is WNL. Afebrile. Pt has a 8.0 shiley trach that's C/D/I. pt was suctioned a couple of times and was able to cough up thick yellow secretions. DHT is @65cm w/TF infusing at goal (45ml/hr). She has not had any BM's overnight but has passed gas. MAZIN PICC line in place- dressing C/D/I. Given pain medications once and pt seemed to relax slightly. She has BUE soft wrist restraints in place because she removed DHT yesterday. Each time restraints have been removed for repositioning, the pt has reached for the DHT despite redirection attempts.
--- NOTE | 2022-02-11 07:00 | NUR ---
ASSUME CARE: I have assumed care of this patient.
--- NOTE | 2022-02-11 11:05 | NUR ---
TRANSFER REPORT: Report given to MARGE Stroud at [facility] in [place]. Will call once pt has left.
[2022-02-11] MEDS ORDERED: ACET325 PO (11:52)
[2022-02-11] MEDS ORDERED: ENOX60I SC (11:54)
[2022-02-11] MEDS ORDERED: Q-Tussin100 MG/5 M PO (11:55)
--- NOTE | 2022-02-11 14:50 | NUR ---
DISCHARGE: pt discharged to [facility] with EMS. She was premedicated for the trip with ativan PT. Paramedics were given report on pt.
== END 2022-02-11 14:49 | DRG 4 ==
LOC: ER 10:48 → PCU 16:10 → ICUW 16:10 → PCU 02-08 17:37
PROVIDERS: Family Medicine; Internal Medicine; Internal Medicine Critical Care Medicine; Nurse Practitioner Acute Care; Student in an Organized Health Care Education/Training Program; ADMIT Student in an Organized Health Care Education/Training Program
PROC: 5A1955Z Respiratory Ventilation, Greater than 96 Consecutive Hours (ICD-10-PCS; 2022-01-23)
PROC: 0BH18EZ Insertion of Endotracheal Airway into Trachea, Via Natural or Artificial Opening Endoscopic (ICD-10-PCS; 2022-01-23)
PROC: 3E03329 Introduction of Other Anti-infective into Peripheral Vein, Percutaneous Approach (ICD-10-PCS; 2022-01-23)
PROC: 009U3ZX Drainage of Spinal Canal, Percutaneous Approach, Diagnostic (ICD-10-PCS; principal; 2022-01-24)
PROC: B01BZZZ Fluoroscopy of Spinal Cord (ICD-10-PCS; 2022-01-24)
PROC: 02HV33Z Insertion of Infusion Device into Superior Vena Cava, Percutaneous Approach (ICD-10-PCS; 2022-01-31)
PROC: 0DH67UZ Insertion of Feeding Device into Stomach, Via Natural or Artificial Opening (ICD-10-PCS; 2022-01-31)
PROC: 5A09357 Assistance with Respiratory Ventilation, Less than 24 Consecutive Hours, Continuous Positive Airway Pressure (ICD-10-PCS; 2022-02-01)
PROC: 5A1955Z Respiratory Ventilation, Greater than 96 Consecutive Hours (ICD-10-PCS; 2022-02-01)
PROC: 0BH17EZ Insertion of Endotracheal Airway into Trachea, Via Natural or Artificial Opening (ICD-10-PCS; 2022-02-01)
PROC: 0B113F4 Bypass Trachea to Cutaneous with Tracheostomy Device, Percutaneous Approach (ICD-10-PCS; 2022-02-03)
PROC: 0BJ08ZZ Inspection of Tracheobronchial Tree, Via Natural or Artificial Opening Endoscopic (ICD-10-PCS; 2022-02-03)
DX: A41.52 Sepsis due to Pseudomonas (principal); G92.8 Other toxic encephalopathy; J96.01 Acute respiratory failure with hypoxia; J15.1 Pneumonia due to Pseudomonas; Z99.11 Dependence on respirator [ventilator] status; J95.851 Ventilator associated pneumonia; F05 Delirium due to known physiological condition; E87.0 Hyperosmolality and hypernatremia; Z16.29 Resistance to other single specified antibiotic; F10.20 Alcohol dependence, uncomplicated; F41.9 Anxiety disorder, unspecified; J45.909 Unspecified asthma, uncomplicated; M50.30 Other cervical disc degeneration, unspecified cervical region; K21.9 Gastro-esophageal reflux disease without esophagitis; I10 Essential (primary) hypertension; E03.9 Hypothyroidism, unspecified; F32.A Depression, unspecified; D50.9 Iron deficiency anemia, unspecified; F12.10 Cannabis abuse, uncomplicated; G89.29 Other chronic pain; G40.409 Other generalized epilepsy and epileptic syndromes, not intractable, without status epilepticus; M25.552 Pain in left hip; M25.551 Pain in right hip; M51.36 Other intervertebral disc degeneration, lumbar region; M47.816 Spondylosis without myelopathy or radiculopathy, lumbar region; M54.9 Dorsalgia, unspecified; Z20.822 Contact with and (suspected) exposure to COVID-19; Z88.5 Allergy status to narcotic agent; Z86.711 Personal history of pulmonary embolism; Z88.2 Allergy status to sulfonamides; Z88.8 Allergy status to other drugs, medicaments and biological substances; Z79.899 Other long term (current) drug therapy; Z79.51 Long term (current) use of inhaled steroids; Z79.891 Long term (current) use of opiate analgesic; Z79.01 Long term (current) use of anticoagulants; Z90.49 Acquired absence of other specified parts of digestive tract; Z98.890 Other specified postprocedural states; Z90.710 Acquired absence of both cervix and uterus; Z79.2 Long term (current) use of antibiotics; Z86.19 Personal history of other infectious and parasitic diseases
CPT/HCPCS: 0241U; 31500; 31720; 36415; 36569; 36600; 51702; 62270; 62328; 70450; 71045; 74018; 80048; 80053; 80069; 80202; 81001; 82140; 82330; 82803; 82945; 82947; 83605; 83735; 84100; 84132; 84145; 84146; 84157; 84443; 85025; 85520; 85610; 85730; 87040; 87070; 87077; 87186; 87205; 87483; 89051; 93005; 93010; 94002; 94003; 94640; 94664; 94762; 95819; 96365-59; 96367-59; 96375-59; 96376-59; 97110; 97112; 97162; 97166; 97530; 99291-25; A9270; C1751; C9113; J0133; J0290; J0360; J0696; J0713; J1170; J1644; J1650; J1885; J1940; J1953; J1956; J2060; J2250; J2370; J2704; J3010; J3370; J3475; J3480; J7030; J7050; J7060; J7070

== ENCOUNTER 2022-05-07 13:29 | Inpatient (IN) | payer MEDICARE, OTHER ==
[~2022-05-07] VITALS: Ht 162.6 cm; Wt 60.5 kg
[~2022-05-07 13:29] MED LIST changes: +ACET325 PO; +B-1100 M1 PO; +BUPROPION XL150 M1 PO; +ENOX60I SC; +GABAPENTIN600 MG PO; +LEVE500 PO; +LISI20 PO; +Q-Tussin100 MG/5 M PO; +XARELTO20 MG PO
[2022-05-07 13:54] LABS: Base Excess Venous 1.9 mmol/L; Bicarbonate Venous 25.2 mmol/L (24.0-30.0); PCO2 Venous 40.8 mmHg (38-42); pH Blood Venous 7.42 (7.34-7.37)
[2022-05-07 13:57] LABS: BASOPHILS ABSOLUTE AUTO 0.06 K/mm3 (0.00-0.23); BASOPHILS PERCENT AUTO 1 % (0-2); EOSINOPHILS ABSOLUTE AUTO 0.04 K/mm3 (0.00-0.68); EOSINOPHILS PERCENT AUTO 0 % (0-6); Hematocrit 35.8 % (33.0-51.0); Hemoglobin 12.2 g/dL (11.5-16.0); IMMATURE GRAN ABSOLUTE AUTO 0.03 K/mm3 (0.00-0.10); IMMATURE GRAN PERCENT AUTO 0 % (0-1); LYMPHOCYTES ABSOLUTE AUTO 2.25 K/mm3 (0.84-5.20); LYMPHOCYTES PERCENT AUTO 18 % (21-46); MONOCYTES ABSOLUTE AUTO 0.64 K/mm3 (0.16-1.47); MONOCYTES PERCENT AUTO 5 % (4-13); Mean Corpuscular HGB 25.7 pg (26.0-34.0); Mean Corpuscular HGB Conc 34.1 g/dL (31.5-36.5); Mean Corpuscular Volume 75 fL (80-100); Mean Platelet Volume 8.8 fL (9.1-12.4); NEUTROPHILS ABSOLUTE AUTO 9.34 K/mm3 (1.96-9.15); NEUTROPHILS PERCENT AUTO 76 % (41-73); Platelet Count 288 K/mm3 (150-400); RDW Coefficient Variation 13.7 % (11.7-14.2); RDW Standard Deviation 36.9 fL (35.1-46.3); Red Blood Cell Count 4.75 M/mm3 (3.80-5.20); White Blood Cell Count 12.36 K/mm3 (4.00-11.30)
[2022-05-07 14:30] LABS: Thyroid Stimulating Hormone 2.33 uIU/mL (0.360-4.800)
[2022-05-07 14:31] LABS: Albumin, Blood 3.6 g/dL (3.4-5.0); Bilirubin, Total 0.4 mg/dL (0.1-1.0); Bun/Creatinine Ratio 17.9 (12.0-20.0); Calcium, Blood 9.5 mg/dL (8.5-10.1); Creatinine, Blood 0.73 mg/dL (0.40-1.00); Globulin, Blood 3.5 g/dL (2.2-4.0); Potassium, Blood 3.3 mmol/L (3.5-5.5); Total Protein, Blood 7.1 g/dL (6.4-8.2)
[2022-05-07 16:21] LABS: Anti-Xa UFH, PHA Monitoring <0.10 IU/mL; International Normalized Ratio 0.98; Prothrombin Time Results 10.3 Sec (9.7-11.5)
[2022-05-07 16:45] LABS: Source, Urine Clean Catch
[2022-05-07] MEDS ORDERED: Percocet 5-3251 EACH PO (16:46)
[2022-05-07] MEDS ORDERED: FOLI1 PO (16:47)
[2022-05-07 16:57] LABS: Appearance, Urine Hazy (Clear); Bilirubin, Urine Neg (Neg); Blood, Urine Neg (Neg); Color, Urine Yellow (P-Yellow); Glucose Qualitative, Urine Neg (Neg); Ketones, Urine 1+ (Neg); Leukocyte Esterase, Urine Neg (Neg); Nitrite, Urine Neg (Neg); Protein, Urine Neg (Neg); Specific Gravity, Urine 1.015 (1.003-1.022); Urobilinogen, Urine NORM (Normal)
[2022-05-07 17:18] LABS: U Amphetamine Screen Not Detected; U Barbituate Screen Not Detected; U Benzodiazapine Screen Not Detected; U Buprenorphine Screen Not Detected; U Cannabinoids Screen Not Detected; U Cocaine Screen Not Detected; U Methadone Screen Not Detected; U Methamphetamine Screen Not Detected; U Opiates Screen Not Detected; U Oxycodone Screen Not Detected; U Phencyclidine Screen Not Detected; U Propoxyphene Screen Not Detected
[2022-05-07 17:20] LABS: Red Blood Cells, Urine 0-2 /hpf (0-2); White Blood Cells, Urine 0-2 /hpf (0-5)
[2022-05-07 17:21] LABS: Bacteria Mod /hpf; Squamous Epithelial Cells Few /hpf (Few)
--- NOTE | 2022-05-07 18:51 | NUR ---
PCU ADMIT PT BROUGHT TO PCU-09 BY LIZ FROM ER @ APPROX 1830. PT LETHARGIC, DOES NOT OPEN EYES. [facility] BED BY STAFF MEMBERS. PT BP ELEVATED. PRN IV HYDRALAZINE GIVEN PER EMAR. MONITOR SHOWING ST, HR 110s. SPO2 > 92% ON RA. PREVIOUS TRACH SCAR NOTED, WELL HEALED. PT INCONTINENT OF URINE, ATTENDS CHANGED UPON ARRIVAL TO PCU. PT UNABLE TO FOLLOW INSTRUCTIONS. WILL REPORT OFF TO ACCEPTING RN.
--- NOTE | 2022-05-08 04:11 | NUR ---
SHIFT SUMMARY PT REMAINS LETHARGIC AND ONLY OPENING EYES TO HER NAME BEING CALLED. PT MOANS WHEN ASKED QUESTIONS. HR REMAINS NSR. BP STABLE. PT DOES NOT SHOW ANY SIGNS OF PAIN. PT INCONTINENT OF URINE ALL SHIFT AND ATTENDS CHANGED NEEDED. PT TAKEN TO MRI AT START OF SHIFT AND PREMEDICATED WITH ATIVAN TO HELP KEEP HER STILL. PER DRY WALL NAILER, PT DID NOT STAY STILL AND IMAGES MIGHT NOT BE CLEAR. WILL CONTINUE TO MONITOR AND REPORT OFF TO ONCOMING RN
[2022-05-08 04:35] LABS: BASOPHILS ABSOLUTE AUTO 0.03 K/mm3 (0.00-0.23); BASOPHILS PERCENT AUTO 0 % (0-2); EOSINOPHILS ABSOLUTE AUTO 0.01 K/mm3 (0.00-0.68); EOSINOPHILS PERCENT AUTO 0 % (0-6); Hematocrit 32.6 % (33.0-51.0); Hemoglobin 10.9 g/dL (11.5-16.0); IMMATURE GRAN ABSOLUTE AUTO 0.02 K/mm3 (0.00-0.10); IMMATURE GRAN PERCENT AUTO 0 % (0-1); LYMPHOCYTES ABSOLUTE AUTO 2.53 K/mm3 (0.84-5.20); LYMPHOCYTES PERCENT AUTO 29 % (21-46); MONOCYTES ABSOLUTE AUTO 0.64 K/mm3 (0.16-1.47); MONOCYTES PERCENT AUTO 7 % (4-13); Mean Corpuscular HGB Conc 33.4 g/dL (31.5-36.5); Mean Corpuscular Volume 75 fL (80-100); NEUTROPHILS ABSOLUTE AUTO 5.37 K/mm3 (1.96-9.15); NEUTROPHILS PERCENT AUTO 63 % (41-73); Platelet Count 249 K/mm3 (150-400); RDW Coefficient Variation 13.9 % (11.7-14.2); RDW Standard Deviation 36.9 fL (35.1-46.3); Red Blood Cell Count 4.36 M/mm3 (3.80-5.20)
[2022-05-08 04:56] LABS: Albumin, Blood 3.2 g/dL (3.4-5.0); Bilirubin, Total 0.5 mg/dL (0.1-1.0); Bun/Creatinine Ratio 10.7 (12.0-20.0); Calcium, Blood 8.4 mg/dL (8.5-10.1); Creatinine, Blood 0.65 mg/dL (0.40-1.00); Globulin, Blood 3.2 g/dL (2.2-4.0); Magnesium, Blood 1.6 mg/dL (1.6-2.4); Potassium, Blood 3.6 mmol/L (3.5-5.5); Total Protein, Blood 6.4 g/dL (6.4-8.2)
--- NOTE | 2022-05-08 14:48 | NUR ---
TRANSFER TO MEDICAL FLOOR UPON CARE ASSUMPTION, PT LETHARGIC, ONLY OPENING EYES BRIEFLY TO VERBAL STIMULI THEN CLOSING EYES & GOING BACK TO SLEEP. PT HAVING TO BE WOKEN MULTIPLE TIMES TO ANSWER Q's. PT ABLE TO STATE NAME & THAT SHE'S IN THE HOSPITAL. THIS AFTERNOON, PT MUCH MORE ALERT, ABLE TO KEEP EYES OPEN, ANSWER Q's & FOLLOW SIMPLE INSTRUCTIONS. PT A&O X3. PT WORKING W/ PT & ST THIS SHIFT. PT TRANSITIONED FROM NPO TO CARDIAC DIET. PT 1 PERSON ASSIST W/ FWW OOB. PT INCONTINENT, WEARING ATTENDS. REPORT GIVEN TO ACCEPTING MEDICAL FLOOR RN. PT TO BE TAKEN TO RM [id number] BY BED W/ BELONGINGS.
--- NOTE | 2022-05-08 15:48 | NUR ---
TRANSFER NOTE- PT TRANSFERED TO MEDICAL FLOOR FROM PCU 9 TELEPHONE REPORT COMPLETED WITH FORECAST ANALYST. PT TRANSFERED IN THE BED. SHORTLY AFTER ARRIVAL SHE SET OFF THE BED ALARM, WHEN STAFF RESPONDED SHE ASKED TO USE THE BATHROOM. PT WAS ABLE TO GET OOB WITH SBA TO THE BSC. PT HAS SOME TREMMORS AND SOME ATAXIC TYPE MOVEMENTS JERKY AND SUDDEN. THE PT WAS SEEN BY OT SHORTLY AFTER THAT AND WAS VERY EASILY FATIGUED. PT IS NOW IN BED SLEEPING. WILL CTM.
--- NOTE | 2022-05-08 17:18 | NUR ---
SHIFT SUMMARY- PT ALERT TO SELF, SHE CAN MAKE HER NEEDS KNOWN WHEN STAFF ARE PRESENT, SHE SETS OFF THE BED ALARM WHEN SHE NEEDS TO USE THE RESTROOM. 1PA TO THE BSC. PT WAS SEEN BY PT AND OT, BED AND CHAIR ALARMS ARE NEEDED FOR PT SAFETY. OT RECOMENDATION IS HOME WITH HOME HEALTH. PT IS CURRENTY IN BED, CALL LIGHT IN REACH, NO S&S OF DISTRESS. WILL CTM AND PASS ON TO NIGHT RN IN BEDSIDE REPORT.
[2022-05-08] MEDS ORDERED: TRAM50 PO (20:47)
[2022-05-08] MEDS ORDERED: XARELTO15 MG PO (21:11)
[2022-05-08] MEDS ORDERED: POTA10T PO (21:11)
[2022-05-08] MEDS ORDERED: VISBIOME 112.51 EACH PT (21:15)
[2022-05-08] MEDS ORDERED: HYDHCL25 PO (21:17)
[2022-05-08] MEDS ORDERED: HYDROCODON-ACET15 ML PO (21:18)
[2022-05-08] MEDS ORDERED: Q-Tussin100 MG/5 M PO (21:20)
[2022-05-08] MEDS ORDERED: DILT60 PO (21:25)
[2022-05-08] MEDS ORDERED: [UNRECOGNIZED DRUG - OTHER] TOP (21:29)
[2022-05-08] MEDS ORDERED: MICONAZOLE NITR85 GM TOP (21:30)
[2022-05-08] MEDS ORDERED: PAROEX473 ML PO (21:31)
[2022-05-08] MEDS ORDERED: AQUAPHOR ITCH R28 GM TOP (21:33)
[2022-05-08] MEDS ORDERED: ACETAMINOP160 MG/51 PT (21:33)
[2022-05-08] MEDS ORDERED: NEURONTIN300 MG PO (21:34)
[2022-05-08] MEDS ORDERED: XARELTO20 M1 PO (21:35)
[2022-05-08] MEDS ORDERED: LOPERAMIDE212 PO (21:35)
[2022-05-08] MEDS ORDERED: ACETAMINOPHEN500 M2 PO (21:37)
[2022-05-08] MEDS ORDERED: SODIUM CHLORIDE4 ML INH (21:38)
[2022-05-08] MEDS ORDERED: PULMICORT0.5 MG/21 INH (21:39)
[2022-05-08] MEDS ORDERED: LACT PO (21:40)
[2022-05-08] MEDS ORDERED: IPRAT-ALBUT 0.5-3 ML INH (21:41)
[2022-05-08] MEDS ORDERED: BANATROL PLUS PO (21:41)
[2022-05-08] MEDS ORDERED: Woman's Laxative5 MG PO (21:42)
[2022-05-08] MEDS ORDERED: NYSTRIT TOP (21:43)
[2022-05-08] MEDS ORDERED: EUTHYROX25 MC1 PO (21:44)
--- NOTE | 2022-05-09 00:07 | NUR ---
awake. c/o headache. Tylenol admin -see JOAQUÍN garcia details. BP 187/115. Aprasoline admin as ordered. Will reassess later. Call light in reach.
--- NOTE | 2022-05-09 01:55 | NUR ---
BP REMAINS ELEVATED - WAS 187/115, WITH PEREZ, MEDICATED WITH APRASOLINE 10 MG IV AND PO TYLENOL. RECHECKED LATER, BP DOWN TO 167/104, BUT VOICED PEREZ RETURNING. BP 176/89, HR 94. ALERT AND ORIENTED. VOICED PEREZ AFFECTING BILATERAL TEMPORAL AREASD NOTIFIED. ORDERS RECEIVED FOR ANOTHER 10 MG APRASOLINE IV AND TO START FENTANLY IV. SEE MAR FOR DETAILS. CALL LIGHT IN REACH.
--- NOTE | 2022-05-09 03:35 | NUR ---
COUNSELING CENTER MANAGER SUMMARY MORE ALERT APPEARING THAN REPORTED ON DAY SHIFT. VERBAL RESPONSE AND PHYSICAL ACTIONS/REACTIONS BECOMING MORE APPROPRIATE THS SHIFT CONTINUES THROUGH. BP REMAINS ELEVATED WITH VOICED HEADACHE OF BILAT TEMPORAL LOBE AREAS. MEDICATED FOR PAIN AND BP, SEE MAR FOR DETAILS. MD WAS MADE AWARE OF SAID ISSUES. SOME INTERMITTENT RESTING, BUT AWAKE AT THIS TIME. CALL LIGHT IN REACH. WILL CONTINUE TO MONITOR - NEURO CHECKS ABOUT Q 4 HRS, ABLE TO MOVE ALL 4 EXT AND DENIES LOSS OF FEELING WHEN ASKED.
--- NOTE | 2022-05-09 04:18 | NUR ---
NAUSEA AND HEADACHE CONTINUES. BP STILL ELEVATED. NOTIFIED. ZOFRAN IV AND IMITREX PO ORDERED AND GIVEN. SEE MAR. ENCOURAGED TO RELAX. WAS UP TO BATHROOM, NOW BACK IN BED. HOB ELEVATED. CALL LIGHT IN REACH.
[2022-05-09 05:44] LABS: BASOPHILS ABSOLUTE AUTO 0.04 K/mm3 (0.00-0.23); BASOPHILS PERCENT AUTO 1 % (0-2); EOSINOPHILS ABSOLUTE AUTO 0.05 K/mm3 (0.00-0.68); EOSINOPHILS PERCENT AUTO 1 % (0-6); Hematocrit 37.9 % (33.0-51.0); Hemoglobin 12.5 g/dL (11.5-16.0); IMMATURE GRAN ABSOLUTE AUTO 0.02 K/mm3 (0.00-0.10); IMMATURE GRAN PERCENT AUTO 0 % (0-1); LYMPHOCYTES ABSOLUTE AUTO 2.23 K/mm3 (0.84-5.20); LYMPHOCYTES PERCENT AUTO 29 % (21-46); MONOCYTES ABSOLUTE AUTO 0.56 K/mm3 (0.16-1.47); MONOCYTES PERCENT AUTO 7 % (4-13); Mean Corpuscular HGB 25.2 pg (26.0-34.0); Mean Corpuscular Volume 76 fL (80-100); NEUTROPHILS ABSOLUTE AUTO 4.91 K/mm3 (1.96-9.15); NEUTROPHILS PERCENT AUTO 63 % (41-73); Platelet Count 263 K/mm3 (150-400); RDW Coefficient Variation 14.3 % (11.7-14.2); RDW Standard Deviation 38.6 fL (35.1-46.3); Red Blood Cell Count 4.96 M/mm3 (3.80-5.20); White Blood Cell Count 7.81 K/mm3 (4.00-11.30)
[2022-05-09 06:20] LABS: Albumin, Blood 3.5 g/dL (3.4-5.0); Anion Gap 7 mmol/L (6-16); Blood Urea Nitrogen 7 mg/dL (8-24); Bun/Creatinine Ratio 11.4 (12.0-20.0); CO2, Blood 24 mmol/L (21-32); Calcium, Blood 9.1 mg/dL (8.5-10.1); Chloride, Blood 101 mmol/L (98-108); Creatinine, Blood 0.61 mg/dL (0.40-1.00); Glomerular Filtration Rate 97 (60-); Glucose, Blood 131 mg/dL (70-99); Phosphorus, Blood 3.6 mg/dL (2.5-4.9); Potassium, Blood 3.4 mmol/L (3.5-5.5); Sodium, Blood 132 mmol/L (136-145)
--- NOTE | 2022-05-09 18:27 | NUR ---
PT AAOX1 THIS SHIFT. RN HAD A HARD TIME CONTROLLING PT'S PEREZ PAIN. PT DID NOT EAT BREAKFAST OR LUNCH, BUT ONCE PEREZ PAIN WAS CONTROLLED AT DINNER, PT ATE 90% OF DINNER. NEURO CHECKS UNCHANGED THIS SHIFT. BOTH SIDES ARE WEAK, BUT LEFT SIDE IS WEAKER THAN RIGHT.
--- NOTE | 2022-05-10 03:40 | NUR ---
SENIOR ANIMATOR SUMMARY VSS. ALERT AND ORIENTED X 4. RESPONDS TO VERBAL QUESTIONS APPROPRIATELY. HAILEE. NEURO CHECKS - LEFT SIDE WEAKER THAN RIGHT, BUT HAS NO LOSS OF FEELING X 4 EXT. HAS BEEN RESTING QUIETLY WITH FEW INTERRUPTIONS. UP TO RESTROOM WITH OBS AND WALKER. CALL LIGHT IN REACH. WILL CONTINUE TO MONITOR
[2022-05-10] MEDS ORDERED: Acetaminophen325 M1 PO (12:04)
[2022-05-10] MEDS ORDERED: ZEBUTAL 50-3251 EAC1 PO (12:47)
--- NOTE | 2022-05-10 17:20 | NUR ---
DISCHARGE TO HOME HEALTH. PT IS ALERT AND ORIENTED X4, R/A. SLIGHT LEFT SIDED DEFICIT. USE OF WALKER TO MOVE AROUND THE ROOM. DISCHARGE INSTRUCTIONS DISCUSSED WITH PT AND SPOUSE.
== END 2022-05-10 15:46 | disposition home health service (06) | DRG 92 ==
LOC: ER 13:29 → PCU 17:37 → MEDS 05-08 15:15
PROVIDERS: Emergency Medicine; Family Medicine; ADMIT Internal Medicine
DX: G92.8 Other toxic encephalopathy (principal); E87.1 Hypo-osmolality and hyponatremia; I47.1 Supraventricular tachycardia; G89.29 Other chronic pain; J45.909 Unspecified asthma, uncomplicated; I10 Essential (primary) hypertension; G54.1 Lumbosacral plexus disorders; F41.9 Anxiety disorder, unspecified; E03.9 Hypothyroidism, unspecified; Z86.711 Personal history of pulmonary embolism; Z87.891 Personal history of nicotine dependence; E87.6 Hypokalemia; R56.9 Unspecified convulsions; T43.95XA Adverse effect of unspecified psychotropic drug, initial encounter; R51.9 Headache, unspecified
CPT/HCPCS: 36415; 51701; 70450; 70551; 71045; 80053; 80069; 81001; 82803; 82947; 83735; 84145; 84146; 84443; 85025; 85520; 85610; 85730; 87040; 87086; 92526; 92610; 93005; 93010; 96374-59; 96376-59; 97110; 97116; 97162; 97165; 97530; 99285-25; A9270; J0360; J1650; J1953; J2060; J2405; J3010; J7050

== ENCOUNTER 2022-12-10 11:06 | Day surgery (SDC) | payer MEDICARE, OTHER ==
[2022-12-10] VITALS (13 sets, daily range): BP systolic 115–169; BP diastolic 58–94
[~2022-12-10] VITALS: Ht 162.6 cm; Wt 66.6 kg
[~2022-12-10 11:06] MED LIST changes: +ACETAMINOP160 MG/51 PT; +ACETAMINOPHEN500 M2 PO; +AQUAPHOR ITCH R28 GM TOP; +Acetaminophen325 M1 PO; +BANATROL PLUS PO; +DILT60 PO; +ESTRADIOL-NORE1 EAC1 PO; +EUTHYROX25 MC1 PO; +FOLI1 PO; +GABA300 PO; +HYDHCL25 PO; +HYDROCODON-ACET15 ML PO; +LACT PO; +LOPERAMIDE212 PO; +MICONAZOLE NITR85 GM TOP; +NEURONTIN300 MG PO; +NYSTRIT TOP; +PAROEX473 ML PO; +POTA10T PO; +PULMICORT0.5 MG/21 INH; +Percocet 5-3251 EACH PO; +SODIUM CHLORIDE4 ML INH; +VISBIOME 112.51 EACH PT; +Woman's Laxative5 MG PO; +XARELTO20 M1 PO; +ZEBUTAL 50-3251 EAC1 PO; +[UNRECOGNIZED DRUG - OTHER] TOP
--- NOTE | 2022-12-10 12:34 | NUR ---
Ambulatory in Day Surgery History, Chart, Medications and Allergies reviewed before start of procedure.Pre-Op teaching done. Pt verbalizes understanding. Patient confirms NPO status and agrees with scheduled surgery.
[2022-12-10] MEDS ORDERED: DILT60 ×2 (12:41)
[2022-12-10] MEDS ORDERED: ESCI20 PO ×2 (12:42)
[2022-12-10] MEDS ORDERED: LEVE500 ×2 (12:43)
[2022-12-10] MEDS ORDERED: OMEP20ER ×2 (12:43)
[2022-12-10] MEDS ORDERED: B-1100 M1 ×2 (12:44)
[2022-12-10] MEDS ORDERED: FOLI1 ×2 (12:44)
[2022-12-10] MEDS ORDERED: LEVSOD25 ×2 (12:44)
[2022-12-10] MEDS ORDERED: Buspirone HCl15 MG ×2 (12:45)
[2022-12-10] MEDS ORDERED: MONT10T ×2 (12:45)
[2022-12-10] MEDS ORDERED: SYMBICORT 160-4.6 GM ×2 (12:45)
--- NOTE | 2022-12-10 13:23 | NUR ---
History, Chart, Medications and Allergies reviewed before start of procedure. Pre-Op teaching done. Pt verbalizes understanding. Patient confirms NPO status and agrees with scheduled surgery. Patient reports completing Chlorhexadine shower X5 prior to admission to hospital. Surgical site prepped with 2% Chlorhexidine cloth wipe. Patient States Post-Procedure ride home has been arranged.
--- NOTE | 2022-12-10 15:40 | NUR ---
12/10/22 1540 Beverly Larios SPINAL NERVE BLOCK COMPLETED BY DR. GONZALEZ UPON ENTRY TO THE OR. PT TOLERATED WELL.
--- NOTE | 2022-12-10 19:00 | NUR ---
ADMIT NOTE NEW ADMIT TO UNIT FROM PACU POD [address] DAVISON. ALERT AND ORIENTED, PLEASANT AND COOPERATIVE. SPINAL IN EFFECT, NO PAIN AT THIS TIME. POST OP VSS. TOLERATING REGULAR DIET AND LIQUIDS. IV FLUIDS RUNNING. NO VOID AT THIS TIME, WILL CONTINUE TO MONITOR WITH BS. RIGHT KNEE WITH AQUACEL AND WANDY C/D/I. REPORT GIVEN TO NECKTIE CENTRALIZING MACHINE OPERATOR RN'S.
[2022-12-11 04:24] VITALS: BP 143/91
--- NOTE | 2022-12-11 04:33 | NUR ---
SHIFT SUMMARY POD 1 R TKA. NO ACUTE CHANGES OVERNIGHT. VSS. WANDY WRAP/AQUACEL C/D/I, POLAR PACK IN PLACE. TOLERATING ORALS. PT AMBULATED TO BEDSIDE COMODE VIA FWW & GAIT BELT. TOILETING INDEPENDENTLY. ANTICIPATED DISCHARGE LATER TODAY. CALL LIGHT WITHIN REACH, BED IN LOWEST POSITION, WILL REPORT TO DAY RN.
[2022-12-11 04:34] LABS: BASOPHILS ABSOLUTE AUTO 0.01 K/mm3 (0.00-0.23); BASOPHILS PERCENT AUTO 0 % (0-2); EOSINOPHILS PERCENT AUTO 0 % (0-6); Hematocrit 29.6 % (33.0-51.0); Hemoglobin 9.8 g/dL (11.5-16.0); IMMATURE GRAN ABSOLUTE AUTO 0.03 K/mm3 (0.00-0.10); IMMATURE GRAN PERCENT AUTO 0 % (0-1); LYMPHOCYTES ABSOLUTE AUTO 0.82 K/mm3 (0.84-5.20); LYMPHOCYTES PERCENT AUTO 10 % (21-46); MONOCYTES PERCENT AUTO 1 % (4-13); Mean Corpuscular HGB 26.8 pg (26.0-34.0); Mean Corpuscular HGB Conc 33.1 g/dL (31.5-36.5); Mean Corpuscular Volume 81 fL (80-100); NEUTROPHILS ABSOLUTE AUTO 6.97 K/mm3 (1.96-9.15); NEUTROPHILS PERCENT AUTO 88 % (41-73); Platelet Count 250 K/mm3 (150-400); RDW Coefficient Variation 12.5 % (11.7-14.2); RDW Standard Deviation 37.2 fL (35.1-46.3); Red Blood Cell Count 3.65 M/mm3 (3.80-5.20); White Blood Cell Count 7.93 K/mm3 (4.00-11.30)
[2022-12-11 05:09] LABS: Bun/Creatinine Ratio 14.8 (12.0-20.0); Calcium, Blood 8.3 mg/dL (8.5-10.1); Creatinine, Blood 0.94 mg/dL (0.40-1.00); Potassium, Blood 4.4 mmol/L (3.5-5.5)
[2022-12-11 07:25] VITALS: BP 148/89
--- NOTE | 2022-12-11 08:16 | NUR ---
FLORENCIO/THERAPY IN TO SEE PT.
--- NOTE | 2022-12-11 09:42 | NUR ---
"Spiritual Care Visit | Pt. request Pt. is sitting up in her recliner and is eating breakfast when she welcomed my visit. Pt. is pleasant. Faciliated a short life context and review and established rapport. Pt. dislpayed evidence of being aware and engaged in the conversation. Prayed with Pt. Pt. verbalized gratitude for the spiritual care visit."
[2022-12-11] MEDS ORDERED: LIOT5 PO ×2 (10:25)
[2022-12-11] MEDS ORDERED: ASPI81CH PO ×2 (10:25)
--- NOTE | 2022-12-11 11:17 | NUR ---
DISCHARGED REVIEWED DC INSTRUCTIONS W/PT AND SPOUSE; VERBALIZED UNDERSTANDING. PT LEFT UNIT IN WC W/POSSESSIONS AND DC PAPERWORK IN HAND TO RIDE W/SPOUSE. PROVIDED AQUACEL DRESSING CHANGES AND SPOUSE TOOK POLAR PACK.
== END 2022-12-11 11:16 | disposition home or self-care (01) ==
LOC: ORSCMMR 11:06 → ORD 12:30 → ORSCMMR 12:30 → ORD 13:45 → SURS 15:32 → ORSCMMR 12-11 11:16 → SURS 12-11 11:16
PROVIDERS: Orthopaedic Surgery
PROC: 0SRC0JA Replacement of Right Knee Joint with Synthetic Substitute, Uncemented, Open Approach (ICD-10-PCS; principal; 2022-12-10 13:00)
DX: M17.11 Unilateral primary osteoarthritis, right knee (principal); E03.9 Hypothyroidism, unspecified; J44.9 Chronic obstructive pulmonary disease, unspecified; Z87.891 Personal history of nicotine dependence; I12.9 Hypertensive chronic kidney disease with stage 1 through stage 4 chronic kidney disease, or unspecified chronic kidney disease; N18.9 Chronic kidney disease, unspecified; Z86.73 Personal history of transient ischemic attack (TIA), and cerebral infarction without residual deficits; Z79.899 Other long term (current) drug therapy
CPT/HCPCS: 36415; 73560-RT; 80048; 85025; 97110; 97116; 97162; 97530; A9270; C1713; C1776; J0171; J0690; J0735; J1100; J1885; J2250; J2371; J2704; J2795; J3010; J7120

== ENCOUNTER 2022-12-13 14:51 | Emergency (ER) | payer MEDICARE, OTHER ==
[~2022-12-13] VITALS: Ht 152.4 cm; Wt 65.8 kg
[~2022-12-13 14:51] MED LIST changes: +ASPI81CH PO; +B-1100 M1; +Buspirone HCl15 MG; +DILT60; +FOLI1; +LEVE500; +LEVSOD25; +MONT10T; +OMEP20ER; +SYMBICORT 160-4.6 GM
[2022-12-13 16:18] LABS: BASOPHILS ABSOLUTE AUTO 0.05 K/mm3 (0.00-0.23); BASOPHILS PERCENT AUTO 0 % (0-2); EOSINOPHILS ABSOLUTE AUTO 0.11 K/mm3 (0.00-0.68); EOSINOPHILS PERCENT AUTO 1 % (0-6); Hematocrit 31.6 % (33.0-51.0); IMMATURE GRAN ABSOLUTE AUTO 0.04 K/mm3 (0.00-0.10); IMMATURE GRAN PERCENT AUTO 0 % (0-1); LYMPHOCYTES ABSOLUTE AUTO 1.75 K/mm3 (0.84-5.20); LYMPHOCYTES PERCENT AUTO 15 % (21-46); MONOCYTES ABSOLUTE AUTO 0.82 K/mm3 (0.16-1.47); MONOCYTES PERCENT AUTO 7 % (4-13); Mean Corpuscular HGB 26.2 pg (26.0-34.0); Mean Corpuscular HGB Conc 31.6 g/dL (31.5-36.5); Mean Corpuscular Volume 83 fL (80-100); Mean Platelet Volume 8.8 fL (9.1-12.4); NEUTROPHILS ABSOLUTE AUTO 8.86 K/mm3 (1.96-9.15); NEUTROPHILS PERCENT AUTO 76 % (41-73); Platelet Count 282 K/mm3 (150-400); RDW Coefficient Variation 12.7 % (11.7-14.2); RDW Standard Deviation 38.5 fL (35.1-46.3); Red Blood Cell Count 3.81 M/mm3 (3.80-5.20); White Blood Cell Count 11.63 K/mm3 (4.00-11.30)
[2022-12-13] MEDS ORDERED: LEVE500 PO (16:21)
[2022-12-13] MEDS ORDERED: Percocet 5-3251 EACH PO (16:22)
[2022-12-13 16:31] LABS: Albumin, Blood 3.1 g/dL (3.4-5.0); Albumin/Globulin Ratio 0.8 (0.8-1.8); Bilirubin, Total 0.7 mg/dL (0.1-1.0); Bun/Creatinine Ratio 18.3 (12.0-20.0); Calcium, Blood 8.4 mg/dL (8.5-10.1); Creatinine, Blood 0.93 mg/dL (0.40-1.00); Globulin, Blood 3.7 g/dL (2.2-4.0); Potassium, Blood 3.5 mmol/L (3.5-5.5); Total Protein, Blood 6.8 g/dL (6.4-8.2)
[2022-12-13] MEDS ORDERED: CELE100 PO (17:13)
[2022-12-13 17:30] VITALS: BP 153/91
== END 2022-12-13 17:42 | disposition home or self-care (01) ==
LOC: ER 14:51
PROVIDERS: Physician Assistant
DX: G89.18 Other acute postprocedural pain (principal); R60.0 Localized edema; I10 Essential (primary) hypertension; J45.909 Unspecified asthma, uncomplicated; Z88.5 Allergy status to narcotic agent; Z88.2 Allergy status to sulfonamides; Z88.6 Allergy status to analgesic agent; Z88.1 Allergy status to other antibiotic agents; Z79.51 Long term (current) use of inhaled steroids; Z79.899 Other long term (current) drug therapy
CPT/HCPCS: 80053; 85025; 93971; 99284-25

== ENCOUNTER → 2023-01-08 | Outpatient (CLI) | payer MEDICARE, OTHER ==
[~2023-01-08] MED LIST changes: +CELE100 PO
[2023-01-08 14:58] LABS: BASOPHILS ABSOLUTE AUTO 0.04 K/mm3 (0.00-0.23); BASOPHILS PERCENT AUTO 0 % (0-2); EOSINOPHILS ABSOLUTE AUTO 0.13 K/mm3 (0.00-0.68); EOSINOPHILS PERCENT AUTO 1 % (0-6); Hematocrit 31.2 % (33.0-51.0); Hemoglobin 10.4 g/dL (11.5-16.0); IMMATURE GRAN ABSOLUTE AUTO 0.05 K/mm3 (0.00-0.10); IMMATURE GRAN PERCENT AUTO 1 % (0-1); LYMPHOCYTES ABSOLUTE AUTO 2.15 K/mm3 (0.84-5.20); LYMPHOCYTES PERCENT AUTO 22 % (21-46); MONOCYTES ABSOLUTE AUTO 0.72 K/mm3 (0.16-1.47); MONOCYTES PERCENT AUTO 7 % (4-13); Mean Corpuscular HGB 25.6 pg (26.0-34.0); Mean Corpuscular HGB Conc 33.3 g/dL (31.5-36.5); Mean Corpuscular Volume 77 fL (80-100); Mean Platelet Volume 8.8 fL (9.1-12.4); NEUTROPHILS ABSOLUTE AUTO 6.83 K/mm3 (1.96-9.15); NEUTROPHILS PERCENT AUTO 69 % (41-73); Platelet Count 353 K/mm3 (150-400); RDW Coefficient Variation 13.7 % (11.7-14.2); RDW Standard Deviation 37.3 fL (35.1-46.3); Red Blood Cell Count 4.07 M/mm3 (3.80-5.20); White Blood Cell Count 9.92 K/mm3 (4.00-11.30)
[2023-01-08 16:00] LABS: Albumin, Blood 3.4 g/dL (3.4-5.0); Albumin/Globulin Ratio 0.9 (0.8-1.8); Bilirubin, Total 0.7 mg/dL (0.1-1.0); Bun/Creatinine Ratio 14.6 (12.0-20.0); Calcium, Blood 9.3 mg/dL (8.5-10.1); Creatinine, Blood 0.82 mg/dL (0.40-1.00); Globulin, Blood 3.7 g/dL (2.2-4.0); Potassium, Blood 3.8 mmol/L (3.5-5.5); Total Protein, Blood 7.1 g/dL (6.4-8.2)
== END | disposition home or self-care (01) ==
LOC: LAB 14:49 → LAB SHORT 14:49
PROVIDERS: Physician Assistant
DX: R10.9 Unspecified abdominal pain (principal)
CPT/HCPCS: 80053; 83605; 85025; 85651; 86140

== ENCOUNTER 2023-01-14 12:41 | Emergency (ER) | payer OTHER, MEDICARE ==
[~2023-01-14] VITALS: Ht 162.6 cm; Wt 61.2 kg
[2023-01-14 13:10] VITALS: BP 144/106
[2023-01-14] MEDS ORDERED: Clindamycin HC150 MG PO ×2 (17:14→17:34)
== END 2023-01-14 17:57 | disposition home or self-care (01) ==
LOC: ER 12:41
DX: T81.32XA Disruption of internal operation (surgical) wound, not elsewhere classified, initial encounter (principal); Z96.651 Presence of right artificial knee joint; W01.10XA Fall on same level from slipping, tripping and stumbling with subsequent striking against unspecified object, initial encounter; Z88.5 Allergy status to narcotic agent; Z88.1 Allergy status to other antibiotic agents; Z88.2 Allergy status to sulfonamides; Z79.899 Other long term (current) drug therapy; J45.909 Unspecified asthma, uncomplicated; I10 Essential (primary) hypertension; Z87.891 Personal history of nicotine dependence
CPT/HCPCS: 73562-RT; 99283-25; A9270

== ENCOUNTER 2023-01-21 04:33 | Emergency (ER) | payer MEDICARE, OTHER ==
[~2023-01-21] VITALS: Ht 167.6 cm; Wt 72.6 kg
[~2023-01-21 04:33] MED LIST changes: +Clindamycin HC150 MG PO
[2023-01-21 05:28] LABS: BASOPHILS ABSOLUTE AUTO 0.07 K/mm3 (0.00-0.23); BASOPHILS PERCENT AUTO 1 % (0-2); EOSINOPHILS PERCENT AUTO 2 % (0-6); Hematocrit 34.5 % (33.0-51.0); IMMATURE GRAN ABSOLUTE AUTO 0.02 K/mm3 (0.00-0.10); IMMATURE GRAN PERCENT AUTO 0 % (0-1); LYMPHOCYTES ABSOLUTE AUTO 3.01 K/mm3 (0.84-5.20); LYMPHOCYTES PERCENT AUTO 35 % (21-46); MONOCYTES ABSOLUTE AUTO 0.62 K/mm3 (0.16-1.47); MONOCYTES PERCENT AUTO 7 % (4-13); Mean Corpuscular HGB 24.4 pg (26.0-34.0); Mean Corpuscular HGB Conc 31.9 g/dL (31.5-36.5); Mean Corpuscular Volume 77 fL (80-100); Mean Platelet Volume 9.7 fL (9.1-12.4); NEUTROPHILS ABSOLUTE AUTO 4.73 K/mm3 (1.96-9.15); NEUTROPHILS PERCENT AUTO 55 % (41-73); Platelet Count 435 K/mm3 (150-400); RDW Coefficient Variation 13.9 % (11.7-14.2); RDW Standard Deviation 38.3 fL (35.1-46.3); White Blood Cell Count 8.65 K/mm3 (4.00-11.30)
[2023-01-21 05:39] LABS: Ethanol (Alcohol), Blood, Med <3 mg/dL; Magnesium, Blood 1.9 mg/dL (1.6-2.4); Salicylate <1.7 mg/dL (2.8-20.0)
[2023-01-21 05:52] LABS: Source, Urine Clean Catch
[2023-01-21 05:57] LABS: International Normalized Ratio 0.98; Prothrombin Time Results 10.3 Sec (9.7-11.5)
[2023-01-21 05:58] LABS: Appearance, Urine Hazy (Clear); Bilirubin, Urine Neg (Neg); Blood, Urine Neg (Neg); Color, Urine Yellow (P-Yellow); Glucose Qualitative, Urine Neg (Neg); Ketones, Urine Neg (Neg); Leukocyte Esterase, Urine Neg (Neg); Nitrite, Urine Neg (Neg); Protein, Urine 2+ (Neg); Urobilinogen, Urine NORM (Normal)
[2023-01-21 06:10] LABS: Amorphous Mod (0-Heavy); Bacteria Rare /hpf; Mucus Light (0-Heavy); Squamous Epithelial Cells Many /hpf (Few); Transitional Epithelial Cells Rare /hpf (0-Rare); White Blood Cells, Urine 0-2 /hpf (0-5)
[2023-01-21 06:11] LABS: Hyaline Casts 0-2 /lpf (0-2)
[2023-01-21 06:24] LABS: Alanine Aminotransfer (ALT/SGP 13 U/L (12-78); Albumin, Blood 3.3 g/dL (3.4-5.0); Albumin/Globulin Ratio 0.9 (0.8-1.8); Alk Phos 94 U/L (50-136); Anion Gap 6 mmol/L (6-16); Aspartate Aminotrans (AST/SGOT 30 U/L (12-37); Bilirubin, Total 0.4 mg/dL (0.1-1.0); Blood Urea Nitrogen 24 mg/dL (8-24); Bun/Creatinine Ratio 25.2 (12.0-20.0); CO2, Blood 27 mmol/L (21-32); Calcium, Blood 8.9 mg/dL (8.5-10.1); Chloride, Blood 103 mmol/L (98-108); Creatinine, Blood 0.95 mg/dL (0.40-1.00); Globulin, Blood 3.6 g/dL (2.2-4.0); Glomerular Filtration Rate 65 (60-); Glucose, Blood 108 mg/dL (70-99); Phosphorus, Blood 3.8 mg/dL (2.5-4.9); Potassium, Blood 4.1 mmol/L (3.5-5.5); Sodium, Blood 136 mmol/L (136-145); Total Protein, Blood 6.9 g/dL (6.4-8.2)
[2023-01-21 06:25] LABS: Acetaminophen, Random <2.0 ug/mL (10.0-30.0)
[2023-01-21 06:32] LABS: U Amphetamine Screen Not Detected; U Barbituate Screen Not Detected; U Benzodiazapine Screen Not Detected; U Buprenorphine Screen Not Detected; U Cannabinoids Screen Not Detected; U Cocaine Screen Not Detected; U Methadone Screen Not Detected; U Methamphetamine Screen Not Detected; U Opiates Screen Not Detected; U Oxycodone Screen Not Detected; U Phencyclidine Screen Not Detected
[2023-01-21 07:57] LABS: Base Excess Venous 0 mmol/L; Bicarbonate Venous 24.3 mmol/L (24.0-30.0); PCO2 Venous 40.7 mmHg (38-42)
[2023-01-21 10:56] VITALS: BP 131/77
== END 2023-01-21 11:00 | disposition home or self-care (01) ==
LOC: ER 04:33
PROVIDERS: Emergency Medicine
DX: R41.82 Altered mental status, unspecified (principal); J45.909 Unspecified asthma, uncomplicated; I10 Essential (primary) hypertension; G89.29 Other chronic pain; Z88.5 Allergy status to narcotic agent; Z88.1 Allergy status to other antibiotic agents; Z88.2 Allergy status to sulfonamides; Z79.899 Other long term (current) drug therapy; Z79.890 Hormone replacement therapy; Z79.51 Long term (current) use of inhaled steroids; Z79.82 Long term (current) use of aspirin
CPT/HCPCS: 70450; 71046; 80053; 81001; 82140; 82803; 83605; 83735; 84100; 84443; 85025; 85610; 85730; 93005; 93010; 99285-25; G0480

== ENCOUNTER 2023-06-29 15:24 | Emergency (ER) | payer MEDICARE, OTHER ==
[~2023-06-29] VITALS: Ht 175.3 cm; Wt 61.2 kg
[~2023-06-29 15:24] MED LIST changes: -B-1100 M1; -Buspirone HCl15 MG; +Buspirone HCl15 MG PO; -DILT60; +DOC250 PO; -FOLI1; -LEVSOD25; +LEVSOD25 PO; -MONT10T; -OMEP20ER; -SYMBICORT 160-4.6 GM; +SYMBICORT 160-4.6 GM INH
[2023-06-29 16:06] LABS: Source, Urine Fem Cath
[2023-06-29 16:09] LABS: BASOPHILS ABSOLUTE AUTO 0.03 K/mm3 (0.00-0.23); BASOPHILS PERCENT AUTO 0 % (0-2); EOSINOPHILS ABSOLUTE AUTO 0.08 K/mm3 (0.00-0.68); EOSINOPHILS PERCENT AUTO 1 % (0-6); Hematocrit 36.9 % (33.0-51.0); Hemoglobin 12.1 g/dL (11.5-16.0); IMMATURE GRAN ABSOLUTE AUTO 0.02 K/mm3 (0.00-0.10); IMMATURE GRAN PERCENT AUTO 0 % (0-1); LYMPHOCYTES ABSOLUTE AUTO 2.98 K/mm3 (0.84-5.20); LYMPHOCYTES PERCENT AUTO 33 % (21-46); MONOCYTES ABSOLUTE AUTO 0.45 K/mm3 (0.16-1.47); MONOCYTES PERCENT AUTO 5 % (4-13); Mean Corpuscular HGB 24.6 pg (26.0-34.0); Mean Corpuscular HGB Conc 32.8 g/dL (31.5-36.5); Mean Corpuscular Volume 75 fL (80-100); Mean Platelet Volume 8.7 fL (9.1-12.4); NEUTROPHILS PERCENT AUTO 60 % (41-73); Platelet Count 336 K/mm3 (150-400); RDW Coefficient Variation 14.8 % (11.7-14.2); RDW Standard Deviation 39.6 fL (35.1-46.3); Red Blood Cell Count 4.92 M/mm3 (3.80-5.20); White Blood Cell Count 8.96 K/mm3 (4.00-11.30)
[2023-06-29 16:20] LABS: Appearance, Urine Clear (Clear); Bilirubin, Urine Neg (Neg); Blood, Urine Neg (Neg); Color, Urine Yellow (P-Yellow); Glucose Qualitative, Urine Neg (Neg); Ketones, Urine 2+ (Neg); Leukocyte Esterase, Urine Neg (Neg); Nitrite, Urine Neg (Neg); Protein, Urine Neg (Neg); Specific Gravity, Urine 1.015 (1.003-1.022); Urobilinogen, Urine NORM (Normal)
[2023-06-29 16:23] LABS: Albumin, Blood 3.7 g/dL (3.4-5.0); Bilirubin, Total 0.6 mg/dL (0.1-1.0); Bun/Creatinine Ratio 16.5 (12.0-20.0); Calcium, Blood 9.2 mg/dL (8.5-10.1); Creatinine, Blood 0.73 mg/dL (0.40-1.00); Globulin, Blood 3.6 g/dL (2.2-4.0); Potassium, Blood 3.9 mmol/L (3.5-5.5); Total Protein, Blood 7.3 g/dL (6.4-8.2)
[2023-06-29 19:45] VITALS: BP 164/109
[2023-06-29] MEDS ORDERED: ACETAMINOPHEN500 MG PO (19:55)
== END 2023-06-29 20:13 | disposition home or self-care (01) ==
LOC: ER 15:24
PROVIDERS: Student in an Organized Health Care Education/Training Program
DX: R41.82 Altered mental status, unspecified (principal); Z88.8 Allergy status to other drugs, medicaments and biological substances; Z88.2 Allergy status to sulfonamides; Z88.1 Allergy status to other antibiotic agents; Z88.5 Allergy status to narcotic agent; Z79.899 Other long term (current) drug therapy; J45.909 Unspecified asthma, uncomplicated; I10 Essential (primary) hypertension
CPT/HCPCS: 70450; 71045; 80053; 81003; 85025; 93005; 93010; 99285-25; P9612

== ENCOUNTER 2023-10-24 11:18 | Emergency (ER) | payer OTHER, MEDICARE ==
[~2023-10-24] VITALS: Ht 160 cm; Wt 63.5 kg
[~2023-10-24 11:18] MED LIST changes: +ACETAMINOPHEN500 MG PO
[2023-10-24 11:47] VITALS: BP 154/104
[2023-10-24] MEDS ORDERED: Diphth,Pertuss(Acell),Tet Vac 0.5 ML VIAL IM ONE (11:55)
== END 2023-10-24 14:20 | disposition home or self-care (01) ==
LOC: ER 11:18
DX: S81.811A Laceration without foreign body, right lower leg, initial encounter (principal); S01.111A Laceration without foreign body of right eyelid and periocular area, initial encounter; S01.511A Laceration without foreign body of lip, initial encounter; I10 Essential (primary) hypertension; W01.0XXA Fall on same level from slipping, tripping and stumbling without subsequent striking against object, initial encounter; Z86.73 Personal history of transient ischemic attack (TIA), and cerebral infarction without residual deficits; Z79.82 Long term (current) use of aspirin; Z79.899 Other long term (current) drug therapy; Z88.2 Allergy status to sulfonamides; Z88.5 Allergy status to narcotic agent; Z88.1 Allergy status to other antibiotic agents; Z88.8 Allergy status to other drugs, medicaments and biological substances
CPT/HCPCS: 12002; 12013; 70450; 72125; 90471; 90715; 99283-25

== ENCOUNTER 2024-02-20 11:51 | Emergency (ER) | payer MEDICARE, OTHER ==
[~2024-02-20] VITALS: Ht 162.6 cm; Wt 61.2 kg
[2024-02-20 12:50] LABS: BASOPHILS ABSOLUTE AUTO 0.03 K/mm3 (0.00-0.23); BASOPHILS PERCENT AUTO 0 % (0-2); EOSINOPHILS ABSOLUTE AUTO 0.11 K/mm3 (0.00-0.68); EOSINOPHILS PERCENT AUTO 1 % (0-6); Hematocrit 39.9 % (33.0-51.0); Hemoglobin 13.6 g/dL (11.5-16.0); IMMATURE GRAN ABSOLUTE AUTO 0.02 K/mm3 (0.00-0.10); IMMATURE GRAN PERCENT AUTO 0 % (0-1); LYMPHOCYTES ABSOLUTE AUTO 2.91 K/mm3 (0.84-5.20); LYMPHOCYTES PERCENT AUTO 33 % (21-46); MONOCYTES ABSOLUTE AUTO 0.44 K/mm3 (0.16-1.47); MONOCYTES PERCENT AUTO 5 % (4-13); Mean Corpuscular HGB 28.6 pg (26.0-34.0); Mean Corpuscular HGB Conc 34.1 g/dL (31.5-36.5); Mean Corpuscular Volume 84 fL (80-100); Mean Platelet Volume 8.2 fL (9.1-12.4); NEUTROPHILS ABSOLUTE AUTO 5.23 K/mm3 (1.96-9.15); NEUTROPHILS PERCENT AUTO 60 % (41-73); Platelet Count 316 K/mm3 (150-400); RDW Coefficient Variation 12.2 % (11.7-14.2); RDW Standard Deviation 37.2 fL (35.1-46.3); Red Blood Cell Count 4.76 M/mm3 (3.80-5.20); White Blood Cell Count 8.74 K/mm3 (4.00-11.30)
[2024-02-20 12:51] LABS: Influenza A, PCR NEGATIVE (NEGATIVE); Influenza B, PCR NEGATIVE (NEGATIVE); Resp Syncytial Virus, PCR NEGATIVE (NEGATIVE); SARS-Cov-2 (COVID-19) PCR, MMC NEGATIVE (NEGATIVE)
[2024-02-20] MEDS ORDERED: Albuterol 2.5 MG/3 ML VIAL INH SCH (13:05)
[2024-02-20] MEDS ORDERED: MethylPREDNISolone Sod Succ 125 MG Vial IV ONE (13:05)
[2024-02-20] MEDS ORDERED: LORazepam 2 MG/ML 1ML Injection IV ONE (13:05)
[2024-02-20 13:14] LABS: Albumin, Blood 3.9 g/dL (3.4-5.0); Albumin/Globulin Ratio 1.1 (0.8-1.8); Bilirubin, Total 0.5 mg/dL (0.1-1.0); Bun/Creatinine Ratio 17.5 (12.0-20.0); Calcium, Blood 9.3 mg/dL (8.5-10.1); Creatinine, Blood 0.91 mg/dL (0.40-1.00); Globulin, Blood 3.5 g/dL (2.2-4.0); Potassium, Blood 4.1 mmol/L (3.5-5.5); Total Protein, Blood 7.4 g/dL (6.4-8.2)
[2024-02-20 13:28] LABS: Base Excess Venous 2.4 mmol/L; Bicarbonate Venous 26.4 mmol/L (24.0-30.0); PCO2 Venous 35.1 mmHg (38-42); pH Blood Venous 7.48 (7.34-7.37)
[2024-02-20 13:40] LABS: Source, Urine Straight Cath
[2024-02-20] MEDS ORDERED: dexmedeTOMIDine 100 ML IV SCH (13:50)
[2024-02-20 14:31] LABS: Appearance, Urine Hazy (Clear); Bilirubin, Urine Neg (Neg); Blood, Urine Neg (Neg); Glucose Qualitative, Urine Neg (Neg); Ketones, Urine Neg (Neg); Leukocyte Esterase, Urine 2+ (Neg); Nitrite, Urine Neg (Neg); Protein, Urine 1+ (Neg); Urobilinogen, Urine NORM (Normal)
[2024-02-20 15:09] LABS: Color, Urine Pale Yellow (P-Yellow)
[2024-02-20 15:10] LABS: Bacteria Many /hpf; Squamous Epithelial Cells Mod /hpf (Few); Transitional Epithelial Cells Rare /hpf (0-Rare)
[2024-02-20 15:11] LABS: Hyaline Casts 0-2 /lpf (0-2); U Cannabinoids Screen DETECTED
[2024-02-20 15:12] LABS: U Amphetamine Screen Not Detected; U Barbituate Screen Not Detected; U Benzodiazapine Screen Not Detected; U Buprenorphine Screen Not Detected; U Cocaine Screen Not Detected; U Methadone Screen Not Detected; U Methamphetamine Screen Not Detected; U Opiates Screen Not Detected; U Oxycodone Screen Not Detected; U Phencyclidine Screen Not Detected
[2024-02-20] MEDS ORDERED: CefTRIAXone Sodium 1,000 MG in NS 50 ML IV ONE (15:20)
[2024-02-20] MEDS ORDERED: CEPH500 PO (16:00)
[2024-02-20 16:23] VITALS: BP 168/84
== END 2024-02-20 16:20 | disposition home or self-care (01) ==
LOC: ER 11:51
PROVIDERS: Emergency Medicine; Student in an Organized Health Care Education/Training Program
DX: J45.901 Unspecified asthma with (acute) exacerbation (principal); N39.0 Urinary tract infection, site not specified; M19.90 Unspecified osteoarthritis, unspecified site; I10 Essential (primary) hypertension; G43.909 Migraine, unspecified, not intractable, without status migrainosus; K21.9 Gastro-esophageal reflux disease without esophagitis; E03.9 Hypothyroidism, unspecified; Z79.82 Long term (current) use of aspirin; Z79.899 Other long term (current) drug therapy; Z88.2 Allergy status to sulfonamides; Z88.1 Allergy status to other antibiotic agents; Z88.8 Allergy status to other drugs, medicaments and biological substances
CPT/HCPCS: 0241U; 51701; 71046; 80053; 81001; 82803; 85025; 87077; 87086; 87186; 93005; 93010; 94644; 94664; 96365; 96375; 99285-25; J0696; J2060; J2919